=== PATIENT | female | born 1935 | race Caucasian/White ===

== ENCOUNTER 2020-01-09 09:56 | Outpatient (CLI) | payer MEDICARE, OTHER, SELFPAY ==
--- NOTE | 2020-01-09 10:04 | XR_ITS ---
WS: [id number] PROCEDURE: XR chest 2V* [id number] CLINICAL INFORMATION: COUGH COMPARISON: None. FINDINGS: Heart: Cardiomegaly. Lungs: Moderate chronic emphysematous changes. No acute pulmonary infiltrates. Bones: Hypertrophic changes thoracic spine. Cholecystectomy clips. Moderate thoracic kyphosis. XR/XR chest 2V* [id number] IMPRESSION: 1. Moderate chronic emphysematous changes. No acute pulmonary infiltrates. 2. Cardiomegaly.
== END 2020-01-09 09:57 | disposition home or self-care (01) ==
LOC: RADWPI 10:02
PROVIDERS: Family Provider Family Medicine; PCP Family Medicine; Visit Provider Specialist
DX: R05 Cough (principal); I51.7 Cardiomegaly
CPT/HCPCS: 71046

== ENCOUNTER 2020-01-22 10:02 | Outpatient (CLI) | payer MEDICARE, OTHER, SELFPAY ==
--- NOTE | 2020-01-22 10:07 | CT_ITS ---
WS: [id number] CT NECK TECHNIQUE: Contrast-enhanced CT of the neck with coronal and sagittal reformatted images. CLINICAL INFORMATION: R13.19 DYSPHAGIA COMPARISON: CT neck 6 20,017 DLP: 2414.[address] scans at [facility] use at least one of these dose optimization techniques: automat ed exposure control; mA and/or kV adjustment per patient size (includes targeted exams where dose is matched to clinical indication); or iterative reconstruction. FINDINGS: Dental artifact degrades images at the floor of mouth. Parotid glands are normal. Normal zaragoza bmandibular glands. Visualized posterior nasopharynx and tongue base appear normal. Normal parapharyn geal fat. Normal palatine tonsils. Normal submandibular glands. No evidence of supraglottic or glottic mass. Multinodular right thyroid goiter with left thyroid lobe ctomy. This appears unchanged since 2017. Mass effect on the trachea at the thoracic inlet is similar in appearance. No airway narrowing. Partially visualized intracranial contents appear unremarkable. Mastoid air cells and paranasal sinus es are well aerated. No cervical lymphadenopathy. CT/CT neck w con* [id number] IMPRESSION: 1. Multinodular right thyroid goiter appears stable since 2017. Stable mass ef fect on the trachea at the thoracic inlet. No airway narrowing. 2. Prior postoperative changes left thyroid lobectomy 3. No evidence of supraglottic or glottic mass. 4. No cervical lymphadenopathy. 5. No other significant findings.
[2020-01-22 10:56] LABS: Blood Urea Nitrogen 11 mg/dL (8-23)
[2020-01-22] MEDS: iodixanol 320 mg/mL 100mL Btl IV (11:02)
== END 2020-01-22 10:03 | disposition home or self-care (01) ==
LOC: RADWPI 10:07
PROVIDERS: Family Provider Family Medicine; PCP Family Medicine; Visit Provider Specialist
DX: R13.19 Other dysphagia (principal); E04.2 Nontoxic multinodular goiter; E89.0 Postprocedural hypothyroidism
CPT/HCPCS: 70491; 82565; 84520; Q9967

== ENCOUNTER 2020-05-05 16:33 | Outpatient (CLI) | payer MEDICARE, OTHER, SELFPAY ==
--- NOTE | 2020-05-05 17:29 | MR_ITS ---
WS: [id number] MRI LUMBAR SPINE NONCONTRAST TECHNIQUE: Sagittal T1, T2 and STIR imaging. Axial T1 and T2 imaging. CLINICAL INFORMATION: SPINAL STENOSIS COMPARISON: MRI November 20, 2017 FINDINGS: Mild lumbar curve. No acute compression. Slight retrolisthesis L1 on L2 and L2 on L3. Prior postopera tive changes pedicle screw fixation L4 and L5 with laminectomy defects. L1-L2: Mild disc bulging with mild central canal stenosis. Narrowing of the right subarticular recess . Mild right foraminal narrowing. Mild facet arthropathy. Shallow right subarticular protrusion. L2-L3: Mild disc bulge with endplate ridging. Moderate central canal stenosis. Impingement on jim ing L3 nerve roots bilaterally. Moderate facet arthropathy. Mild right and no significant left forami nal narrowing. L3-L4: Mild disc osteophyte complex with endplate ridging. Moderate central canal stenosis and imping ement traversing L4 nerve roots. Moderate facet arthropathy ligament flavum hypertrophy. Moderate diamante ateral foraminal narrowing. L4-L5: Postoperative changes pedicle screw fixation with laminectomy defects. Mild left and no signif icant right foraminal narrowing. Spinal canal is patent. L5-S1: Mild disc bulging with a shallow right pericentral protrusion. Impingement traversing right S1 nerve root. Mild right and no left foraminal narrowing. Mild central canal stenosis. Mild facet arth ropathy. Moderate thoracic kyphosis in the thoracic spine with small disc protrusions. This can be further gabriele luated with thoracic spine MRI if indicated. MR/MR lumbar spine wo con* [id number] IMPRESSION: 1. Mild lumbar curve. No acute compression. 2. Postoperative changes pedicle screw fixation L4-5 laminectomy defects. No r ecurrent stenosis at these levels. 3. Moderate central canal stenosis L2-L3 and L3-L4 with impingement on the tra versing L3 and L4 nerve roots bilaterally. 4. Shallow right subarticular protrusion L1-2 impinges the traversing right L2 nerve root. 5. Shallow right subarticular protrusion L5-S1 impinges the traversing right S 1 nerve root in the subarticular recess. Mild right L5-S1 foraminal narrowing. 6. Otherwise mild to moderate bony foraminal narrowing described above worse a t bilateral L3-4. 7. Overall no significant interval changes since 2018.
== END 2020-05-05 16:34 | disposition home or self-care (01) ==
LOC: RADSHAW 16:39
PROVIDERS: PCP Family Medicine; Visit Provider Family Medicine
DX: M48.061 Spinal stenosis, lumbar region without neurogenic claudication (principal); M51.26 Other intervertebral disc displacement, lumbar region; M51.27 Other intervertebral disc displacement, lumbosacral region
CPT/HCPCS: 72148

== ENCOUNTER → 2020-05-13 11:48 | Outpatient (BNVA) | payer MEDICARE, OTHER, SELFPAY | PROVIDERS: PCP Family Medicine; Visit Provider Nurse Practitioner Family | DX: Z11.59 Encounter for screening for other viral diseases (principal); J06.9 Acute upper respiratory infection, unspecified | CPT/HCPCS: 87635 ==

== ENCOUNTER 2020-09-30 13:53 | Outpatient (CLI) | payer MEDICARE, OTHER, SELFPAY ==
--- NOTE | 2020-09-30 14:01 | US_ITS ---
WS: [id number] THYROID ULTRASOUND REASON FOR EXAM: THYROID NODULE TECHNIQUE: Grayscale and Doppler ultrasound examination of the thyroid gland. FINDINGS: RIGHT: Right thyroid gland measures 6.0 cm x 3.2 cm x 2.9 cm. Right thyroid volume equals 28.4 ccm3. Remaini ng right lobe of the thyroid is very inhomogeneous in echo character. There is a vaguely defined area of hyper echogenicity measures 2.09 x 1.75 cm. In the mid right lobe of the thyroid. The appearance of the right lobe of the thyroid is unchanged compared to the previous study of 11/22/2018. The echogen ic masslike area is unchanged in volume or character. LEFT: Left thyroid gland removed at age 18. Thyroid isthmus: 1.0 mm. US/US thyroid [id number] IMPRESSION: Abnormal right lobe of the thyroid as above unchanged from examination 11/22/[address] scan 03/16/2010 demonstrated a grossly abnormal right lobe of the thyroid wit h areas of hyperenhancement and low-attenuation nodules. The area of hyperenhan cement was shown to be moderately hyperechoic and was biopsied under ultrasound 04/21/2010. The lesion at that time measured 1.2 x 1.3 cm. It is been followed with additional CTs and ultrasounds since that time. It has slowly grown up to this point. The remainder of the gland appears unchanged.
== END 2020-09-30 13:54 | disposition home or self-care (01) ==
LOC: US 13:57
PROVIDERS: PCP Family Medicine; Visit Provider Family Medicine
DX: E04.1 Nontoxic single thyroid nodule (principal)
CPT/HCPCS: 76536

== ENCOUNTER 2020-10-15 07:58 | Outpatient (CLI) | payer MEDICARE, OTHER, SELFPAY ==
--- NOTE | 2020-10-15 08:09 | CT_ITS ---
WS: [id number] CT HEAD TECHNIQUE: Noncontrast and contrast-enhanced CT of the head. CLINICAL INFORMATION: HEADACHE, ATYPICAL COMPARISON: None. DLP: 1851.[address] scans at [facility] use at least one of these dose optimization techniques: automat ed exposure control; mA and/or kV adjustment per patient size (includes targeted exams where dose is matched to clinical indication); or iterative reconstruction. FINDINGS: No evidence of intracranial hemorrhage or mass effect. Ventricular system and basal cisterns are rosario nt. Mild small vessel changes. Moderate parenchymal volume loss worse in the frontal lobes. No abnorm al intracranial enhancement. Normal posterior fossa. No extra-axial fluid collections. No evidence of mass or mass effect. Paranasal sinuses and mastoid air cells are well aerated. CT/CT head wo/w con [id number] IMPRESSION: 1. No evidence of intracranial hemorrhage or mass effect. 2. Mild small vessel changes with moderate parenchymal volume loss worse in th e frontal lobes. 3. No abnormal intracranial enhancement. 4. No other significant findings.
[2020-10-15 08:34] LABS: Blood Urea Nitrogen 14 mg/dL (8-23)
[2020-10-15] MEDS: iohexol 300 mg/mL 100 mL Btl IV (08:47)
== END 2020-10-15 07:59 | disposition home or self-care (01) ==
LOC: RADWPI 08:05
PROVIDERS: PCP Family Medicine; Visit Provider Family Medicine
DX: R51.9 Headache, unspecified (principal)
CPT/HCPCS: 70470; 82565; 84520; Q9967

== ENCOUNTER 2020-12-21 15:16 | Outpatient (CLI) | payer MEDICARE, OTHER, SELFPAY ==
--- NOTE | 2020-12-21 15:32 | XRR_ITS ---
PROCEDURE INFORMATION: Exam: XR Lumbosacral Spine Exam date and time: 12/21/2020 4:13 PM Age: 85 years old Clinical indication: Other: Lt hip pain; Prior surgery; Surgery type: Lumbar; Additional info: Lt. Hip pain TECHNIQUE: Imaging protocol: XR of the lumbosacral spine. Views: 2 or 3 views. COMPARISON: MR lumbar spine wo con* [id number] 05/05/2020 5:43 PM FINDINGS: Bones/joints: L4-L5 posterior fusion with unremarkable alignment. No vertebral subluxation. Severe disc disease at each level. Diffuse facet joint arthropathy. No lytic, aggressive lesion. Soft tissues: Unremarkable. Intraperitoneal space: Right upper quadrant surgical clips. Other findings: No fractures. XR/XR lumbar spine 2-3V* [id number] IMPRESSION: 1. Negative for acute abnormality. 2. Severe diffuse spondyloarthropathy changes.
--- NOTE | 2020-12-21 15:32 | XRR_ITS ---
PROCEDURE INFORMATION: Exam: XR Left Hip Exam date and time: 12/21/2020 4:13 PM Age: 85 years old Clinical indication: Hip pain; Left hip; Additional info: Lt hip pain TECHNIQUE: Imaging protocol: XR Left hip. Views: 2 or 3 views hip with pelvis when performed. COMPARISON: No relevant prior studies available. FINDINGS: Bones/joints: Negative for fracture. Normal joint alignment. Acetabular surface arthritis changes. No significant joint space loss. Negative for osteonecrosis. No lytic, aggressive bone lesion. Soft tissues: Unremarkable. XR/XR hip LT 2-3V wo/w pel* [id number] IMPRESSION: No acute abnormality.
== END 2020-12-21 15:17 | disposition home or self-care (01) ==
PROVIDERS: PCP Family Medicine; Visit Provider Family Medicine
DX: M25.552 Pain in left hip (principal)
CPT/HCPCS: 72100; 73502

== ENCOUNTER → 2022-01-04 11:24 | Outpatient (BNVA) | payer MEDICARE, OTHER, SELFPAY | PROVIDERS: PCP Family Medicine; Visit Provider Family Medicine | DX: F32.A Depression, unspecified (principal); M54.9 Dorsalgia, unspecified; G89.29 Other chronic pain; M19.90 Unspecified osteoarthritis, unspecified site; I10 Essential (primary) hypertension | CPT/HCPCS: 80053; 85025 ==

== ENCOUNTER → 2022-04-05 13:54 | Outpatient (BNVA) | payer MEDICARE, OTHER, SELFPAY | PROVIDERS: PCP Family Medicine; Visit Provider Family Medicine | DX: L98.9 Disorder of the skin and subcutaneous tissue, unspecified (principal) | CPT/HCPCS: 88304 ==

== ENCOUNTER → 2022-05-05 13:45 | Outpatient (BNVA) | payer MEDICARE, OTHER, SELFPAY | PROVIDERS: PCP Family Medicine; Visit Provider Family Medicine | DX: I10 Essential (primary) hypertension (principal); M06.9 Rheumatoid arthritis, unspecified; I50.9 Heart failure, unspecified; R53.83 Other fatigue; Z00.00 Encounter for general adult medical examination without abnormal findings | CPT/HCPCS: 80053; 85025 ==

== ENCOUNTER → 2022-08-09 09:30 | Outpatient (BNVA) | payer MEDICARE, OTHER, SELFPAY | PROVIDERS: PCP Family Medicine; Visit Provider Family Medicine | DX: M19.90 Unspecified osteoarthritis, unspecified site (principal); I10 Essential (primary) hypertension; I50.9 Heart failure, unspecified; L98.9 Disorder of the skin and subcutaneous tissue, unspecified; L57.0 Actinic keratosis; R53.83 Other fatigue; M06.9 Rheumatoid arthritis, unspecified; R41.3 Other amnesia; F32.A Depression, unspecified | CPT/HCPCS: 80053; 80061; 83880; 85025 ==

== ENCOUNTER → 2022-12-07 11:24 | Outpatient (BNVA) | payer MEDICARE, OTHER, SELFPAY | PROVIDERS: PCP Family Medicine; Visit Provider Family Medicine | DX: I10 Essential (primary) hypertension (principal); M19.90 Unspecified osteoarthritis, unspecified site; F32.A Depression, unspecified; I50.9 Heart failure, unspecified | CPT/HCPCS: 80053; 85025 ==

== ENCOUNTER → 2022-12-21 12:06 | Outpatient (BNVA) | payer MEDICARE, OTHER, SELFPAY | PROVIDERS: PCP Family Medicine; Visit Provider Family Medicine | DX: L98.9 Disorder of the skin and subcutaneous tissue, unspecified (principal) | CPT/HCPCS: 88304 ==

== ENCOUNTER 2023-03-18 02:06 | Emergency (ER) | payer MEDICARE, OTHER, SELFPAY ==
[2023-03-18 02:07] VITALS: BP 180/84; PULSE 58; RESP 16; TEMP 36.6; O2SAT 98; BMI 27.4
--- NOTE | 2023-03-18 02:11 | XRR_ITS ---
PROCEDURE INFORMATION: Exam: XR Lumbosacral Spine Exam date and time: 03/18/2023 2:15 AM Age: 87 years old Clinical indication: Injury or trauma; Blunt trauma (contusions or hematomas); Prior surgery; Surgery date: 6+ months; Surgery type: Lumbar fusion; Patient HX: [facility] in [facility]. C/O low back and RT hip pain. TECHNIQUE: Imaging protocol: Radiologic exam of the lumbosacral spine. Views: 2 or 3 views. COMPARISON: CR XR lumbar spine 2-3V* [id number] 12/21/2020 4:16 PM FINDINGS: Bones/joints: The patient is status post posterior fixation at L4-L5. Bilateral transpedicular screws are seen at L4 and L5. There is mild dextroscoliosis. Otherwise gross anatomic alignment is maintained. There is no evidence of acute fracture. There is moderate to advanced multilevel degenerative disc disease. Soft tissues: Unremarkable. XR/XR lumbar spine 2-3V* [id number] IMPRESSION: No evidence of acute fracture.
--- NOTE | 2023-03-18 02:11 | XRR_ITS ---
PROCEDURE INFORMATION: Exam: XR Right Hip Exam date and time: 03/18/2023 2:15 AM Age: 87 years old Clinical indication: Injury or trauma; Blunt trauma (contusions or hematomas); Right; Patient HX: [facility] arrival from [facility] for fall in bathroom. C/O low back and RT hip pain. TECHNIQUE: Imaging protocol: Radiologic exam of the right hip. Views: 1 view hip with pelvis when performed. COMPARISON: CR XR lumbar spine 2-3V* [id number] 12/21/2020 4:16 PM FINDINGS: Bones/joints: There is osteopenia present. No acute fracture. Soft tissues: Unremarkable. XR/XR hip RT 2-3V wo/w pel* [id number] IMPRESSION: No acute findings.
--- NOTE | 2023-03-18 02:13 | W.ED.FALL ---
HPI - Fall General: Chief Complaint: Fall Stated Complaint: FALL Time Seen by Provider: 03/18/23 02:07 Source: patient and EMS Mode of arrival: EMS Limitations: no limitations History of Present Illness: 87-year-old female who is on the bathroom and fell off the toilet tonight. She complains of some low back pain and pain to her right buttocks denies hitting her head no loss conscious rates her pain a 1 out of 10 currently she states its worse with movement. She does have dementia full history is a little difficult Associated symptoms-after fall: Denies abdominal pain, chest pain, headache(s) or neck pain Review of Systems Const: Denies: fever(s) or chills ENMT: Denies: throat pain or dental pain Card: Denies: chest pain Resp: Denies: dyspnea GI: Denies: abdominal pain, nausea, vomiting or diarrhea Musc: Reports: back pain and extremity pain; Denies: neck pain Skin/Breast: Denies: rash Neuro: Denies: headache(s) PFSH ED PFSH: Medical History Congestive heart failure Depression Hypertension Memory loss Osteoarthritis Rheumatoid arthritis Physical Exam Const: COMMON NORMALS: no acute distress and healthy appearing HENMT: COMMON NORMALS: normocephalic and atraumatic HEAD & SCALP: normocephalic and atraumatic Eye: COMMON NORMALS: Equal, round and reactive pupils present and EOMs intact bilaterally PUPIL: Yes Equal, round and reactive pupils present Neck/C-Spine: COMMON NORMALS: full ROM and supple CERVICAL SPINE: No pain with cervical ROM and No Cervical spine tenderness Chest: COMMONS NORMALS: normal inspection of the chest and normal palpation of entire chest wall Resp: COMMON NORMALS: normal respiratory effort, No retractions, No use of accessory muscles and clear to auscultation bilaterally AUSCULTATION: clear to auscultation bilaterally Cardio: COMMON NORMALS: regular rate, regular rhythm and No murmurs present (Cardio) RATE: regular rate RHYTHM: regular rhythm GI: COMMON NORMALS: Normal to inspection, nondistended, normoactive bowel sounds present, Soft to palpation, non-tender and no masses PALPATION: Yes Soft to palpation Back/Pelvis: OTHER: Contusion noted to right lower back some slight pain over that contusion mild midline tenderness no pain with range of motion of her right hip Extremity: COMMON NORMALS: normal to inspection and full ROM Neuro: COMMON NORMALS: moves all extremities and no focal motor deficits Psych: COMMON NORMALS: mental status grossly normal, Normal thought process present and cooperative THOUGHT PROCESS: Normal thought process present Skin: COMMON NORMALS: no rashes or lesions noted and no wounds GENERAL SKIN EXAM: no rashes or lesions noted Course Vital Signs: Vital signs: Vital Signs Temperature 97.8 F 03/18/23 02:07 Pulse Rate 58 L 03/18/23 02:07 Respiratory Rate 16 03/18/23 02:07 Blood Pressure 173/74 03/18/23 03:26 Pulse Oximetry 98 03/18/23 02:07 MDM - Fall Medical Decision Making Patient presents here with a low back contusion after a fall CT of her head and x-rays were all normal she is ambulatory here without difficulty she is stable for discharge back to the assisted. Medical Records I reviewed the patient's medical records. Lab Data I reviewed the patient's lab results. Radiology Impressions Hip/Pelvis X-Ray 03/18/23 02:11 IMPRESSION: No acute findings. Lumbar Spine X-Ray 03/18/23 02:11 IMPRESSION: No evidence of acute fracture. Head CT 03/18/23 02:19 IMPRESSION: Mild small vessel disease. No evidence of acute intracranial process. Discharge Plan Discharge Patient Disposition: Home Clinical Impression: Contusion, Fall Condition: Stable Prescriptions: No Action folic acid 400 mcg tablet 0.8 mg PO BID lidocaine (PF) 10 mg/mL (1 %) solution 10 mg SUBCUT ONCE Qty: 2 0RF aspirin [Adult Low Dose Aspirin] 81 mg tablet,delayed release (DR/EC) 81 mg PO DAILY polyethylene glycol 3350 [Miralax] 17 gram/dose powder 17 g PO DAILY PRN furosemide 20 mg tablet 20 mg PO DAILY Qty: 60 3RF Rx Instructions: take t-2 tabs as needed for edema, take potassium with this carvedilol 12.5 mg tablet See Rx Instructions .ROUTE .COMPLEX Qty: 270 3RF Dose Instruction: TAKE 1 TABLET BY MOUTH IN THE MORNING AND 2 TABLETS IN THE EVENING Rx Instructions: TAKE 1 TABLET BY MOUTH IN THE MORNING AND 2 TABLETS IN THE EVENING methotrexate sodium 2.5 mg tablet See Rx Instructions .ROUTE .COMPLEX Qty: 180 3RF Dose Instruction: TAKE 5 TABLETS BY MOUTH WEEKLY NEEDED Rx Instructions: TAKE 5 TABLETS BY MOUTH WEEKLY NEEDED famotidine 20 mg tablet See Rx Instructions .ROUTE .COMPLEX Qty: 180 3RF Dose Instruction: TAKE 1 TABLET BY MOUTH TWICE DAILY Rx Instructions: TAKE 1 TABLET BY MOUTH TWICE DAILY fluoxetine 40 mg capsule 40 mg PO DAILY Qty: 30 11RF potassium chloride 10 mEq tablet,ER particles/crystals See Rx Instructions .ROUTE .COMPLEX Qty: 90 3RF Dose Instruction: TAKE 1 TABLET BY MOUTH DAILY Rx Instructions: TAKE 1 TABLET BY MOUTH DAILY fentanyl 12 mcg/hr patch 72 hour 1 patch transdermal Q72H 30 Days Qty: 10 0RF hydrocodone-acetaminophen 5-325 mg tablet 1 tab PO QID PRN (Reason: pain) 30 Days Qty: 120 0RF Discharge Orders: Discharge ED (Routine); Ordered 03/18/23 Ordered By: Isabel Lim Referrals: Ezequiel Lynch MD [Primary Care Provider] - 1-3 days Discharge Diet: Advance as tolerated Discharge Activity: Resume usual activity Patient Instructions: Contusion in Adults (ED), Fall Prevention (ED) Coding Level of Care Code ED [employer] for Rob Chowdary
--- NOTE | 2023-03-18 02:19 | CTR_ITS ---
PROCEDURE INFORMATION: Exam: CT Head Without Contrast Exam date and time: 03/18/2023 2:35 AM Age: 87 years old Clinical indication: Injury or trauma; Blunt trauma (contusions or hematomas); Patient HX: [facility] from [facility] for fall in bathroom. History of dementia. TECHNIQUE: Imaging protocol: Computed tomography of the head without contrast. Radiation optimization: All CT scans at this facility use at least one of these dose optimization techniques: automated exposure control; mA and/or kV adjustment per patient size (includes targeted exams where dose is matched to clinical indication); or iterative reconstruction. REPORTING DATA: Count of CT and Cardiac NM exams in prior 12 months: This patient has received 0 known CTs and 0 known cardiac nuclear medicine studies in the 12 months prior to the current study. COMPARISON: CT head wo/w con [id number] 10/15/2020 8:38 AM RADIATION DOSE METRICS: Total DLP (mGy-cm): 1030.88 FINDINGS: Brain: There is mild small vessel disease. There is no evidence of acute parenchymal hemorrhage, extra-axial collection, or acute infarction. There is no mass effect, midline shift, or downward herniation. Cerebral ventricles: No ventriculomegaly. Paranasal sinuses: Visualized sinuses are unremarkable. No fluid levels. Mastoid air cells: Visualized mastoid air cells are well aerated. Bones/joints: Unremarkable. No acute fracture. Soft tissues: Unremarkable. CT/CT head wo con* [id number] IMPRESSION: Mild small vessel disease. No evidence of acute intracranial process.
[2023-03-18 02:49] VITALS: BP 172/68
[2023-03-18 03:26] VITALS: BP 173/74
== END 2023-03-18 03:28 | disposition home or self-care (01) ==
PROVIDERS: Emergency Provider Emergency Medicine; PCP Family Medicine
DX: S30.0XXA Contusion of lower back and pelvis, initial encounter (principal); Z79.82 Long term (current) use of aspirin; I11.0 Hypertensive heart disease with heart failure; I50.9 Heart failure, unspecified; W18.11XA Fall from or off toilet without subsequent striking against object, initial encounter
CPT/HCPCS: 70450; 72100; 73502; 99284

== ENCOUNTER → 2023-03-23 09:19 | Outpatient (BNVA) | payer MEDICARE, OTHER, SELFPAY | PROVIDERS: PCP Family Medicine; Visit Provider Family Medicine | DX: I10 Essential (primary) hypertension (principal); W19.XXXA Unspecified fall, initial encounter; R30.0 Dysuria; R41.0 Disorientation, unspecified | CPT/HCPCS: 80053; 81000; 82306; 82607; 85025; 86140; 87077; 87086; 87184 ==

== ENCOUNTER → 2023-07-18 11:09 | Outpatient (BNVA) | payer MEDICARE, OTHER, SELFPAY | PROVIDERS: PCP Family Medicine; Visit Provider Family Medicine | DX: I11.0 Hypertensive heart disease with heart failure (principal); I50.9 Heart failure, unspecified; M06.9 Rheumatoid arthritis, unspecified; M19.90 Unspecified osteoarthritis, unspecified site | CPT/HCPCS: 80053; 85025 ==

== ENCOUNTER → 2023-07-28 14:32 | Outpatient (BNVA) | payer MEDICARE, OTHER, SELFPAY | PROVIDERS: PCP Family Medicine; Visit Provider Podiatrist Foot & Ankle Surgery | DX: L84 Corns and callosities; M20.41 Other hammer toe(s) (acquired), right foot; M20.42 Other hammer toe(s) (acquired), left foot; M21.612 Bunion of left foot; M21.611 Bunion of right foot | CPT/HCPCS: 99203 ==

== ENCOUNTER → 2023-10-26 10:40 | Outpatient (BNVA) | payer MEDICARE, OTHER, SELFPAY | PROVIDERS: PCP Family Medicine; Visit Provider Podiatrist Foot & Ankle Surgery | DX: L84 Corns and callosities; M20.41 Other hammer toe(s) (acquired), right foot; M20.42 Other hammer toe(s) (acquired), left foot; M21.611 Bunion of right foot; M21.612 Bunion of left foot | CPT/HCPCS: 99213 ==

== ENCOUNTER → 2024-02-13 10:42 | Outpatient (BNVA) | payer MEDICARE, OTHER, SELFPAY | PROVIDERS: PCP Family Medicine; Visit Provider Family Medicine | DX: I11.0 Hypertensive heart disease with heart failure (principal); I50.9 Heart failure, unspecified; M06.9 Rheumatoid arthritis, unspecified | CPT/HCPCS: 80053; 85025 ==

== ENCOUNTER → 2024-02-20 13:00 | Outpatient (BNVA) | payer MEDICARE, OTHER, SELFPAY | PROVIDERS: PCP Family Medicine; Visit Provider Podiatrist Foot & Ankle Surgery | DX: L84 Corns and callosities; M20.41 Other hammer toe(s) (acquired), right foot; M20.42 Other hammer toe(s) (acquired), left foot; M21.611 Bunion of right foot; M21.612 Bunion of left foot; M21.622 Bunionette of left foot; M21.621 Bunionette of right foot | CPT/HCPCS: 99213 ==

== ENCOUNTER 2024-03-28 04:02 | Emergency (ER) | payer MEDICARE, OTHER, SELFPAY ==
[2024-03-28 04:02] VITALS: BP 192/80; PULSE 66; RESP 14; TEMP 36.1; O2SAT 98
--- NOTE | 2024-03-28 04:04 | CTR_ITS ---
PROCEDURE INFORMATION: Exam: CT Head Without Contrast Exam date and time: 03/28/2024 4:11 AM Age: 88 years old Clinical indication: Injury or trauma; Fall; Blunt trauma (contusions or hematomas); Consciousness not specified; Additional info: Fall, head injury TECHNIQUE: Imaging protocol: Computed tomography of the head without contrast. Radiation optimization: All CT scans at this facility use at least one of these dose optimization techniques: automated exposure control; mA and/or kV adjustment per patient size (includes targeted exams where dose is matched to clinical indication); or iterative reconstruction. COMPARISON: CT head wo con* [id number] 03/18/2023 2:35 AM RADIATION DOSE METRICS: Total DLP (mGy-cm): 115.04 FINDINGS: Brain: There is mild small vessel disease. There is no evidence of acute parenchymal hemorrhage, extra-axial collection, or acute infarction. There is no mass effect, midline shift, or downward herniation. Cerebral ventricles: No ventriculomegaly. Paranasal sinuses: Visualized sinuses are unremarkable. No fluid levels. Mastoid air cells: Visualized mastoid air cells are well aerated. Bones: Unremarkable. No acute fracture. Soft tissues: Unremarkable. CT/CT head wo con* [id number] IMPRESSION: Mild small vessel disease. No evidence of acute intracranial process.
--- NOTE | 2024-03-28 04:08 | W.ED.FALL ---
HPI - Fall General: Chief Complaint: Fall Stated Complaint: fall History of Present Illness: 88-year-old female with history of dementia who presents emergency room after having a fall this morning. She lost her balance while she was trying to go to the bathroom. She has a skin tear on her right arm and apparently she hit her head. She is No bruising or bleeding on her head. She is at her baseline mentally. No loss of consciousness. No altered mental status. No focal motor deficits. No chest pain. No shortness of breath. No abdominal pain. No extremity deformities. Related Data Home Medications Medication Instructions Recorded Confirmed aspirin 81 mg tablet,delayed 81 mg PO DAILY 02/01/22 02/20/24 release (Adult Low Dose Aspirin) polyethylene glycol 3350 17 17 g PO DAILY PRN 02/01/22 02/20/24 gram/dose oral powder (Miralax) folic acid 400 mcg tablet 0.8 mg PO BID 02/10/22 02/20/24 Previous Rx's Medication Instructions Recorded mecobalamin (vitamin B12) 1,000 1,000 mcg PO DAILY #30 tabs 03/24/23 mcg chewable tablet (B12 Active) furosemide 20 mg tablet See Rx Instructions .Route 06/06/23 .COMPLEX #90 tabs carvedilol 12.5 mg tablet See Rx Instructions .Route 06/22/23 .COMPLEX #270 tabs famotidine 20 mg tablet See Rx Instructions .Route 09/22/23 .COMPLEX #180 tabs hydroxyzine HCl 10 mg tablet 10 mg PO TID #90 tabs 10/19/23 potassium chloride 10 mEq See Rx Instructions .Route 12/15/23 tablet,extended release(part/cryst) .COMPLEX #90 tabs buspirone 10 mg tablet 10 mg PO BID #60 tabs 02/13/24 fentanyl 12 mcg/hr transdermal 1 patch transdermal Q72H 1 month 02/13/24 patch #10 ea hydrocodone 5 mg-acetaminophen 325 1 tab PO QID PRN pain 1 month #120 02/13/24 mg tablet tabs Allergies Allergy/AdvReac Type Severity Reaction Status Date / Time adhesive tape Allergy Severe unknown Verified 02/20/24 13:35 tape Allergy Mild Unknown Uncoded 02/20/24 13:35 Review of Systems Narrative: Constitutional symptoms: Negative except as documented in HPI. Skin symptoms: Negative except as documented in HPI. Eye symptoms: Negative except as documented in HPI. ENMT symptoms: Negative except as documented in HPI. Respiratory symptoms: Negative except as documented in HPI. Cardiovascular symptoms: Negative except as documented in HPI. Gastrointestinal symptoms: Negative except as documented in HPI. Genitourinary symptoms: Negative except as documented in HPI. Musculoskeletal symptoms: Negative except as documented in HPI. Neurologic symptoms: Negative except as documented in HPI. Psychiatric symptoms: Negative except as documented in HPI. Endocrine symptoms: Negative except as documented in HPI. PFSH ED PFSH: Medical History Osteoarthritis Hypertension Depression Memory loss Rheumatoid arthritis Congestive heart failure Social History Smoking and tobacco/nicotine status: never used tobacco/nicotine Physical Exam Narrative: EXAM NARRATIVE: General: Alert, no acute distress. Skin: Warm, dry. Skin tears on the right forearm Head: Normocephalic, atraumatic. Neck: Supple, trachea midline. Eye: Extraocular movements are intact. Ears, nose, mouth and throat: mucosa moist. Cardiovascular: Regular, Normal peripheral perfusion. Respiratory: Lungs are clear to auscultation, respirations are non-labored, breath sounds are equal, Symmetrical chest wall expansion. Gastrointestinal: Soft, Nontender, Non distended Musculoskeletal: Normal ROM, no deformity. Neurological: Alert, No focal neurological deficit observed. Psychiatric: Cooperative, appropriate mood & affect. Course Vital Signs: Vital signs: Vital Signs Temperature 96.9 F L 03/28/24 04:02 Pulse Rate 60 03/28/24 04:27 Respiratory Rate 16 03/28/24 04:27 Blood Pressure 192/80 03/28/24 04:02 Pulse Oximetry 96 03/28/24 04:27 Oxygen Delivery Me thod Room Air 03/28/24 04:02 MDM - Fall Medical Decision Making Medical decision making: Differential diagnosis including but not limited to and based on the above HPI, review of systems and physical exam: Would have concern for intracranial hemorrhage or skull fractures with fall and head injury in an elderly person. A CT was ordered to evaluate. Orders placed to evaluate differential diagnosis based on the above differential, HPI and physical exam CT head: No acute intracranial process. no intracranial hemorrhage, no evidence of infarct. no evidence of acute fracture.This was reviewed and interpreted by myself the ER physician. Reexamination: Patient remained stable. No increased work of breathing. No altered mental status. No focal motor deficits. Assessment and plan: Fall Head injury Skin tear - Discharged home - Discussed plan with patient. Answered any questions. - Evaluation and treatment of this problem were appropriate in the emergency setting. All radiology interpretation(s) finalized by discharge Discharge Plan Discharge Patient Disposition: Home Clinical Impression: Fall, Head injury, Skin tear Condition: Stable Prescriptions: No Action folic acid 400 mcg tablet 0.8 mg PO BID buspirone 10 mg tablet 10 mg PO BID Qty: 60 11RF fentanyl 12 mcg/hr patch 72 hour 1 patch transdermal Q72H 30 Days Qty: 10 0RF hydrocodone-acetaminophen 5-325 mg tablet 1 tab PO QID PRN (Reason: pain) 30 Days Qty: 120 0RF aspirin [Adult Low Dose Aspirin] 81 mg tablet,delayed release (DR/EC) 81 mg PO DAILY polyethylene glycol 3350 [Miralax] 17 gram/dose powder 17 g PO DAILY PRN hydroxyzine HCl 10 mg tablet 10 mg PO TID Qty: 90 11RF mecobalamin (vitamin B12) [B12 Active] 1,000 mcg tablet,chewable 1,000 mcg PO DAILY Qty: 30 11RF furosemide 20 mg tablet See Rx Instructions .ROUTE .COMPLEX Qty: 90 0RF Dose Instruction: TAKE 1 TABLET BY MOUTH EVERY DAY Rx Instructions: TAKE 1 TABLET BY MOUTH EVERY DAY carvedilol 12.5 mg tablet See Rx Instructions .ROUTE .COMPLEX Qty: 270 3RF Dose Instruction: TAKE 1 TABLET BY MOUTH IN THE MORNING AND 2 TABLETS IN THE EVENING Rx Instructions: TAKE 1 TABLET BY MOUTH IN THE MORNING AND 2 TABLETS IN THE EVENING famotidine 20 mg tablet See Rx Instructions .ROUTE .COMPLEX Qty: 180 3RF Dose Instruction: TAKE 1 TABLET BY MOUTH TWICE DAILY Rx Instructions: TAKE 1 TABLET BY MOUTH TWICE DAILY potassium chloride 10 mEq tablet,ER particles/crystals See Rx Instructions .ROUTE .COMPLEX Qty: 90 3RF Dose Instruction: TAKE 1 TABLET BY MOUTH DAILY Rx Instructions: TAKE 1 TABLET BY MOUTH DAILY Discharge Orders: Discharge ED (Routine); Ordered 03/28/24 Ordered By: Karon Cortez Referrals: Ezequiel Lynch MD [Primary Care Provider] - Discharge Diet: Usual diet Discharge Activity: Increase activity as tolerated Patient Instructions: Fall Prevention for Older Adults (ED), Skin Tear (ED) Activity Restrictions/Additional Instructions: Thank you for choosing [facility] for your healthcare needs today. Please realize this is an emergency room and that we are providing you with a medical screening exam and this may not be complete and all inclusive of all the testing and or work up that you may need to determine your ailment or severity of your illness. You have been screened and evaluated and felt safe for discharge. Health conditions do change or evolve sometimes and as such it is important that you follow up with your Primary Doctor to be re checked, 3-5 days is a general good time frame for follow up. You are always welcome to return to the ED for re assessment if your symptoms are worsening or you have new concerns Coding Level of Care Code ED Merchandise Director for Rob Chowdary
[2024-03-28 04:27] VITALS: PULSE 60; RESP 16; O2SAT 96
[2024-03-28] MEDS: acetaminophen 500 mg Tablet 1000 MG PO (05:17)
[2024-03-28 05:37] VITALS: BP 169/69; PULSE 65; RESP 18; O2SAT 97
[2024-03-28 06:00] VITALS: BP 169/69; PULSE 65; O2SAT 97
== END 2024-03-28 06:01 | disposition home or self-care (01) ==
PROVIDERS: Emergency Provider Emergency Medicine; PCP Family Medicine
DX: S51.811A Laceration without foreign body of right forearm, initial encounter (principal); S09.90XA Unspecified injury of head, initial encounter; F03.90 Unspecified dementia, unspecified severity, without behavioral disturbance, psychotic disturbance, mood disturbance, and anxiety; W01.0XXA Fall on same level from slipping, tripping and stumbling without subsequent striking against object, initial encounter; I11.0 Hypertensive heart disease with heart failure; I50.9 Heart failure, unspecified; Z79.82 Long term (current) use of aspirin
CPT/HCPCS: 70450; 99284

== ENCOUNTER → 2024-05-27 12:58 | Outpatient (BNVA) | payer MEDICARE, OTHER, SELFPAY | PROVIDERS: PCP Family Medicine; Visit Provider Podiatrist Foot & Ankle Surgery | DX: L84 Corns and callosities (principal); M20.41 Other hammer toe(s) (acquired), right foot; M20.42 Other hammer toe(s) (acquired), left foot; M21.611 Bunion of right foot; M21.612 Bunion of left foot | CPT/HCPCS: 99213 ==

== ENCOUNTER 2024-07-01 11:25 | Inpatient (IN) | payer MEDICARE, OTHER, SELFPAY ==
[2024-07-01] VITALS (17 sets, daily range): BP systolic 134–204; BP diastolic 58–90; PULSE 76–95; RESP 16–27; TEMP 36.9–37.9; O2SAT 92–98; BMI 27.3; BMI 29.6
--- NOTE | 2024-07-01 11:29 | XRR_ITS ---
PROCEDURE INFORMATION: Exam: XR Chest Exam date and time: 07/01/2024 12:02 PM Age: 89 years old Clinical indication: Other: AMS TECHNIQUE: Imaging protocol: Radiologic exam of the chest. Views: 1 view. COMPARISON: CR XR chest 2V* [id number] 01/09/2020 10:09 AM FINDINGS: Lungs: No focal consolidation. Mild left basilar atelectasis. Pleural spaces: No pneumothorax. No significant pleural effusion. Heart/Mediastinum: The cardiomediastinal silhouette is stable and likely within normal limits. Vasculature: Calcification of the aortic arch. Tortuosity of the descending thoracic aorta. Bones/joints: Unremarkable. XR/XR chest 1V portable [id number] IMPRESSION: No acute cardiopulmonary disease.
--- NOTE | 2024-07-01 11:58 | ECG_ITS ---
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 Measurements Intervals [place] Rate: 89 P: 59 NH: 204 QRS: -39 QRSD: 86 T: 59 QT: 317 QTc: 387 Interpretive Statements SINUS RHYTHM LEFT AXIS DEVIATION [QRS AXIS < -30] POSSIBLE ANTERIOR MYOCARDIAL INFARCTION , OF INDETERMINATE AGE [30 ms Q WAVE IN V3/V4, OR R < 0.2 mV IN V4] No previous ECG available for comparison Electronically Signed On 07-01-2024 19:24:42 FORGE HELPER by Calixto Jones M.D. [email or web address]
[2024-07-01 13:45] LABS: Basophils # 0.1 10^3/uL (0.0-0.1); Basophils % 0.7 %; Eosinophils % 0.4 %; Hematocrit 40.9 % (36-47); Mean Corpuscular HGB Conc 32.8 g/dL (30-55); Mean Corpuscular Hemoglobin 29.8 pg (27-33); Mean Corpuscular Volume 91.1 fl (85-98); Mean Platelet Volume 8.7 fL (7.4-10.4); Monocytes # 0.5 10^3/uL (0.2-0.9); Neutrophils # 6.81 10^3/uL (1.8-7.7); Neutrophils % 80.5 %; Nucleated Red Blood Cells % 0 %; Platelet Count 214 10^3/cmm (157-399); Red Blood Count 4.49 10^6/uL (3.85-5.65); Red Cell Distribution Width 12.5 % (12.1-15.1); White Blood Count 8.45 10^3/uL (3.29-11.43)
--- NOTE | 2024-07-01 13:55 | CTR_ITS ---
PROCEDURE INFORMATION: Exam: CT Head Without Contrast Exam date and time: 07/01/2024 2:02 PM Age: 89 years old Clinical indication: Altered mental status/memory loss; Patient HX: AMS, new onset. Per pts family she lives in assisted living facility, was ok yesterday and this am was having trouble feeding herself/following basic commands TECHNIQUE: Imaging protocol: Computed tomography of the head without contrast. Radiation optimization: All CT scans at this facility use at least one of these dose optimization techniques: automated exposure control; mA and/or kV adjustment per patient size (includes targeted exams where dose is matched to clinical indication); or iterative reconstruction. COMPARISON: CT head wo con* [id number] 03/28/2024 4:11 AM RADIATION DOSE METRICS: Total DLP (mGy-cm): 1040.18 FINDINGS: Brain: Mild nonspecific white matter low attenuation which may be related to microvascular ischemic changes. No acute confluent lobar ischemic infarct. No acute intracranial hemorrhage. Cerebral ventricles: The ventricles and sulci are prominent in size compatible with moderate atrophy. Paranasal sinuses: No fluid levels. Mastoid air cells: Visualized mastoid air cells are well aerated. Bones: No acute calvarial fracture. Soft tissues: Visualized soft tissues are unremarkable. CT/CT head wo con* [id number] IMPRESSION: No acute intracranial abnormality. If symptoms persist, consider further evaluation with MRI, if there are no contraindications to obtaining a MRI scan.
--- NOTE | 2024-07-01 13:56 | ED_ITS ---
HPI - Altered Mental Status 2 General: Chief Complaint: Altered Mental Status Stated Complaint: unable to feed herself and confusion Time Seen by Provider: 07/01/24 13:48 Source: patient Mode of arrival: ambulatory Limitations: no limitations History of Present Illness: 89-year-old female has a history of brad ntia per daughter patient woke up this morning more confused than normal states she is having a hard time eating due to being so confused state on the way over here confusion had improved but now is worsening patient is able to tell me her name but does not know the the date she is able to follow commands here. Related Data Home Medications Medication Instructions Recorded Confirmed aspirin 81 mg tablet,delayed 81 mg PO DAILY 02/01/22 07/01/24 release (Adult Low Dose Aspirin) polyethylene glycol 3350 17 17 g PO DAILY PRN CONSTIPATION 02/01/22 07/01/24 gram/dose oral powder (Miralax) folic acid 400 mcg tablet 0.8 mg PO BID 02/10/22 07/01/24 Folate 666 Mcg 1 tab PO BID 07/01/24 07/01/24 famotidine 20 mg tablet 20 mg PO BID 07/01/24 07/01/24 furosemide 20 mg tablet 20 mg PO BID PRN FOR EDEMA 07/01/24 07/01/24 potassium chloride 10 mEq 10 meq PO DAILY 07/01/24 07/01/24 tablet,extended release(part/cryst) propylene glycol 0.6 % eye drops 1 drp ophthalmic (eye) BID PRN Dry 07/01/24 07/01/24 (Systane Complete) Eyes vitamins A,C,P-icoa-vmicso 2,148 1 tab PO BID 07/01/24 07/01/24 mcg-113 mg-45 mg-17.4 mg tablet (PreserVision AREDS) Previous Rx's Medication Instructions Recorded mecobalamin (vitamin B12) 1,000 1,000 mcg PO DAILY #30 tabs 03/24/23 mcg chewable tablet (B12 Active) hydroxyzine HCl 10 mg tablet 10 mg PO TID #90 tabs 10/19/23 buspirone 10 mg tablet 10 mg PO BID #60 tabs 02/13/24 hydrocodone 5 mg-acetaminophen 325 1 tab PO QID PRN pain 1 month #120 04/26/24 mg tablet tabs carvedilol 12.5 mg tablet See Rx Instructions .Route 05/13/24 .COMPLEX #270 tabs donepezil 5 mg tablet (Aricept) 5 mg PO DAILY #30 tabs 05/15/24 mupirocin 2 % topical ointment 1 applic topical BID 2 weeks #22 05/27/24 grams fentanyl 12 mcg/hr transdermal 1 patch transdermal Q72H 1 month 06/03/24 patch #10 ea Allergies Allergy/AdvReac Type Severity Reaction Status Date / Time adhesive tape Allergy Severe unknown Verified 05/27/24 13:08 Review of Systems 2 Const: Denies: fever(s), chills, body aches or change in appetite ENMT: Denies: throat pain or dental pain Card: Denies: chest pain Resp: Denies: dyspnea GI: Denies: abdominal pain, nausea, vomiting or diarrhea : Denies: dysuria Musc: Denies: neck pain or back pain Skin/Breast: Denies: rash Neuro: Reports: confusion; Denies: headache(s) PFSH ED 2 PFSH: Medical History Dementia Osteoarthritis Hypertension Depression Memory loss Rheumatoid arthritis Congestive heart failure Social History Smoking and tobacco/nicotine status: never used tobacco/nicotine Physical Exam 2 Const: COMMON NORMALS: alert; negative for patient oriented x3 ORIENTATION/CONSCIOUSNESS: Yes oriented to person; not oriented to place and not oriented to time HENMT: COMMON NORMALS: normocephalic and atraumatic HEAD & SCALP: n ormocephalic and atraumatic Eye: COMMON NORMALS: Equal, round and reactive pupils present and EOMs intact bilaterally PUPIL: Yes Equal, round and reactive pupils present Neck/C-Spine: COMMON NORMALS: full ROM and supple Chest: COMMONS NORMALS: normal inspection of the chest Resp: COMMON NORMALS: normal respiratory effort, No retractions, No use of accessory muscles and clear to auscultation bilaterally AUSCULTATION: clear to auscultation bilaterally Cardio: COMMON NORMALS: regular rate, regular rhythm and No murmurs present (Cardio) RATE: regular rate RHYTHM: regular rhythm GI: COMMON NORMALS: Normal to inspection, nondistended, normoactive bowel sounds present, Soft to palpation, non-tender and no masses PALPATION: Yes Soft to palpation Extremity: COMMON NORMALS: normal to inspection and full ROM Neuro: COMMON NORMALS: moves all extremities and no focal motor deficits; negative for patient oriented x3 SENSORIUM/ORIENTATION: Yes alert, Yes oriented to person, No oriented to place and No oriented to time CRANIAL NERVES: Yes CN normal except as noted Psych: COMMON NORMALS: mental status grossly normal, Normal thought process present and cooperative THOUGHT PROCESS: Normal thought process present Skin: COMMON NORMALS: no rashes or lesions noted and no wounds GENERAL SKIN EXAM: no rashes or lesions noted Course 2 Vital Signs: Vital signs: Vital Signs Temperature 99.5 F 07/01/24 11:45 Pulse Rate 90 07/01/24 14:17 Respiratory Rate 18 07/01/24 11:45 Blood Pressure 201/88 07/01/24 14:17 Pulse Oximetry 97 07/01/24 14:17 Oxygen Delivery Me thod Room Air 07/01/24 14:17 MDM - Altered Mental Status Medical Decision Making Patient presents with altered mental status did have a fever here confusion is likely due to her fever with COVID positive. Possible UTI we will send off blood cultures will start antibiotics here. Medical Records I reviewed the patient's medical records. Lab Data I reviewed the patient's lab results. 07/01/24 13:10 07/01/24 13:10 Radiology Impressions Chest X-Ray 07/01/24 11:29 IMPRESSION: No acute cardiopulmonary disease. Head CT 07/01/24 13:55 IMPRESSION: No acute intracranial abnormality. If symptoms persist, consider further evaluation with MRI, if there are no contraindications to obtaining a MRI scan. Laboratory Results WBC 8.45 10^3/uL (3.29-11.43) 07/01/24 13:10 RBC 4.49 10^6/uL (3.85-5.65) 07/01/24 13:10 Hgb 13.40 g/dL (11.27-16.99) 07/01/24 13:10 Hct 40.9 % (36-47) 07/01/24 13:10 MCV 91.1 fl (85-98) 07/01/24 13:10 MCH 29.8 pg (27-33) 07/01/24 13:10 MCHC 32.8 g/dL (30-55) 07/01/24 13:10 RDW 12.5 % (12.1-15.1) 07/01/24 13:10 Plt Count 214 10^3/cmm (157-399) 07/01/24 13:10 MPV 8.7 fL (7.4-10.4) 07/01/24 13:10 Neut % (Auto) 80.5 % 07/01/24 13:10 Lymph % (Auto) 12.0 % 07/01/24 13:10 Boundary % (Auto) 6.0 % 07/01/24 13:10 Eos % (Auto) 0.4 % 07/01/24 13:10 Baso % (Auto) 0.7 % 07/01/24 13:10 Neut # (Auto) 6.81 10^3/uL (1.8-7.7) 07/01/24 13:10 Lymph # (Auto) 1.0 10^3/uL (0.8-4.8) 07/01/24 13:10 Boundary # (Auto) 0.5 10^3/uL (0.2-0.9) 07/01/24 13:10 Eos # (Auto) 0.0 10^3/uL (0.0-0.8) 07/01/24 13:10 Baso # (Auto) 0.1 10^3/uL (0.0-0.1) 07/01/24 13:10 Nucleated RBC % (auto) 0 % 07/01/24 13:10 Nucleated RBCs # 0.0 /100WBC 07/01/24 13:10 Sodium 132 mmol/L (136-145) L 07/01/24 13:10 Potassium 4.3 mmol/L (3.5-5.1) 07/01/24 13:10 Chloride 97 mmol/L (98-107) L 07/01/24 13:10 Carbon Dioxide 24 mmol/L (22-29) 07/01/24 13:10 Anion Gap 15.3 (5-19) 07/01/24 13:10 BUN 9 mg/dL (8-23) 07/01/24 13:10 Creatinine 0.7 mg/dL (0.5-0.9) 07/01/24 13:10 GFR Calculation Not Reportable 07/01/24 13:10 Glucose 111 mg/dL (65-115) 07/01/24 13:10 Calculated Osmolality 273 mOsm/kg (285-295) L 07/01/24 13:10 Calcium 9.7 mg/dL (8.5-10.5) 07/01/24 13:10 Magnesium 2.1 mg/dL (1.7-2.3) 07/01/24 13:10 Total Bilirubin 0.5 mg/dL (0.15-1.2) 07/01/24 13:10 AST 15 U/L (0-32) 07/01/24 13:10 ALT 10 U/L (0-33) 07/01/24 13:10 Alkaline Phosphatase 115 U/L (35-105) H 07/01/24 13:10 Total Protein 7.0 g/dL (6.6-8.7) 07/01/24 13:10 Albumin 3.9 g/dL (3.5-5.2) 07/01/24 13:10 Globulin 3.1 g/dL (1.3-4.6) 07/01/24 13:10 TSH 1.00 uIU/mL (0.27-4.20) 07/01/24 13:10 Urine Color Yellow (Yellow) 07/01/24 14:37 Urine Appearance Clear (CLEAR) 07/01/24 14:37 Urine pH 8.5 (5-7) A 07/01/24 14:37 Ur Specific [place] 1.017 (1.005-1.030) 07/01/24 14:37 Urine Protein 2+ (Negative) A 07/01/24 14:37 Urine Glucose (UA) Negative (Normal) 07/01/24 14:37 Urine Ketones Trace (Negative) 07/01/24 14:37 Urine Blood Negative (Negative) 07/01/24 14:37 Urine Nitrate Negative (Negative) 07/01/24 14:37 Urine Bilirubin Negative (Negative) 07/01/24 14:37 Urine Urobilinogen 0.2 mg/dL (Negative) 07/01/24 14:37 Ur Leukocyte Esterase 2+ (Negative) A 07/01/24 14:37 Urine RBC 11-20 /hpf (0-2) H 07/01/24 14:37 Urine WBC 51-100 /hpf (0-5) H 07/01/24 14:37 Ur Squamous Epith Cells 0-5 /hpf (0-5) 07/01/24 14:37 Amorphous Sediment Not Reportable 07/01/24 14:37 Urine Bacteria Trace /hpf (NONE) 07/01/24 14:37 Hyaline Casts 0.81 /lpf 07/01/24 14:37 Coronavirus (PCR) Positive (Negative) A 07/01/24 14:29 Influenza A (PCR) Negative (Negative) 07/01/24 14:29 Influenza Type B (PCR) Negative (Negative) 07/01/24 14:29 RSV (PCR) Negative (Negative) 07/01/24 14:29 All radiology interpretation(s) finalized by discharge Discharge Plan Discharge Patient Disposition: Admitted As Inpatient Clinical Impression: Altered mental status, COVID-19 Condition: Stable Prescriptions: No Action folic acid 400 mcg tablet 0.8 mg PO BID buspirone 10 mg tablet 10 mg PO BID Qty: 60 11RF aspirin [Adult Low Dose Aspirin] 81 mg tablet,delayed release (DR/EC) 81 mg PO DAILY polyethylene glycol 3350 [Miralax] 17 gram/dose powder 17 g PO DAILY PRN (Reason: CONSTIPATION ) hydroxyzine HCl 10 mg tablet 10 mg PO TID Qty: 90 11RF donepezil [Aricept] 5 mg tablet 5 mg PO DAILY Qty: 30 11RF Rx Instructions: may increase to 10mg daily after a month. mupirocin 2 % ointment 1 applic topical BID 14 Days Qty: 22 1RF mecobalamin (vitamin B12) [B12 Active] 1,000 mcg tablet,chewable 1,000 mcg PO DAILY Qty: 30 11RF hydrocodone-acetaminophen 5-325 mg tablet 1 tab PO QID PRN (Reason: pain) 30 Days Qty: 120 0RF carvedilol 12.5 mg tablet See Rx Instructions .ROUTE .COMPLEX Qty: 270 3RF Dose Instruction: TAKE 1 TABLET BY MOUTH IN THE MORNING AND 2 TABLETS IN THE EVENING Rx Instructions: TAKE 1 TABLET BY MOUTH IN THE MORNING AND 2 TABLETS IN THE EVENING fentanyl 12 mcg/hr patch 72 hour 1 patch transdermal Q72H 30 Days Qty: 10 0RF PreserVision AREDS 2,148 mcg-113 mg-45 mg-17.4mg Tablet 1 tab PO BID Rx Instructions: administer with AM and PM meals Folate 666 Mcg 1 tab PO BID famotidine 20 mg tablet 20 mg PO BID Rx Instructions: TAKE 1 TABLET BY MOUTH TWICE DAILY furosemide 20 mg tablet 20 mg PO BID PRN (Reason: FOR EDEMA) Rx Instructions: TAKE 1 TABLET BY MOUTH BID PRN TAKE WITH POTASSIUM potassium chloride 10 mEq tablet,ER particles/crystals 10 meq PO DAILY Rx Instructions: TAKE 1 TABLET BY MOUTH DAILY Systane Complete 0.6 % Drops 1 drp OPHTHALMIC (EYE) BID PRN (Reason: Dry Eyes) Referrals: Ezequiel Lynch MD [Primary Care Provider] - Patient Instructions: Altered Mental Status (ED) Coding Level of Care Code ED Etcher En[employer]eling for Rob Hulld NIH stroke score NIHSS Level Of Consciousness - 1a: 0 Level Of Consciousness Questions - 1b: Both Correct Level Of Consciousness Commands - 1c: Both Correct Best Gaze - 2: Normal Visual [place] - 3: No Visual Loss Facial Palsy - 4: Normal Motor Arm Right - 5: No Drift Motor Arm Left - 5: No Drift Motor Leg Right - 6: No Drift Motor Leg Left - 6: No Drift Limb Ataxia - 7: Absent Sensory - 8: Normal Best Language - 9: No Aphasia Dysarthia - 10: Normal Extinction And Inattention - 11: 0 Score Total Score: 0
[2024-07-01] MEDS: hyDRALAzine 20 mg/mL INJ 1 mL 10 MG IVP (14:17)
[2024-07-01 14:20] LABS: Alanine Aminotransferase 10 U/L (0-33); Albumin Level 3.9 g/dL (3.5-5.2); Alkaline Phosphatase 115 U/L (35-105); Anion Gap 15.3 (5-19); Aspartate Amino Transferase 15 U/L (0-32); Blood Urea Nitrogen 9 mg/dL (8-23); Calcium 9.7 mg/dL (8.5-10.5); Carbon Dioxide 24 mmol/L (22-29); Chloride 97 mmol/L (98-107); Creatinine Clr Calc Pharmacy 48.1333; Globulin 3.1 g/dL (1.3-4.6); Glucose 111 mg/dL (65-115); Magnesium 2.1 mg/dL (1.7-2.3); Osmolality Calculated 273 mOsm/kg (285-295); Potassium 4.3 mmol/L (3.5-5.1); Sodium 132 mmol/L (136-145); Total Bilirubin 0.5 mg/dL (0.15-1.2)
[2024-07-01 14:50] LABS: Bilirubin Urine Negative (Negative); Blood Urine Negative (Negative); Glucose Urine UA Negative (Normal); Ketones Urine Trace (Negative); Leukocyte Esterase Urine 2+ (Negative); Nitrate Urine Negative (Negative); Protein Urine 2+ (Negative); Specific Gravity, Urine 1.017 (1.005-1.030); Urine Appearance Clear (CLEAR); Urine Color Yellow (Yellow); Urobilinogen Urine 0.2 mg/dL (Negative); pH Urine 8.5 (5-7)
[2024-07-01 14:52] LABS: Add Urine Microscopic? YES; Bacteria Urine Trace /hpf; Hyaline Casts Urine 0.81 /lpf; Squamous Epithelial Cell Urine 0-5 /hpf (0-5); WBC Urine 51-100 /hpf (0-5)
[2024-07-01 14:56] LABS: Add Urine Culture? Yes
[2024-07-01] MEDS: acetaminophen 325 mg Tablet 650 MG PO (15:08)
[2024-07-01 15:17] LABS: Influenza A NEGATIVE (Negative); Influenza B NEGATIVE (Negative); Respiratory Syncytial Virus Ce NEGATIVE (Negative)
[2024-07-01 15:30] LABS: Covid PCR Positive (Negative)
[2024-07-01] MEDS: cefTRIAXone 1,000 mg SDV 1000 MG IVP (15:49)
--- NOTE | 2024-07-01 17:28 | P.HP_ITS ---
Providers/Chief Complaint 2 Admitting Physician: Elizabeth Walter MD Primary Care Provider: Ezequiel Lynch MD Chief Complaint: unable to feed herself and confusion History of Present Illness Amberly Young is a 89 year old female brought from [facility] due to chief complaints of URI type symptoms for 2 days. Increasing generalized weakness. Today patient became very confused. She could not carry out her usual activities such as self-feeding walking etc. Typically patient is alert awake oriented x 4. She is slightly forgetful but the confusion is new for her. She was noted to have a fever up to 101 Fahrenheit. Family was concerned that she is not getting adequate p.o. intake therefore brought her to the hospital. She is tested positive for COVID-19. History is obtained by talking to patient's son who is currently at bedside Review of Systems 2 General: Reports: ROS unobtainable due to mental status Medications/Allergies Home Medications Medication Instructions Recorded Confirmed Last Taken Type aspirin 81 mg tablet,delayed 81 mg PO DAILY 02/01/22 07/01/24 06/30/24 History release (Adult Low Dose Aspirin) polyethylene glycol 3350 17 17 g PO DAILY PRN CONSTIPATION 02/01/22 07/01/24 Unknown History gram/dose oral powder (Miralax) folic acid 400 mcg tablet 0.8 mg PO BID 02/10/22 07/01/24 06/30/24 History mecobalamin (vitamin B12) 1,000 1,000 mcg PO DAILY #30 tabs 03/24/23 07/01/24 06/30/24 Rx mcg chewable tablet (B12 Active) hydroxyzine HCl 10 mg tablet 10 mg PO TID #90 tabs 10/19/23 07/01/24 06/30/24 Rx buspirone 10 mg tablet 10 mg PO BID #60 tabs 02/13/24 07/01/24 06/30/24 Rx hydrocodone 5 mg-acetaminophen 325 1 tab PO QID PRN pain 1 month #120 04/26/24 07/01/24 06/30/24 Rx mg tablet tabs carvedilol 12.5 mg tablet See Rx Instructions .Route 05/13/24 07/01/24 06/30/24 Rx .COMPLEX #270 tabs donepezil 5 mg tablet (Aricept) 5 mg PO DAILY #30 tabs 05/15/24 07/01/24 06/30/24 Rx mupirocin 2 % topical ointment 1 applic topical BID 2 weeks #22 05/27/24 07/01/24 06/30/24 Rx grams fentanyl 12 mcg/hr transdermal 1 patch transdermal Q72H 1 month 06/03/24 07/01/24 Unknown Rx patch #10 ea Folate 666 Mcg 1 tab PO BID 07/01/24 07/01/24 06/30/24 History famotidine 20 mg tablet 20 mg PO BID 07/01/24 07/01/24 06/30/24 History furosemide 20 mg tablet 20 mg PO BID PRN FOR EDEMA 07/01/24 07/01/24 Unknown History potassium chloride 10 mEq 10 meq PO DAILY 07/01/24 07/01/24 06/30/24 History tablet,extended release(part/cryst) propylene glycol 0.6 % eye drops 1 drp ophthalmic (eye) BID PRN Dry 07/01/24 07/01/24 Unknown History (Systane Complete) Eyes vitamins A,C,J-luhz-xlyclp 2,148 1 tab PO BID 07/01/24 07/01/24 06/30/24 History mcg-113 mg-45 mg-17.4 mg tablet (PreserVision AREDS) cefdinir 300 mg capsule 300 mg PO BID #14 caps 07/02/24 Unknown Rx Allergies Allergy/AdvReac Type Severity Reaction Status Date / Time adhesive tape Allergy Severe unknown Verified 05/27/24 13:08 PFSH Acute 2 PFSH: Medical History Dementia Osteoarthritis Hypertension Depression Memory loss Rheumatoid arthritis Congestive heart failure Social History Smoking and tobacco/nicotine status: never used tobacco/nicotine Vitals/I&O/Wt Last Vital Signs Temp 100.2 F H 07/01/24 15:50 Pulse 88 07/01/24 17:00 Resp 18 07/01/24 11:45 BP 153/70 07/01/24 17:00 Pulse Ox 92 07/01/24 16:30 O2 Del Method Room Air 07/01/24 15:30 Weight last 48 hrs Weight 74.389 kg Physical Exam 2 Narrative: General: No acute distress, AO x1-2 HEENT: PERRLA, pupils bilaterally equal and reactive, pallors not present Chest: Normal vesicular breath sounds, no added sounds, equal good air entry bilaterally CVS: S1-S2 regular, no murmurs, no tachycardia, no gallops, no rubs Abdomen: Soft, nontender, no organomegaly, bowel sounds present Neuro: No focal deficits, no facial deformity, answer simple questions such as answering her name, knows that she is in the ER. But unable to have an extended conversation. She is slow to respond. Data 07/02/24 05:33 07/02/24 05:33 Micro: Microbiology 07/01/24 15:17 Blood Culture - Preliminary Blood SPECIMEN COLLECTED 07/01/24 15:11 Blood Culture - Preliminary Blood SPECIMEN COLLECTED A&P Assessment and plan (1) COVID-19: Admit to [facility] in view of COVID-19, acute encephalopathy triggered by acute viral illness Remdisivir 200mg iv x 1 followed by 100mg iv daily dexamethasone 6mg IVP daily duoneb q6h as needed empiric CTX trend inflammatory markers including CRP, D dimer (2) Altered mental status: Likely metabolic encephalopathy from acute viral illness. Possibly may be contributed by UTI. Patient's UA is showing 51-100 WBC. 2+ leukocyte esterase. (3) Confusion: (4) UTI (urinary tract infection): Urinary tract infection as evidenced by positive UA as above. Pending urine culture Empiric ceftriaxone 1 g IV every 24 hours until culture results are available. Plan DVT prophylaxis: Lovenox 40 Attestations 2 Medical Necessity Statement*: Greater than 2 midnight stay is anticipated Coding Level of Care Code Acute Code for Chg Fwd Moderate MDM includes number and complexity of problems actively addressed during encounter, amount and/or complexity of data reviewed/ordered and described risk of complication, morbidity or mortality of management as documented Diagnoses COVID-19 U07.1 Altered mental status R41.82 Confusion R41.0 UTI (urinary tract infection) N39.0
[2024-07-01] MEDS: ipratropium-albuterol 3 mL Neb INHALATION ×2 (17:57→19:52)
[2024-07-01 17:59] LABS: C Reactive Protein 39.1 mg/L (0.0-4.9)
[2024-07-01] MEDS: enoxaparin 40 mg/0.4 mL Syringe SUBCUT (18:08)
[2024-07-01] MEDS: remdesivir 200 MG in sodium chloride 0.9% (100 ml) 100 ML 100 MG IV (18:09)
[2024-07-01] MEDS: dexamethasone 4 mg/mL INJ 6 MG IVP (18:09)
--- NOTE | 2024-07-01 18:26 | PC.NURSE ---
ATTEMPTED TO CALL REPORT TO [facility]. THIS NURSE NOTIFIED BY UC AND NURSE THAT THEY HAD A LAST MINUTE CALL IN SO THEY COULD NOT TAKE PATIENT AT THIS TIME. CHARGE NURSE NOTIFIED.
[2024-07-02] VITALS (11 sets, daily range): BP systolic 124–146; BP diastolic 54–92; PULSE 59–75; RESP 14–18; TEMP 36.7–38.1; O2SAT 92–96
[2024-07-02] MEDS: ipratropium-albuterol 3 mL Neb INHALATION ×2 (02:59→07:51)
[2024-07-02 05:59] LABS: Basophils % 0.3 %; Hematocrit 36.7 % (36-47); Lymphocytes # 0.6 10^3/uL (0.8-4.8); Lymphocytes % 8.6 %; Mean Corpuscular Hemoglobin 29.5 pg (27-33); Mean Corpuscular Volume 89.5 fl (85-98); Mean Platelet Volume 8.5 fL (7.4-10.4); Monocytes # 0.2 10^3/uL (0.2-0.9); Monocytes % 2.3 %; Neutrophils # 5.73 10^3/uL (1.8-7.7); Neutrophils % 88.3 %; Nucleated Red Blood Cells % 0 %; Platelet Count 195 10^3/cmm (157-399); Red Cell Distribution Width 12.2 % (12.1-15.1); White Blood Count 6.49 10^3/uL (3.29-11.43)
[2024-07-02 06:15] LABS: D Dimer 0.82 ug/mLFEU (0-0.59)
[2024-07-02 06:24] LABS: Alanine Aminotransferase 8 U/L (0-33); Albumin Level 3.3 g/dL (3.5-5.2); Alkaline Phosphatase 90 U/L (35-105); Anion Gap 14.9 (5-19); Aspartate Amino Transferase 14 U/L (0-32); Blood Urea Nitrogen 11 mg/dL (8-23); Calcium 9.1 mg/dL (8.5-10.5); Carbon Dioxide 21 mmol/L (22-29); Chloride 99 mmol/L (98-107); Creatinine Clr Calc Pharmacy 46.4932; Globulin 2.5 g/dL (1.3-4.6); Glucose 138 mg/dL (65-115); Osmolality Calculated 274 mOsm/kg (285-295); Potassium 3.9 mmol/L (3.5-5.1); Sodium 131 mmol/L (136-145); Total Bilirubin 0.3 mg/dL (0.15-1.2); Total Protein 5.8 g/dL (6.6-8.7)
[2024-07-02] MEDS: pantoprazole DR 40 mg Tablet PO (09:37)
--- NOTE | 2024-07-02 10:18 | PC.CHAP ---
Pastoral Care Encounter/Spiritual Assessment Type of Contact [] Declined containers sales representative visit [] Patient/Family/Request visit [] Outpatient visit [] Follow-up visit [] Physician referral [] Code/Alert [] Routine visit [] Staff referral [] Actively dying [] Patient sleeping [] Family support [] [] Out of room [] Palliative care [] [] Receiving care in room [] Pre-surgical visit [] Trauma [] Long length of stay [] ICU visit [x] Other:Contact precautions. No visit. Relational/Emotional Strength [] Patient feels connected with others/family/visitors/staff [] Distress [] Loneliness/isolation [] Abandonment Spirituality of Patient [] Person of Laisha [] Attends Anabaptism of their Laisha [] Believes in Prayer [] Reads Bible or Jew materials [] There are Spiritual issues to be addressed Junior Underwriter Interventions [] Prayer [] Active listening [] Non-anxious presence [] Spiritual/emotional support [] Crisis/trauma care [] Spiritual counseling [] Bereavement support [] Provided bereavement packet [] Provided Bible/devotional materials [] Provided toy/stuffed animal, coloring book to patient or family member [] Provided Communion [] Anointing/[place] [] Salvation [] Completed spiritual assessment [] Other: Impact on Illness or Injury [] Angry [] Fearful [] Anxious [] Often cries [] Exhaustion [] Unable to work [] Unable to attend anglican [] Unable to walk/stand [] Unable to read [] Unable to drive [] Unable to eat/drink [] Unable to sleep [] Unable to be with family [] Patient intubated [] Other: Summary Time spent with patient
--- NOTE | 2024-07-02 12:47 | PM.DCS ---
Discharge Providers Date of Admission: 07/01/24 16:13 Date of Discharge: July 02, 2024 Attending Provider at Admission: Elizabeth Walter MD Attending Provider at Discharge: Paula Boo MD Primary Care Provider: Ezequiel Lynch MD Reason for Visit Reason for Visit: unable to feed herself and confusion Hospital Course Hospital Course Patient presented to the hospital from custodial due to upper respiratory symptoms for 2 days and increased generalized weakness. She was also febrile on admission. Patient diagnosed with UTI and was placed on ceftriaxone. She was also found to be COVID-positive. She was given dexamethasone. She was also given remdesivir. Patient improved and was on room air and sent back to custodial the next day. Stable at discharge. Sent with cefdinir for UTI. Physical Exam Narrative: General: No acute distress, AO x2 HEENT: PERRLA, pupils bilaterally equal and reactive, pallors not present Chest: Normal vesicular breath sounds, no added sounds, equal good air entry bilaterally CVS: S1-S2 regular, no murmurs, no tachycardia, no gallops, no rubs Abdomen: Soft, nontender, no organomegaly, bowel sounds present Neuro: non focal Discharge Data Studies Completed and Pending Completed Studies During Hospitalization Category Date Time Status CT head wo con* [id number] Stat Cat Scan 07/01/24 13:55 Completed XR chest 1V portable [id number] Stat Exams 07/01/24 11:29 Completed Pending at discharge Category Date Time Status Blood Culture Stat Lab 07/01/24 15:17 Results Urine Culture Stat Lab 07/01/24 14:37 Received Radiology Impressions Chest X-Ray 07/01/24 11:29 IMPRESSION: No acute cardiopulmonary disease. Head CT 07/01/24 13:55 IMPRESSION: No acute intracranial abnormality. If symptoms persist, consider further evaluation with MRI, if there are no contraindications to obtaining a MRI scan. Laboratory Results WBC 6.49 10^3/uL (3.29-11.43) 07/02/24 05:33 RBC 4.10 10^6/uL (3.85-5.65) 07/02/24 05:33 Hgb 12.10 g/dL (11.27-16.99) 07/02/24 05:33 Hct 36.7 % (36-47) 07/02/24 05:33 MCV 89.5 fl (85-98) 07/02/24 05:33 MCH 29.5 pg (27-33) 07/02/24 05:33 MCHC 33.0 g/dL (30-55) 07/02/24 05:33 RDW 12.2 % (12.1-15.1) 07/02/24 05:33 Plt Count 195 10^3/cmm (157-399) 07/02/24 05:33 MPV 8.5 fL (7.4-10.4) 07/02/24 05:33 Neut % (Auto) 88.3 % 07/02/24 05:33 Lymph % (Auto) 8.6 % 07/02/24 05:33 Brantley % (Auto) 2.3 % 07/02/24 05:33 Eos % (Auto) 0.0 % 07/02/24 05:33 Baso % (Auto) 0.3 % 07/02/24 05:33 Neut # (Auto) 5.73 10^3/uL (1.8-7.7) 07/02/24 05:33 Lymph # (Auto) 0.6 10^3/uL (0.8-4.8) L 07/02/24 05:33 Brantley # (Auto) 0.2 10^3/uL (0.2-0.9) 07/02/24 05:33 Eos # (Auto) 0.0 10^3/uL (0.0-0.8) 07/02/24 05:33 Baso # (Auto) 0.0 10^3/uL (0.0-0.1) 07/02/24 05:33 Nucleated RBC % (auto) 0 % 07/02/24 05:33 Nucleated RBCs # 0.0 /100WBC 07/02/24 05:33 D-Dimer 0.82 ug/mLFEU (0-0.59) H 07/02/24 05:33 Sodium 131 mmol/L (136-145) L 07/02/24 05:33 Potassium 3.9 mmol/L (3.5-5.1) 07/02/24 05:33 Chloride 99 mmol/L (98-107) 07/02/24 05:33 Carbon Dioxide 21 mmol/L (22-29) L 07/02/24 05:33 Anion Gap 14.9 (5-19) 07/02/24 05:33 BUN 11 mg/dL (8-23) 07/02/24 05:33 Creatinine 0.6 mg/dL (0.5-0.9) 07/02/24 05:33 GFR Calculation Not Reportable 07/02/24 05:33 Glucose 138 mg/dL (65-115) H 07/02/24 05:33 Calculated Osmolality 274 mOsm/kg (285-295) L 07/02/24 05:33 Calcium 9.1 mg/dL (8.5-10.5) 07/02/24 05:33 Magnesium 2.1 mg/dL (1.7-2.3) 07/01/24 13:10 Total Bilirubin 0.3 mg/dL (0.15-1.2) 07/02/24 05:33 AST 14 U/L (0-32) 07/02/24 05:33 ALT 8 U/L (0-33) 07/02/24 05:33 Alkaline Phosphatase 90 U/L (35-105) 07/02/24 05:33 C-Reactive Protein 39.1 mg/L (0.0-4.9) H 07/01/24 15:18 Total Protein 5.8 g/dL (6.6-8.7) L 07/02/24 05:33 Albumin 3.3 g/dL (3.5-5.2) L 07/02/24 05:33 Globulin 2.5 g/dL (1.3-4.6) 07/02/24 05:33 TSH 1.00 uIU/mL (0.27-4.20) 07/01/24 13:10 Urine Color Yellow (Yellow) 07/01/24 14:37 Urine Appearance Clear (CLEAR) 07/01/24 14:37 Urine pH 8.5 (5-7) A 07/01/24 14:37 Ur Specific [facility] 1.017 (1.005-1.030) 07/01/24 14:37 Urine Protein 2+ (Negative) A 07/01/24 14:37 Urine Glucose (UA) Negative (Normal) 07/01/24 14:37 Urine Ketones Trace (Negative) 07/01/24 14:37 Urine Blood Negative (Negative) 07/01/24 14:37 Urine Nitrate Negative (Negative) 07/01/24 14:37 Urine Bilirubin Negative (Negative) 07/01/24 14:37 Urine Urobilinogen 0.2 mg/dL (Negative) 07/01/24 14:37 Ur Leukocyte Esterase 2+ (Negative) A 07/01/24 14:37 Urine RBC 11-20 /hpf (0-2) H 07/01/24 14:37 Urine WBC 51-100 /hpf (0-5) H 07/01/24 14:37 Ur Squamous Epith Cells 0-5 /hpf (0-5) 07/01/24 14:37 Amorphous Sediment Not Reportable 07/01/24 14:37 Urine Bacteria Trace /hpf (NONE) 07/01/24 14:37 Hyaline Casts 0.81 /lpf 07/01/24 14:37 Coronavirus (PCR) Positive (Negative) A 07/01/24 14:29 Influenza A (PCR) Negative (Negative) 07/01/24 14:29 Influenza Type B (PCR) Negative (Negative) 07/01/24 14:29 RSV (PCR) Negative (Negative) 07/01/24 14:29 Vitals Last Vital Signs Temp 98.5 F 07/02/24 11:42 Pulse 59 L 07/02/24 11:42 Resp 17 07/02/24 11:42 BP 124/54 07/02/24 11:42 Pulse Ox 95 07/02/24 11:42 O2 Del Method Room Air 07/02/24 11:42 Discharge Plan Discharge Patient Disposition: Xfer Cust/Supp Care Facility Condition: Stable Prescriptions: New cefdinir 300 mg capsule 300 mg PO BID Qty: 14 0RF Continued folic acid 400 mcg tablet 0.8 mg PO BID buspirone 10 mg tablet 10 mg PO BID Qty: 60 11RF aspirin [Adult Low Dose Aspirin] 81 mg tablet,delayed release (DR/EC) 81 mg PO DAILY polyethylene glycol 3350 [Miralax] 17 gram/dose powder 17 g PO DAILY PRN (Reason: CONSTIPATION ) hydroxyzine HCl 10 mg tablet 10 mg PO TID Qty: 90 11RF donepezil [Aricept] 5 mg tablet 5 mg PO DAILY Qty: 30 11RF Rx Instructions: may increase to 10mg daily after a month. mupirocin 2 % ointment 1 applic topical BID 14 Days Qty: 22 1RF mecobalamin (vitamin B12) [B12 Active] 1,000 mcg tablet,chewable 1,000 mcg PO DAILY Qty: 30 11RF carvedilol 12.5 mg tablet See Rx Instructions .ROUTE .COMPLEX Qty: 270 3RF Dose Instruction: TAKE 1 TABLET BY MOUTH IN THE MORNING AND 2 TABLETS IN THE EVENING Rx Instructions: TAKE 1 TABLET BY MOUTH IN THE MORNING AND 2 TABLETS IN THE EVENING PreserVision AREDS 2,148 mcg-113 mg-45 mg-17.4mg Tablet 1 tab PO BID Rx Instructions: administer with AM and PM meals Folate 666 Mcg 1 tab PO BID famotidine 20 mg tablet 20 mg PO BID Rx Instructions: TAKE 1 TABLET BY MOUTH TWICE DAILY furosemide 20 mg tablet 20 mg PO BID PRN (Reason: FOR EDEMA) Rx Instructions: TAKE 1 TABLET BY MOUTH BID PRN TAKE WITH POTASSIUM potassium chloride 10 mEq tablet,ER particles/crystals 10 meq PO DAILY Rx Instructions: TAKE 1 TABLET BY MOUTH DAILY Systane Complete 0.6 % Drops 1 drp OPHTHALMIC (EYE) BID PRN (Reason: Dry Eyes) No Action hydrocodone-acetaminophen 5-325 mg tablet 1 tab PO QID PRN (Reason: pain) 30 Days Qty: 120 0RF fentanyl 12 mcg/hr patch 72 hour 1 patch transdermal Q72H 30 Days Qty: 10 0RF Discharge Orders: Discharge Order (Routine); Ordered 07/02/24 Ordered By: Paula Boo Referrals: [facility] [Outside] Ezequiel Lynch MD [Primary Care Provider] - 4-7 days (We have notified your physician's clinic of the need for a follow-up appointment to be scheduled. If you have not heard from them within the next 2 business days, please call them directly. ) Discharge Diet: Cardiac Discharge Activity: Resume usual activity Patient Instructions: Cefdinir (By mouth), Altered Mental Status (ED), Opioid Safety Discharge Attestations Time Spent in Discharge Care*: greater than 30 min Quality Metrics Clinical Quality Measures [ No reported AMI, CVA or VTE this stay] Coding Level of Care Code Acute Code for Evelyng Ricarda
== END 2024-07-02 13:53 | disposition intermediate care facility (04) | DRG 177 ==
LOC: ER 15:38 → ER IP 16:13 → MEDSURG 17:54
PROVIDERS: Admitting Provider Student in an Organized Health Care Education/Training Program; Emergency Provider Emergency Medicine; PCP Family Medicine; Visit Provider Internal Medicine
DX: U07.1 COVID-19 (principal); G93.41 Metabolic encephalopathy; F03.93 Unspecified dementia, unspecified severity, with mood disturbance; N39.0 Urinary tract infection, site not specified; M06.9 Rheumatoid arthritis, unspecified; I11.0 Hypertensive heart disease with heart failure; I50.9 Heart failure, unspecified; Z79.82 Long term (current) use of aspirin; Z79.891 Long term (current) use of opiate analgesic
CPT/HCPCS: 36415; 70450; 71045; 80053; 81001; 83735; 84443; 85025; 85378; 86140; 87040; 87077; 87086; 87186; 87637; 93005; 94640; 96365; 96366; 96372; 96375; 99285; J0248; J0360; J0696; J1100; J1650

== ENCOUNTER 2024-07-02 14:18 | Emergency (ER) | payer MEDICARE, OTHER, SELFPAY ==
[2024-07-02 14:24] VITALS: BP 137/73; PULSE 66; RESP 16; TEMP 36.7; O2SAT 96; BMI 26.8
--- NOTE | 2024-07-02 14:36 | ED_ITS ---
HPI - Wound/Laceration 2 General: Chief Complaint: Wound/Laceration Stated Complaint: lt leg lac (covid+) Time Seen by Provider: 07/02/24 14:31 Source: patient Mode of arrival: wheelchair Limitations: no limitations History of Present Illness: Patient is an 89-year-old female here for complaints of a laceration/a large skin tear to her left lower extremity that she sustained just prior to arriving to the emergency department. Patient was just discharged from the hospital earlier today. She was reportedly trying to leave and get into her car when she struck the leg on a portion of the wheelchair. Tetanus is up-to-date. Onset (ago): minute(s) Extremity Location: Left: lower leg Place: other (hospital) Patient tetanus UTD: Yes Context: accidental Associated symptoms: Reports no associated symptoms Treatments prior to arrival: bandage Related Data Home Medications Medication Instructions Recorded Confirmed aspirin 81 mg tablet,delayed 81 mg PO DAILY 02/01/22 07/01/24 release (Adult Low Dose Aspirin) polyethylene glycol 3350 17 17 g PO DAILY PRN CONSTIPATION 02/01/22 07/01/24 gram/dose oral powder (Miralax) folic acid 400 mcg tablet 0.8 mg PO BID 02/10/22 07/01/24 Folate 666 Mcg 1 tab PO BID 07/01/24 07/01/24 famotidine 20 mg tablet 20 mg PO BID 07/01/24 07/01/24 furosemide 20 mg tablet 20 mg PO BID PRN FOR EDEMA 07/01/24 07/01/24 potassium chloride 10 mEq 10 meq PO DAILY 07/01/24 07/01/24 tablet,extended release(part/cryst) propylene glycol 0.6 % eye drops 1 drp ophthalmic (eye) BID PRN Dry 07/01/24 07/01/24 (Systane Complete) Eyes vitamins A,C,L-ieuo-jeprgp 2,148 1 tab PO BID 07/01/24 07/01/24 mcg-113 mg-45 mg-17.4 mg tablet (PreserVision AREDS) Previous Rx's Medication Instructions Recorded mecobalamin (vitamin B12) 1,000 1,000 mcg PO DAILY #30 tabs 03/24/23 mcg chewable tablet (B12 Active) hydroxyzine HCl 10 mg tablet 10 mg PO TID #90 tabs 10/19/23 buspirone 10 mg tablet 10 mg PO BID #60 tabs 02/13/24 hydrocodone 5 mg-acetaminophen 325 1 tab PO QID PRN pain 1 month #120 04/26/24 mg tablet tabs carvedilol 12.5 mg tablet See Rx Instructions .Route 05/13/24 .COMPLEX #270 tabs donepezil 5 mg tablet (Aricept) 5 mg PO DAILY #30 tabs 05/15/24 mupirocin 2 % topical ointment 1 applic topical BID 2 weeks #22 05/27/24 grams fentanyl 12 mcg/hr transdermal 1 patch transdermal Q72H 1 month 06/03/24 patch #10 ea cefdinir 300 mg capsule 300 mg PO BID #14 caps 07/02/24 Allergies Allergy/AdvReac Type Severity Reaction Status Date / Time adhesive tape Allergy Severe unknown Verified 07/02/24 14:22 Review of Systems 2 Musc: Reports: extremity pain Skin/Breast: Reports: other (laceration/skin tear L LE) PFSH ED 2 PFSH: Medical History Dementia Osteoarthritis Hypertension Depression Memory loss Rheumatoid arthritis Congestive heart failure Social History Smoking and tobacco/nicotine status: never used tobacco/nicotine Physical Exam 2 Const: COMMON NORMALS: no acute distress, average body habitus, no limitations, alert and well nourished Extremity: COMMON NORMALS: capillary refill normal GENERAL: Yes normal exam except as noted LEFT LOWER EXTREMITY: Yes lower leg EXTREMITY IMAGE (FRONT): 1. 2. large V shaped flap laceration/skin t ear L LE; deeper in middle portion; edges are extremely thin with tension and probably not amendable for stitches Neuro: COMMON NORMALS: moves all extremities, no focal motor deficits and no sensory deficits noted SENSORIUM/ORIENTATION: Yes alert Skin: NARRATIVE SKIN EXAM: see above TRAUMA: laceration Procedures Laceration Laceration 1: Site: lower extremity Side (If applicable): left Size (cm): 14 Description: flap and irregular Depth: simple, single layer Local Anesthetic: lidocaine 1% and with epi Amount of anesthesia used (mL): 5.0 Pre-repair: wound explored and irrigated extensively Skin layer closed with: other (steri strips) Subcutaneous layer closed with: vicryl Size: 4-0 Number of sutures: 4 Technique: simple, interrupted Course 2 Vital Signs: Vital signs: Vital Signs Temperature 98.1 F 07/02/24 14:24 Pulse Rate 66 07/02/24 14:24 Respiratory Rate 16 07/02/24 14:47 Blood Pressure 137/73 07/02/24 14:24 Pulse Oximetry 96 07/02/24 14:24 MDM - Wound/Laceration Medical Decision Making Deeper middle portion of wound I approximated and anchored with vicryl sutures. The edges consisted of very thin skin that probably would not hold stitches. Wound edges were closely approximated and Steri-Stripped. Wound care/infection precautions discussed. Differential Diagnosis Likely laceration, abrasion and avulsion of skin Medical Records I reviewed the patient's medical records. No radiology studies performed this visit Discharge Plan Discharge Patient Disposition: Home Clinical Impression: ISTAP type 2 skin tear of left lower leg Condition: Stable Prescriptions: No Action folic acid 400 mcg tablet 0.8 mg PO BID buspirone 10 mg tablet 10 mg PO BID Qty: 60 11RF aspirin [Adult Low Dose Aspirin] 81 mg tablet,delayed release (DR/EC) 81 mg PO DAILY polyethylene glycol 3350 [Miralax] 17 gram/dose powder 17 g PO DAILY PRN (Reason: CONSTIPATION ) hydroxyzine HCl 10 mg tablet 10 mg PO TID Qty: 90 11RF donepezil [Aricept] 5 mg tablet 5 mg PO DAILY Qty: 30 11RF Rx Instructions: may increase to 10mg daily after a month. mupirocin 2 % ointment 1 applic topical BID 14 Days Qty: 22 1RF mecobalamin (vitamin B12) [B12 Active] 1,000 mcg tablet,chewable 1,000 mcg PO DAILY Qty: 30 11RF hydrocodone-acetaminophen 5-325 mg tablet 1 tab PO QID PRN (Reason: pain) 30 Days Qty: 120 0RF carvedilol 12.5 mg tablet See Rx Instructions .ROUTE .COMPLEX Qty: 270 3RF Dose Instruction: TAKE 1 TABLET BY MOUTH IN THE MORNING AND 2 TABLETS IN THE EVENING Rx Instructions: TAKE 1 TABLET BY MOUTH IN THE MORNING AND 2 TABLETS IN THE EVENING fentanyl 12 mcg/hr patch 72 hour 1 patch transdermal Q72H 30 Days Qty: 10 0RF PreserVision AREDS 2,148 mcg-113 mg-45 mg-17.4mg Tablet 1 tab PO BID Rx Instructions: administer with AM and PM meals Folate 666 Mcg 1 tab PO BID famotidine 20 mg tablet 20 mg PO BID Rx Instructions: TAKE 1 TABLET BY MOUTH TWICE DAILY furosemide 20 mg tablet 20 mg PO BID PRN (Reason: FOR EDEMA) Rx Instructions: TAKE 1 TABLET BY MOUTH BID PRN TAKE WITH POTASSIUM potassium chloride 10 mEq tablet,ER particles/crystals 10 meq PO DAILY Rx Instructions: TAKE 1 TABLET BY MOUTH DAILY Systane Complete 0.6 % Drops 1 drp OPHTHALMIC (EYE) BID PRN (Reason: Dry Eyes) cefdinir 300 mg capsule 300 mg PO BID Qty: 14 0RF Discharge Orders: Discharge ED (Routine); Ordered 07/02/24 Ordered By: Nancy Rivas Referrals: Ezequiel Lynch MD [Primary Care Provider] - Patient Instructions: Skin Tear (ED) Activity Restrictions/Additional Instructions: As we discussed, keep wound clean and monitor for signs of infection such as redness, swelling, drainage. Coding Level of Care Code ED Hospital Admissions Clerk for Rob Chowdary
[2024-07-02 14:47] VITALS: RESP 16
[2024-07-02] MEDS: morphine 4 mg/mL SDV 1 mL IM (14:47)
[2024-07-02 15:20] VITALS: BP 162/74; PULSE 62; O2SAT 96
== END 2024-07-02 15:22 | disposition home or self-care (01) ==
PROVIDERS: Emergency Provider Physician Assistant; PCP Family Medicine
DX: S81.812A Laceration without foreign body, left lower leg, initial encounter (principal); Z79.82 Long term (current) use of aspirin; I11.0 Hypertensive heart disease with heart failure; I50.9 Heart failure, unspecified; X58.XXXA Exposure to other specified factors, initial encounter
CPT/HCPCS: 12005; 96372; 99284; J2270

== ENCOUNTER → 2024-08-14 08:30 | Outpatient (BNVA) | payer MEDICARE, OTHER, SELFPAY | PROVIDERS: PCP Family Medicine; Visit Provider Podiatrist Foot & Ankle Surgery | DX: L84 Corns and callosities (principal); M21.611 Bunion of right foot; M21.612 Bunion of left foot; M20.41 Other hammer toe(s) (acquired), right foot; M20.42 Other hammer toe(s) (acquired), left foot | CPT/HCPCS: 99213 ==

== ENCOUNTER → 2024-08-20 10:02 | Outpatient (BNVA) | payer MEDICARE, OTHER, SELFPAY | PROVIDERS: PCP Family Medicine; Visit Provider Family Medicine | DX: I10 Essential (primary) hypertension (principal); I50.9 Heart failure, unspecified; L98.9 Disorder of the skin and subcutaneous tissue, unspecified | CPT/HCPCS: 80053; 85025 ==

== ENCOUNTER → 2024-10-01 10:36 | Outpatient (BNVA) | payer MEDICARE, OTHER, SELFPAY | PROVIDERS: PCP Family Medicine; Visit Provider Podiatrist Foot & Ankle Surgery | DX: L84 Corns and callosities (principal); M20.41 Other hammer toe(s) (acquired), right foot; M20.42 Other hammer toe(s) (acquired), left foot; M21.611 Bunion of right foot; M21.612 Bunion of left foot | CPT/HCPCS: 99213 ==

== ENCOUNTER → 2024-10-16 13:32 | Outpatient (BNVA) | payer MEDICARE, OTHER, SELFPAY | PROVIDERS: PCP Family Medicine; Visit Provider Family Medicine | DX: R41.0 Disorientation, unspecified (principal) | CPT/HCPCS: 81003; 87086 ==

== ENCOUNTER 2025-01-28 19:45 | Inpatient (IN) | payer MEDICARE, OTHER, SELFPAY ==
[2025-01-28] VITALS (39 sets, daily range): BP systolic 88–178; BP diastolic 59–120; PULSE 101–143; RESP 17–42; TEMP 39.6; O2SAT 85–98; BMI 25.4
--- OUTSIDE RECORDS SUMMARY | 2025-01-28 19:54 | XMS_ITS | Data Portability ---
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 Plan of Treatment Reminders Order Date Submit Date Provider Last Modified By Organization Details Last Modified Time Details Appointments None recorded. Lab None recorded. Referral None recorded. Procedures None recorded. Surgeries None recorded. Imaging US, lower extremity, nonvascular 2016 017 [email or web address] Not available 7 14:34:31 Medication Orders hydrocodone 5 mg-acetamin ophen 325 mg tablet 2016 017 [email or web address] [id number], [address], [place], [place], [id number], 7 03:46:11 Patient TargetsNo targets recorded. Patient Instructions Encounter Date Encounter Id Patient Instructions Last Modified By Organization Details Last Modified Time 08/10/2016 [id number] knee arthritis: care instructions FLORINA Not available 09/11/2016 05:01:59 08/10/2016 [id number] knee arthritis: care instructions FLORINA Not available 09/11/2016 05:01:59 11/10/2016 [id number] knee arthritis: care instructions FLORINA Not available 12/11/2016 05:01:15 Reason for Referral None Reported. Results Created Date Observation Date Name Description Value Unit Range Abnormal Flag Note LastModifiedBy Organization Detail LastModifiedTime Result Notes None recorded. 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 Procedures Surgical History Date Name Laterality Status Provider Name and Address Organization Details Recorded Time 7 Generic Procedure completed Aisha Chin [facility] 08/10/2016 16:40:37 Imaging Results None recorded. Procedure Notes None recorded. Medical Equipment None Reported. Allergies Allergen ID Allergen Name Allergen Category Reaction Reaction Severity Criticality Documentation Date Start Date Code Code System Note Provider Name and Address Organization Details Recorded Time 73710 adhesive tape environme nt,medica tion Not available Not available Not available 06/14/2016 [id number] UNK Omnia Anthony [facility] 6 13:27:12 Medications Name Sig Start Date Stop Date Status Note LastModified by Organization Details LastModified Time fluconazole 100 mg tablet active Not Available Not Available No t Available carvedilol 6.25 mg tablet active Not Available Not Available No t Available hydrocodone 5 mg-acetaminophe n 325 mg tablet Take 1 or 2 tabs PO Q 4-6 PRN Pain active Not Available Not Available No t Available tramadol 50 mg tablet active Not Available Not Available Not Available triamcinolone acetonide 0.1 % topical cream active Not Available Not Availabl e Not Available methotrexate sodium 2.5 mg tablet active Not Available Not Available Not Available temazepam 30 mg capsule active Not Available Not Available Not Available nystatin 100,000 unit/gram topical cream active Not Available Not Availabl e Not Available ranitidine 150 mg tablet active Not Available Not Available No t Available fluorometholone 0.1 % eye drops,suspensio n active Not Available Not Available Not Available hydrochlorothia zide 25 mg tablet active Not Available Not Available Not Available polyethylene glycol 3350 17 gram/dose oral powder active Not Available Not Available Not Available amoxicillin 875 mg-potassium clavulanate 125 mg tablet active Not Available Not Available No t Available neomycin 3.5 mg/g-polymyxin B 10,000 unit/g-dexameth 0.1 % eye oint active Not Available Not Availab le Not Available Xarelto 10 mg tablet Take 1 tablet every day by oral route in the morning for 10 days. 2015 active Not Available Not Available Not Avai lable Eliquis 2.5 mg tablet Take 1 tablet twice a day by oral route with meals for 10 days. active Not Available Not Available No t Available Vitals Date Recorded Body height Body weight Body mass index (BMI) Heart rate Body height Body weight Body mass index (BMI) Heart rate Systolic And Diastolic Systolic And Diastolic Provider Name and Address Organization Details Last Updated DateTime 162.56 cm 13571.5 g 11.2 kg/m2 64 /min 162.56 cm 83150.0 7 g 29.9 kg/m2 64 /min 110/70 mm[Hg] 110/70 mm[Hg] Jaswant Valentin [facility] 7 14:33:54 Date Recorded Body height Body weight Body mass index (BMI) Heart rate Systolic And Diastolic Provider Name and Address Organization Details Last Updated DateTime 11/10/2016 162.56 cm 52495.74 g 28.3 kg/m2 74 /min 128/83 mm[Hg] Jessica Garcia [employer] 11/10/2016 14:47:39 Social History Question Answer Notes LastModified by Organizat ion Details LastModified Time Tobacco Smoking Status Never Smoker Jaswant Valentin [facility] [employer] 08/10/2016 14:28:57 General Stress Level Low [email or web address] Information not available 08/10/2016 Sex: Unknown Functional Status Question Answer Note LastModified by Organization D etails LastModified Time What is your occupation? retired [email or web address] Information not available 08/10/2016 Mental Status None recorded. Family History Relationship Description Onset Age of this Age Resolved Age Notes LastModified by Organization Details LastModified Time Father No current problems or disability [email or web address] Not available 08/10 14:28:49 Mother No current problems or disability [email or web address] Not available 08/10 14:28:49 Medical History Condition Response HIV or AIDS N Coronary Artery Disease N Gout N Kidney Stones N Hyperthyroidism N Hernia N Head Trauma/Injury N Hypothyroidism N Lung Disease N Blood Clots N COPD N Depression N Pacemaker N Anxiety Disorder N Arthritis Y Cancer N Stroke N Leg or Foot Ulcers N Neck Injury N High Cholesterol N Liver Disease N Rheumatoid Arthritis N Fibromyalgia N Headaches N Kidney Disease N Heart Problems N Migraines N Thyroid Problems N Anemia N Multiple Sclerosis N Ulcers N Heart Attack ([place]) N Diabetes N Bleeding Disorder N Seizures/Epilepsy N Tuberculosis N Urinary Tract Infection N Back Problems N Diverticulitis N Asthma N Lupus N Peripheral Vascular Disease N Sleep Disorder N GERD/Reflux N Hepatitis N Aneurysm N Heart Disease N Pulmonary Embolism N Hypertension N Osteoporosis N Gynecological HistoryNo gynecological history recorded. Obstetrics History GPAL:G 0 P 0 0 0 0 Past Encounters Encounter ID Performer Location Encounter Start Date Encounter Closed Date Diagnosis/Indication Diagnosis SNOMED-CT Code Diagnosis ICD10 Code Diagnosis Note [id number] Aisha Chin MD [facility] [address] [place] [address] 08/10/2016 13:04:48 08/11/2016 09:21:04 Osteoarthritis of knee 928110318 M17.0 [id number] Aisha Chin MD [facility] [address] [place] [address] 08/10/2016 13:56:26 08/11/2016 09:20:32 Osteoarthritis of knee 000890793 M17.0 [id number] Aisha Chin MD [facility] [address] [facility] [address] [facility] [place] [address] 11/10/2016 13:34:37 11/10/2016 17:31:47 Osteoarthritis of knee 625708563 M17.0 Health Concerns Section Related Observation LastModified by Organization Detai ls LastModified Time None Recorded Concern Status LastModified by Organization Details LastModified Time None Recorded Advance Directives Directive None Recorded Payers Insurance Date Sequence Insurance Name Policy Number Policy Sun Covered Member ID Sun Member ID Guarantor Name 01/15/2017 1 [place] Amberly Melgar Young [id number] Amberly Lopez Young 01/16/2017 2 [employer] [place] [employer] [place] (MEDICARE SUPPLEMENT) Amberly Melgar Young [id number] Amberly Lopez Young Notes Date Note Type Note Provider Name and Address Organization Details Recorded Time 08/10/2016 text/html See Dictated NoteReported bypatient.Notes:SE E DICTATED NOTES NAOMIE Lott [facility], [facility] 08/10/2016 16:40:49 08/10/2016 text/html See Dictated NoteReported bypatient.Notes:SE E DICTATED NOTES Not Available [employer] 08/15/2016 08:31:33 11/10/2016 text/html no sig change since pretx levels NAOMIE Lott [facility], [facility] 11/10/2016 15:35:57 OBGyn Episode No OBEpisode recorded.
--- OUTSIDE RECORDS SUMMARY | 2025-01-28 19:54 | XMS_ITS | Patient Health Record ---
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 Name Role Phone Ezequiel Lynch MD Primary Care Provider Unavail able Corey PELLETIER, Angelito Unavailable [phone] Clive Melissa DO Unavailable Unavailable Allergies Allergen (clinical drug ingredient) Drug/Non Drug Allergy documented on EMR Reaction Allergy Type Onset Date Status tape (uncoded) Unknown Allergy Activ e Reason For Referral No Information Medications Medication SIG (Take, Route, Frequency, Duration) Notes Start Date End Date Status MiraLax (obsolete) A ctive Rittman 325 mg-5 mg 1 tab orally every 1 2 hours, as needed for pain Active methotrexate 2.5 mg 4 tabs orally once a week Active meloxicam 15 mg 1 tab orally once a day Active raNITIdine 150 mg 1 tab orally 2 times a day Active temazepam 30 mg 1 cap orally 3 times a day, as needed (at bedtime) Active fluorometholone ophthalmic 0.1% 1 gtt in each affected eye as directed Active triamcinolone topical 0.1% 1 serenity applied topically 3 times a day Active Cameron Low Dose 81 mg 1 tab orally once a day Active Systane Ultra preserved 1 gtt in each ey e 2 times a day Active carvedilol 6.25 mg 1 tab orally 2 times a day Active folic acid 1 mg 2 tabs orally once a day Active Social History Tobacco Use: Social History Observation Description Date Details (start date - stop date) Never Smoker NA - NA alcohol Question Answer Notes Did you have a drink containing alcohol in the p ast year? No Points 0 Interpretation Negative Tobacco use: Question Answer Notes : nonsmoker Problems Problem Type SNOMED Code ICD Code Onset Dates Problem Status W/U Status Risk Notes Problem Solitary sacroiliitis (047367190) Sacroiliitis, not elsewhere classified (M46.1) Active confirmed Problem Low back pain (491894519) Low back pain (M54.5) Active confirmed Problem Lumbosacral spondylosis without myelopathy (10727172) Spondylosis without myelopathy or radiculopathy, lumbar region (M47.816) Active confirmed Problem Anxiety disorder (640530394) Other specified anxiety disorders (F41.8) Active confirmed Problem Sleep disorder (13391180) Other sleep disorders (G47.8) Active confirmed Problem Spinal stenosis of lumbar region (58858264) Spinal stenosis, lumbar region (M48.06) Active confirmed Problem Radiculopathy due to lumbar intervertebral disc disorder (372486431640624) Intervertebral disc disorders with radiculopathy, lumbar region (M51.16) Active confirmed Problem Disorder of lumbar disc (699588519) Other intervertebral disc disorders, lumbar region (M51.86) Active confirmed Problem Post-laminectomy syndrome (17818997) Postlaminectomy syndrome, not elsewhere classified (M96.1) Active confirmed Problem Long-term current use of drug therapy (063377484) Other assisted (current) drug therapy (Z79.899) Active confirmed Plan Of Treatment No Information Insurance Providers Payer Name Payer Address Payer Phone Subscriber Number Group Number Insured Name Patient Relationship to Insured Coverage Start Date Coverage End Date [employer] Part B Claims Department [address] [address] [place] [address] [id number] Hector Amberly Self - patient is the insured [facility] Attn Claims Dept [address] [place] [id number] Young Amberly Self - patient is the insured Medical (General) History Medical History History ICD Code Low back pain Lumbar disc herniation Hypertension Rheumatoid arthritis Leaking of mitral valve Left SI joint pain Surgical History Surgery Date(Month/Year) ELIJAH Hemithyroidectomy, 1953 Appendectomy, 1974 Laparocopic cholecystectomy, 1998 Cataract surgeries, 2004 Posterior lumbar interbody f usion / lumbar laminectomy with fusion, performed by Dr. Izquierdo, 06/25/13 Hospitalization History Reason Date(Month/Year) Blood clot in leg after 06/16 surgery, patient was hospitalized for 4 days, 07/04/13
--- OUTSIDE RECORDS SUMMARY | 2025-01-28 19:54 | XMS_ITS | Data Portability ---
Author Organization NAOMIE Ernst [facility], .[facility], [facility] Address [address] [place] [address] Assessment Encounter Date Assessment Date Assessment LastModified by Organization Details LastModified Time 12/21/2023 12/21/2023 After detailed discussion on diagnosis and treatment options, pt expressed verbal desire to proceed today with procedure and expressed verbal understanding of options, risks, procedure, and expectations. Son and DIL present today and agree with b/l knee injections today and right SI joint injection today here in the office. performed as above. Pt tolerated the procedure well. Aftercare instructions with expectations and precautions were discussed. pt can return in 3-4 mts for re-eval and consideration of repeat injections. Not available 12/21/2023 18:52:19 03/26/2024 03/26/2024 Document scribed by Mildred Thackeribe. I was present during interview and exam. I have reviewed and agree with above documentation. Dr. Osorio Melissa. [email or web address] Not available 03/26/2024 13:00:50 07/24/2024 07/24/2024 Document scribed by Flako Dangelo Personal Financial Advisor. I was present during interview and exam. I have reviewed and agree with above documentation. Dr. Osorio Melissa. A Care Coordination Assessment form was filled out as part of this patient's office visit today. [email or web address] Not available 07/24/2024 13:00:07 10/23/2024 10/23/2024 Document scribed by Mildred Thacker Scribe. I was present during interview and exam. I have reviewed and agree with above documentation. Dr. Osorio Melissa. [email or web address] Not available 10/23/2024 12:20:11 Plan of Treatment Reminders Order Date Submit Date Provider Last Modified By Organization Details Last Modified Time Details Appointments RECHECK 10 2024 02:00P M Osorio Melissa, DO Not available Not available Not available Lab None recorded. Referral None recorded. Procedures arthrocen tesis, aspiratio n and/or injection , major joint or bursa (PROC) [address] [place] [address], [address], [address], [place], [address], 10/24/2024 12:59:09 arthrocen tesis, aspiratio n and/or injection , major joint or bursa (PROC) [address] [place] [address], [address], [address], [place], [address], 10/24/2024 12:59:27 injection /aspirati on joint/bur sa (PROC) [address] [place] [address], [address], [address], [place], [address], 10/24/2024 12:59:47 arthrocen tesis, aspiratio n and/or injection , major joint or bursa (PROC) [address] [place] [address], [address], [address], [place], [address], 07/29/2024 10:09:56 arthrocen tesis, aspiratio n and/or injection , major joint or bursa (PROC) [address] [place] [address], [address], [address], [place], [address], 07/29/2024 10:10:20 injection /aspirati on joint/bur sa (PROC) 2024 025 [email or web address] [facility], [address] [facility] [address], [place], [address], 07/29/2024 10:10:41 Surgeries None recorded. Imaging None recorded. Medication Orders Kenalog 40 mg/mL suspensio n for injection 2024 025 Not available 01/22/2025 12:06:03 Kenalog 40 mg/mL suspensio n for injection 2024 025 [email or web address] Not available 01/22/2025 12:06:03 Kenalog 40 mg/mL suspensio n for injection 2024 025 [email or web address] Not available 01/22/2025 12:06:03 Kenalog 40 mg/mL suspensio n for injection 2024 025 Not available 01/22/2025 12:06:03 Kenalog 40 mg/mL suspensio n for injection 2024 025 Not available 01/22/2025 12:06:03 Kenalog 40 mg/mL suspensio n for injection 2024 025 [email or web address] Not available 01/22/2025 12:06:03 Patient TargetsNo targets recorded. Patient InstructionsNo instructions recorded. Reason for Referral None Reported. Problems Name Problem SNOMED Code Status Onset Date Resolution Date Notes Provider Name and Address Organization Details Recorded Time Gastroesoph ageal reflux disease without esophagitis 504795041 Active [address] [facility], LCorrieLAnne-Marie 5 12:12:06 Essential hypertensio n 21367591 Active [address] [facility], LCorrieLAnne-Marie 5 12:12:06 Bilateral lower leg edema 177051574 Active [address] [facility] 12:12:06 Osteoarthri tis 949263221 Active 2023 Lindakenton Wang [facility], L.L.CCorrie 5 12:12:06 Bilateral osteoarthri tis of knees 9785258081235 07 Active 2023 Lindamarcelino [address] [facility], LCorrieLAnne-Marie 5 12:12:06 Pain in right sacroiliac joint 8789893966719 9107 Active 2023 Linda Wang [facility], L.L.CCorrie 5 12:12:06 Dementia 85421894 Active 2024 Flako Baptistematt [facility], LCorrieL.CCorrie 5 12:35:07 Problem Notes None recorded. Procedures Surgical History Date Name Laterality Status Provider Name and Address Organization Details Recorded Time 01/22/2025 Joint Inj Kenalog- Shoulder, Hip, Knee active Flako [facility] 01/22/2025 12:22:45 10/23/2024 Joint Inj Kenalog- Shoulder, Hip, Knee completed [facility] 10/23/2024 12:17:10 07/24/2024 Joint Inj Kenalog- Shoulder, Hip, Knee completed Flako [facility] 07/24/2024 13:01:43 03/26/2024 Joint Inj Kenalog- Shoulder, Hip, Knee completed Flako [facility] 03/26/2024 13:02:51 12/21/2023 Joint Inj Kenalog- Shoulder, Hip, Knee completed Osorio Melissa DO [address] [place] [address], [phone], [facility], L.L.CCorrie 12/21/2023 18:50:05 Imaging Results None recorded. Procedure Notes None recorded. Medical Equipment None Reported. Allergies Allergen ID Allergen Name Allergen Category Reaction Reaction Severity Criticality Documentation Date Start Date Code Code System Note Provider Name and Address Organization Details Recorded Time 76277 Product containin g penicilli n (product) medicatio n Not available Not available Not available 12/21/2023 05482 8001 SNOMED child duran react ion unkno wn [facility] 4 12:53:56 Medications Name Sig Start Date Stop Date Status Note LastModified by Organization Details LastModified Time quetiapin e 25 mg tablet Take 1 tablet twice a day by oral route. active Not Available Not Available No t Available fluoxetin e 40 mg capsule 12/20 completed Not Available Not Available Not Available Miralax 17 gram/dose oral powder Take 17 g every day by oral route. active Not Available Not Available No t Available fentanyl 50 mcg/hr transderm al patch Apply 1 patch every 72 hours by transder mal route. active Not Available Not Available No t Available carvedilo l 12.5 mg tablet Take 1 tablet twice a day by oral route for 90 days. active Not Available Not Available No t Available donepezil 5 mg tablet 10/23 completed Not Available Not Available Not Available hydrocodo ne 5 mg-acetam inophen 325 mg tablet 2024 active bid Not Available Not Available Not Avai lable donepezil 10 mg tablet 10/23 completed Not Available Not Available Not Available Medrol (David) 4 mg tablets in a dose pack 12/20 completed Take as directed on package; Recorded 01/07/20 12 1:46PM by Jerome Morgan PA-C, Office Visit; Refill Quantity : 0; Tab; Not Available Not Available Not Available olanzapin e 5 mg tablet Take 1 tablet twice a day by oral route. active Not Available Not Available No t Available clindamyc in HCl 150 mg capsule Take 1 capsule 3 times a day by oral route for 7 days. 03/26 completed Not Available Not Available Not Available ciproflox acin 250 mg tablet 12/20 completed Not Available Not Available Not Available aspirin 81 mg tablet,de layed release Take 1 tablet every day by oral route. active Not Available Not Available No t Available Kenalog 40 mg/mL suspensio n for injection Take 20 mg by injectio n route. 2024 active Not Available Not Available Not Avai lable famotidin e 20 mg tablet Take 1 tablet every day by oral route for 90 days. active Not Available Not Available No t Available methotrex ate sodium 2.5 mg tablet 12/20 completed Not Available Not Available Not Available buspirone 10 mg tablet Take 1 tablet twice a day by oral route for 28 days. active Not Available Not Available No t Available metoprolo l tartrate 50 mg tablet two times daily 12/20 completed 1 in a.m., 2 in p.m.; 0; Recorded 01/07/20 12 1:28PM by Traci Velazco LPN, Office Visit; Not Available Not Available Not Available mupirocin 2 % topical ointment 10/23 completed Not Available Not Available Not Available furosemid e 20 mg tablet TAKE 1 TABLET BY MOUTH EVERY DAY active Not Available Not Available No t Available hydroxyzi ne HCl 10 mg tablet Take 1 tablet 3 times a day by oral route for 28 days. active Not Available Not Available No t Available fluoxetin e 20 mg capsule Take 1 capsule every day by oral route for 30 days. 12/20 completed Not Available Not Available Not Available amoxicill in 500 mg-potass ium clavulana te 125 mg tablet 12/20 completed Not Available Not Available Not Available Systane (propylen e glycol) 0.4 %-0.3 % eye drops active Not Available Not Available Not Available potassium chloride ER 10 mEq tablet,ex tended release(p art/cryst ) Take 1 tablet every day by oral route for 90 days. active Not Available Not Available No t Available fentanyl 12 mcg/hr transderm al patch Apply 1 patch every 72 hours by transder m. route for 15 days. 10/23 completed Not Available Not Available Not Available meloxicam daily 12/20 completed 0; Recorded 01/07/20 12 1:26PM by Traci Velazco LPN, Office Visit; Not Available Not Available Not Available furosemid e daily 12/20 completed 0; Recorded 01/07/20 12 1:27PM by Traci Velazco LPN, Office Visit; Not Available Not Available Not Available lisinopri l two times daily 12/20 completed 0; Recorded 01/07/20 12 1:28PM by Traci Velazco LPN, Office Visit; Not Available Not Available Not Available Klor-Con daily 12/20 completed 0; Recorded 01/07/20 12 1:27PM by Traci Velazco LPN, Office Visit; Not Available Not Available Not Available cyanocoba ruthie (B12)-cob amamide 5,000 mcg-100 mcg sublingua l tablet Place 1 tablet every day by sublingu al route. active Not Available Not Available No t Available ICaps AREDS one daily active Not Available Not Available No t Available Vitals Date Recorded Body height Body mass index (BMI) Body weight Oxygen saturation Oxygen saturation in Arterial blood by Pulse oximetry Heart rate Respiratory rate Systolic And Diastolic Provider Name and Address Organization Details Last Updated DateTime 5 157.48 cm 29.1 kg/m2 68249.2 9 g 97 % 97 % 58 /min 18 /min 116/70 mm[Hg] [facility] 5 12:40:28 Date Recorded Body height Body mass index (BMI) Body weight Oxygen saturation Oxygen saturation in Arterial blood by Pulse oximetry Heart rate Respiratory rate Systolic And Diastolic Provider Name and Address Organization Details Last Updated DateTime 5 157.48 cm 27.1 kg/m2 21586.3 7 g 99 % 99 % 64 /min 18 /min 120/80 mm[Hg] [facility] 5 12:00:58 Date Recorded Body weight Body mass index (BMI) Body height Heart rate Respiratory rate Oxygen saturation Oxygen saturation in Arterial blood by Pulse oximetry Systolic And Diastolic Provider Name and Address Organization Details Last Updated DateTime 4 15331.6 6 g 29.9 kg/m2 157.48 cm 54 /min 18 /min 97 % 97 % 134/90 mm[Hg] [facility] 4 12:47:35 Date Recorded Body height Body mass index (BMI) Body weight Oxygen saturation Oxygen saturation in Arterial blood by Pulse oximetry Heart rate Respiratory rate Systolic And Diastolic Provider Name and Address Organization Details Last Updated DateTime 5 157.48 cm 27.8 kg/m2 12457.4 4 g 99 % 99 % 66 /min 18 /min 120/80 mm[Hg] Linda Wang [facility] 5 12:13:15 Date Recorded Body height Body mass index (BMI) Body weight Oxygen saturation Oxygen saturation in Arterial blood by Pulse oximetry Heart rate Respiratory rate Systolic And Diastolic Provider Name and Address Organization Details Last Updated DateTime 4 157.48 cm 30.7 kg/m2 27415.5 2 g 98 % 98 % 62 /min 18 /min 142/94 mm[Hg] JANA SHAW [facility] 4 12:36:11 Social History None recorded. Functional Status None recorded. Mental Status None recorded. Family History Relationship Description Onset Age of this Age Resolved Age Notes LastModified by Organization Details LastModified Time Father No current problems or disability Not available 10/23 11:58:05 Mother No current problems or disability [email or web address] Not available 10/23 11:58:05 Medical History Condition Response Coronary Artery Disease N Other N Gout N Kidney Stones N Blood Diseases N Hyperthyroidism N Breast Cancer N Blood Transfusion N Depression Y Hypothyroidism N Lung Disease N COPD N Developmental or Behavioral Disorders N Defects or Inherited Disease N Breast Problem N Difficulty Swallowing N Anesthesia Complications N Anxiety Disorder Y Meniere's disease N Muscle, Joint, or Bone Problems N Vision or Eye Problems N Arthritis Y Infertility N Polyps N Cancer N Stroke N Varicosities N Endometriosis N Bladder or Kidney Problems N High Cholesterol N Liver Disease N Fibromyalgia N Headaches Y Kidney Disease N Allergies/Hayfever N Heart Problems Y Ear or Hearing Problems Y Hospitalizations N Thyroid Problems Y GI Problems N ADD/ADHD N Skin Problems Y Eating Disorder N Anemia N Constipation Y Mental Illness N Ovarian Cancer N Diabetes N Bedwetting N Seizures/Epilepsy N Tuberculosis N Eczema N Diverticulitis N Abuse/Domestic Violence N Asthma N Reflux/GERD N Hepatitis N Heart Disease N Pulmonary Embolism N Pre-Eclampsia N Hypertension N Chronic Ear Infections N Osteoporosis N Chicken Pox Y Autism Spectrum Disorder (ASD) N Thrombophilias N Gynecological HistoryNo gynecological history recorded. Obstetrics History GPAL:G 0 P 0 0 0 0 Immunizations Vaccine Type Date Status Note Provider Nam e and Address Organization Details Recorded Time zoster recombinant [address] [facility] 12/21/2023 12:45:39 zoster recombinant [address] [facility] 12/21/2023 12:45:39 Influenza, high-dose, quadrivalent, PF [address] [facility] 12/21/2023 12:45:39 COVID-19, mRNA, LNP-S, PF, 30 mcg/0.3 mL dose [address] [facility] 12/21/2023 12:45:39 COVID-19, mRNA, LNP-S, PF, 30 mcg/0.3 mL dose 1 completed Linda Wang olga lidia [facility] 12/21/2023 12:45:39 COVID-19, mRNA, LNP-S, PF, 30 mcg/0.3 mL dose [address] [facility] 12/21/2023 12:45:39 Influenza, split virus, quadrivalent, PF 2 completed [facility] 12/21/2023 12:45:39 Influenza, adjuvanted, trivalent, PF 4 completed Not Available [facility] 01/22/2025 11:59:21 Past Encounters Encounter ID Performer Location Encounter Start Date Encounter Closed Date Diagnosis/Indication Diagnosis SNOMED-CT Code Diagnosis ICD10 Code Diagnosis Note [id number] Osorio Melissa DO [facility] ([facility]) [address] [place] [address] 12/21/2023 11:59:15 12/21/2023 13:37:02 Gastroesophageal reflux disease without esophagitis 735616781 K21.9 Essential hypertension 69766313 I10 Bilateral lower leg edema 137791005 R60.0 Osteoarthritis 045475607 M19.90 Bilateral osteoarthritis of knees 0589642815 92013 M17.0 Pain in ri ght sacroiliac joint 1930630711 3021279 M53.3 [id number] Osorio Melissa DO [facility] ([facility]) [address] [place] [address] 03/26/2024 11:58:41 03/26/2024 13:08:29 Bilateral osteoarthritis of knees 7259604385 95603 M17.0 03/26/24- Pt tolerated b/l knee injections . Pain in ri ght sacroiliac joint 1652851600 9704610 M53.3 03/26/24- R SI injected, pt tolerated well. Counseled continue Hydrocodon e, PCP may consider increasing Fentanyl patch if pain worsening. [id number] Osorio Melissa DO [facility] ([facility]) [address] [place] [phone] 07/24/2024 12:19:57 07/25/2024 09:43:28 Bilateral osteoarthritis of knees 9438553250 87796 M17.0 03/26/24- Pt tolerated b/l knee injections . Essential hypertension 90673080 I10 stable on current meds. Wound of skin 847416078 T14.8XXA BLE, seeing Dr. Lynch for these. Pain in ri ght sacroiliac joint 2697595009 6997480 M53.3 03/26/24- R SI injected, pt tolerated well. Counseled continue Hydrocodon e, PCP may consider increasing Fentanyl patch if pain worsening. [id number] Osorio Melissa DO [facility] ([facility]) [address] [place] [phone] 10/23/2024 11:48:03 11/21/2024 07:39:05 Bilateral osteoarthritis of knees 3628839576 60786 M17.0 10/23/24: Patient tolerated injection, 40mg Kenalog with Lidocaine to each knee. Patient will monitor site for signs of infection and report any adverse side effects.05/09- Pt tolerated b/l knee injections . Pain in ri ght sacroiliac joint 3479196198 4744448 M53.3 10/23/24 Patient tolerated injection, 20mg Kenalog with Lidocaine. Patient will monitor site for signs of infection and report any adverse side effects.05/09- R SI injected, pt tolerated well. Counseled continue Hydrocodon e, PCP may consider increasing Fentanyl patch if pain worsening. [id number] Osorio Melissa DO [facility] ([facility]) [address] [place] [address] 01/22/2025 11:58:43 01/22/2025 12:35:34 Bilateral osteoarthritis of knees 1889361172 01134 M17.0 01/22/25: Patient tolerated injection. Patient will monitor site for signs of infection and report any adverse side effects.10/23/24: Patient tolerated injection, 40mg Kenalog with Lidocaine to each knee. Patient will monitor site for signs of infection and report any adverse side effects.05/09- Pt tolerated b/l knee injections . Pain in ri ght sacroiliac joint 2410704372 6646740 M53.3 01/22/25: Patient tolerated injection. Patient will monitor site for signs of infection and report any adverse side effects.10/23/24 Patient tolerated injection, 20mg Kenalog with Lidocaine. Patient will monitor site for signs of infection and report any adverse side effects.05/09- R SI injected, pt tolerated well. Counseled continue Hydrocodon e, PCP may consider increasing Fentanyl patch if pain worsening. Dementia 30274314 F03.90 01/22/25: Worsening, continues care with Dr. Lynch. Will continue to evaluate continued need for injections based on her symptoms, we may decrease frequency of her injections . Health Concerns Section Related Observation LastModified by Organization Detai ls LastModified Time None Recorded Concern Status LastModified by Organization Details LastModified Time None Recorded Advance Directives Directive None Recorded Payers Insurance Date Sequence Insurance Name Policy Number Policy Sun Covered Member ID Sun Member ID Guarantor Name 01/22/2025 1 [place] Amberly G Young [id number] Amberly Melgar Young 01/22/2025 [place] - [place] A - [facility]MEDICARE) Amberly Melgar Young [id number] Amberly eMlgar Young 01/22/2025 2 [employer] (MEDICARE SUPPLEMENT) Amberly Melgar Young [id number] Amberly Melgar Young Notes Date Note Type Note Provider Name and Address Organization Details Recorded Time 12/21/2023 text/html pt presents for diamante knee injections and back pain rates pain at 8 on scale reports DUMONT's 1-2 a week, tylenol helps. pt is resident of [facility] in [place] her PCP is Dr. Lynch. She has a PMH of HTN, Chronic BLE edema, Gerd, and chronic pain from severe OA. She also has what appears to be moderate to severe dementia. Pt and family report they can not get joint injections from PCP or elsewhere locally and are asking if I can do this for them. Dr. Clive Melissa, Ortho in [place], called and is requesting we get pt in for q 3 mt appts for b/l Knee and right SI joint injections. Pt has dementia and is accompanied by either Son or DIL. Amberly has been a pt of [facility] for a few years. Dr. Tirso Melissa reports DIL called our office this week to schedule appt at Dr. Ariana Melissa's request, but front end developer designer would not talk to DIL, and only offered ELECTROSTATIC PAINTER appt 4 mts from now. Pt was seen by Dr. Clive Melissa 09/19/23 and received Synvisc injections in B/L knees and right SI joint injection. Osorio Melissa, DO [address] [place] [address], [phone], [facility] 12/21/2023 18:52:47 03/26/2024 text/html Joint PainReport ed bypatient.Location :bilateral knee Quality:sharp Severity:improving (with injection) Duration:present for >12 months Timing:intermitten t Pt presents for 4 month recheck, b/l knee pain, R SI pain. She c/o pain to both knees, L>R, feels her prior injection didn't last as long this time, last injection in December 2023. Also with R SI pain again, also last injection December 2023.She recently started to fall, caught herself on her walker, resulting in leg lac, now healed and she has started wearing her compression stocking again. Taking Hydrocodone twice daily, increased to taking a 3rd dose in the middle of the day on occasion.Continues Fentanyl patch at 12mcg. Family recalls seeing Dr. Clive Melissa at the 3 month sandra between joint injections and she received a Rooster Comb injection, which helped significantly. Osorio Melissa, [address] [place] [address], [phone], [facility], LCorrieLCorrieC. 03/29/2024 16:13:17 07/24/2024 text/html Pt presents for bilateral knee pain. Requesting injections in both knees and her R SI. We last injected these 12/21/23.She rates her pain at 8/10, worse with movement. Taking Hydrocodone and Tylenol through the day for pain. Also using Fentanyl patch. Recently hospitalized with Covtoma in Jun 2024, now improved. She has sores on BLE, one leg she hit on w/c on day of hospital d/c, repaired with sutures. Skin tear to other extremity that is having trouble healing, repaired with steri strips.Seeing Dr. Lynch for these wounds. Osorio Melissa, [address] [place] [address], [phone], [facility], L.LCorrieC. 07/25/2024 16:20:55 10/23/2024 text/html Pt presents for recheck 3 months, knee and back pain. We last injected both knees and the right SI with Kenalog on 07/24/24. Pt is having some increased confusion today. She saw Dr. Lynch this am, Donepezil changed to Zyprexa. no new c/o Osorio Melissa, [address] [place] [address], [phone], [facility], L.LCorrieC. 11/19/2024 23:43:45 OBGyn Episode No OBEpisode recorded.
--- NOTE | 2025-01-28 20:15 | ECG_ITS ---
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 Measurements Intervals [place] Rate: 115 P: 58 [place]: 173 QRS: -27 QRSD: 89 T: 96 QT: 286 QTc: 396 Interpretive Statements SINUS TACHYCARDIA LEFT ATRIAL ENLARGEMENT [-0.15mV P-WAVE IN V1/V2] BORDERLINE LEFT AXIS DEVIATION [QRS AXIS < -20] NONSPECIFIC ST & T-WAVE ABNORMALITY Compared to ECG 07/01/2024 11:58:35 Atrial abnormality now present T-wave abnormality now present Sinus rhythm no longer present Baseline artifacts, need to repeat Myocardial infarct finding no longer present Electronically Signed On 01-29-2025 16:51:32 CDT by Calixto Jones M.D. [email or web address]
--- NOTE | 2025-01-28 20:15 | CTR_ITS ---
PROCEDURE INFORMATION: Exam: CT Head Without Contrast Exam date and time: 01/28/2025 8:38 PM Age: 89 years old Clinical indication: Altered mental status/memory loss; Confusion or disorientation; Additional info: AMS TECHNIQUE: Imaging protocol: Computed tomography of the head without contrast. Radiation optimization: All CT scans at this facility use at least one of these dose optimization techniques: automated exposure control; mA and/or kV adjustment per patient size (includes targeted exams where dose is matched to clinical indication); or iterative reconstruction. COMPARISON: CT head wo con* [id number] 07/01/2024 2:02 PM RADIATION DOSE METRICS: Total DLP (mGy-cm): 1156.1 FINDINGS: Brain: Moderate diffuse white matter disease likely reflecting chronic microvascular ischemic changes. Bilateral punctate benign basal ganglia calcifications. Cerebral ventricles: No ventriculomegaly. Paranasal sinuses: Visualized sinuses are unremarkable. No fluid levels. Mastoid air cells: Visualized mastoid air cells are well aerated. Bones: Unremarkable. No acute fracture. Soft tissues: Unremarkable. CT/CT head wo con* [id number] IMPRESSION: 1. Negative for intracranial hemorrhage or mass effect. 2. Moderate diffuse white matter disease likely reflecting chronic microvascular ischemic changes. 3. Bilateral punctate benign basal ganglia calcifications.
--- NOTE | 2025-01-28 20:15 | XRR_ITS ---
PROCEDURE INFORMATION: Exam: XR Chest Exam date and time: 01/28/2025 8:17 PM Age: 89 years old Clinical indication: Other: AMS; Additional info: Possible sepsis TECHNIQUE: Imaging protocol: Radiologic exam of the chest. Views: 1 view. COMPARISON: CR XR chest 1V portable [id number] 07/01/2024 12:02 PM FINDINGS: Lungs: Mild emphysematous changes. Pleural spaces: Unremarkable. No pleural effusion. No pneumothorax. Heart/Mediastinum: Cardiomegaly. Bones/joints: Unremarkable. XR/XR chest 1V portable [id number] IMPRESSION: 1. Negative for infiltrate. 2. Cardiomegaly. 3. Mild emphysematous changes.
[2025-01-28 20:44] LABS: Hematocrit 41.7 % (36-47); Hemoglobin 14.00 g/dL (11.27-16.99); Mean Corpuscular HGB Conc 33.6 g/dL (30-55); Mean Corpuscular Hemoglobin 29.5 pg (27-33); Mean Corpuscular Volume 88.0 fl (85-98); Platelet Count 132 10^3/cmm (157-399); Red Blood Count 4.74 10^6/uL (3.85-5.65); White Blood Count 7.99 10^3/uL (3.29-11.43)
[2025-01-28] MEDS: acetaminophen 1,000 MG/100 ML PIGGYBACK 400 MG IV (20:49)
[2025-01-28 21:01] LABS: Alanine Aminotransferase 9 U/L (0-33); Albumin Level 4.1 g/dL (3.5-5.2); Alkaline Phosphatase 138 U/L (35-105); Aspartate Amino Transferase 13 U/L (0-32); Blood Urea Nitrogen 13 mg/dL (8-23); Calcium 9.3 mg/dL (8.5-10.5); Carbon Dioxide 23 mmol/L (22-29); Chloride 96 mmol/L (98-107); Creatinine Clr Calc Pharmacy 46.6314; Globulin 2.8 g/dL (1.3-4.6); Glucose 116 mg/dL (65-115); Osmolality Calculated 281 mOsm/kg (285-295); Sodium 135 mmol/L (136-145); Total Protein 6.9 g/dL (6.6-8.7)
[2025-01-28 21:02] LABS: Lactic Sepsis W/Reflex 3.8 mmol/L (0.5-2.2)
[2025-01-28 21:05] LABS: Anion Gap 19.9 (5-19); Potassium 3.9 mmol/L (3.5-5.1)
[2025-01-28 21:08] LABS: Procalcitonin 4.88 ng/mL (0-0.5)
[2025-01-28 21:20] LABS: Slide Review Slide Review Perform
[2025-01-28 21:21] LABS: Absolute Segmented Neutrophil 7.1 10/cmm (1.6-7.1); Total Cells Counted 100 (0-100)
[2025-01-28 21:23] LABS: Glucose Urine UA Negative (Normal); Nitrate Urine Positive (Negative); Specific Gravity, Urine 1.010 (1.005-1.030)
[2025-01-28 21:28] LABS: Add Urine Microscopic? YES
[2025-01-28] MEDS: cefTRIAXone 1,000 mg SDV 1000 MG IVP (22:15)
[2025-01-28 22:17] LABS: ABG PCO2 30.2 mmHg (35-45); ABG PH Result 7.42 (7.35-7.45); Alveolar-Arterial Oxygen Gradi 14.9 mmHg (5-10); Arterial Blood Gas Hematocrit 38.7 % (37-47); Blood Gas Allen Test Pos; Blood Gas LPM 3.0 %; Blood Gas Operator Identificat gerca; Blood Gas Sample Site Radial, left; Blood Gas Sample Type Arterial; Carboxyhemoglobin 1.1 %THgb (0.4-20.1); Glucose Level-ABG 124.0 mg/dL (70-115); HCO3 ABG 19.8 mmol/L (22-26); Ionized Calcium Level - ABG 1.1 mmol/L (1.1-1.4); Methemoglobin 0.8 % (0.4-1.5); Oxygen Saturation ABG 96.3; PO2 ABG 73.8 mmHg (80.0-100.0); PO2 FiO2 Ratio Arterial Blood 230; Potassium Level - ABG 3.1 mmol/L (3.5-5.0); Sodium Level - ABG 136.0 mmol/L (131-143)
[2025-01-28 22:27] LABS: Reflex Lactate Order REFLEX LACTIC ORDERD
--- NOTE | 2025-01-28 22:33 | W.ED.AMS ---
HPI - Altered Mental Status General: Chief Complaint: Altered Mental Status Stated Complaint: AMS Time Seen by Provider: 01/28/25 19:58 History of Present Illness: Patient with baseline dementia was reportedly well at 14:00 but became acutely febrile (103.2 ?F orally, earlier 104.5 ?F), tachycardic, hypertensive, and more confused than usual. Caregivers note new ?gurgly? breath sounds, occasional retching, no documented cough, and chronic lower-extremity edema with a heel sore currently wrapped. She is normally on room air but now requires supplementalO2 to to remain 93% saturated. No recent falls or head trauma reported; no history of anticoagulation. [id number] who owns the assisted care living center where she lives states that she has not had a cough or vomit or diarrhea. There is no history of fall or striking head. Home meds include furosemide 20 mg BID, hydrocodone 5 mg (typically morning and night), hydroxyzine, buspirone, carvedilol, and quetiapine. Congestive heart failure history noted, managed mainly for leg edema; sleeps flat with one pillow. No prior episodes of similar mental status change. Related Data Home Medications ?Medication ?Instructions ?Recorded ?Confirmed aspirin 81 mg tablet,delayed 81 mg PO DAILY 02/01/22 01/23/25 release (Adult Low Dose Aspirin) polyethylene glycol 3350 17 17 g PO DAILY PRN CONSTIPATION 02/01/22 01/23/25 gram/dose oral powder (Miralax) folic acid 400 mcg tablet 0.8 mg PO BID 02/10/22 01/23/25 Folate 666 Mcg 1 tab PO BID 07/01/24 01/23/25 famotidine 20 mg tablet 20 mg PO BID 07/01/24 01/23/25 furosemide 20 mg tablet 20 mg PO BID PRN FOR EDEMA 07/01/24 01/23/25 propylene glycol 0.6 % eye drops 1 drp ophthalmic (eye) BID PRN Dry 07/01/24 01/23/25 (Systane Complete) Eyes vitamins A,C,V-wmet-czssdm 2,148 1 tab PO BID 07/01/24 01/23/25 mcg-113 mg-45 mg-17.4 mg tablet (PreserVision AREDS) Previous Rx's ?Medication ?Instructions ?Recorded mecobalamin (vitamin B12) 1,000 1,000 mcg PO DAILY #30 tabs 03/24/23 mcg chewable tablet (B12 Active) hydroxyzine HCl 10 mg tablet 10 mg PO TID #90 tabs 10/19/23 buspirone 10 mg tablet 10 mg PO BID #60 tabs 02/13/24 carvedilol 12.5 mg tablet See Rx Instructions .Route 05/13/24 .COMPLEX #270 tabs mupirocin 2 % topical ointment 1 applic topical BID 2 weeks #22 05/27/24 grams cefdinir 300 mg capsule 300 mg PO BID #14 caps 07/02/24 olanzapine 5 mg tablet (Zyprexa) 5 mg PO BID #60 tabs 10/23/24 potassium chloride 10 mEq See Rx Instructions .Route 10/28/24 tablet,extended release(part/cryst) .COMPLEX #90 tabs quetiapine 25 mg tablet (Seroquel) 25 mg PO BID #60 tabs 12/16/24 hydrocodone 5 mg-acetaminophen 325 1 tab PO QID PRN pain 1 month #120 12/19/24 mg tablet tabs fentanyl 50 mcg/hr transdermal 1 patch transdermal Q72H 1 month 01/20/25 patch #5 ea Allergies Allergy/AdvReac Type Severity Reaction Status Date / Time adhesive tape Allergy Severe unknown Verified 01/28/25 20:11 [facility] PFSH: Medical History (Updated 01/28/25 @ 22:23 by Adriel Pozo MD) Dementia Osteoarthritis Hypertension Depression Memory loss Rheumatoid arthritis Congestive heart failure Social History Smoking and tobacco/nicotine status: never used tobacco/nicotine Physical Exam Const: COMMON NORMALS: no acute distress and alert HENMT: COMMON NORMALS: normocephalic and atraumatic HEAD & SCALP: normocephalic and atraumatic Eye: COMMON NORMALS: Equal, round and reactive pupils present, EOMs intact bilaterally and no scleral icterus PUPIL: Yes Equal, round and reactive pupils present Resp: COMMON NORMALS: normal respiratory effort and No retractions OTHER: Tachypneic, no obvious respiratory distress. Cardio: COMMON NORMALS: regular rhythm and No murmurs present (Cardio) RHYTHM: regular rhythm OTHER: Tachycardic GI: COMMON NORMALS: Normal to inspection, nondistended, normoactive bowel sounds present, Soft to palpation and non-tender PALPATION: Yes Soft to palpation Extremity: OTHER: 1+ pitting edema of the bilateral legs to the knees. Of pressure ulcer in the region of the right heel has a dressing overlying it which was not removed. Neuro: SENSORIUM/ORIENTATION: Yes alert Skin: COMMON NORMALS: no rashes or lesions noted GENERAL SKIN EXAM: no rashes or lesions noted Course Vital Signs: Vital signs: Vital Signs Temperature 103.2 F H 01/28/25 19:46 Pulse Rate 111 H 01/28/25 22:25 Respiratory Rate 20 H 01/28/25 22:25 Blood Pressure 121/59 01/28/25 22:25 Pulse Oximetry 93 01/28/25 22:25 Oxygen Delivery Me thod Nasal Cannula 01/28/25 19:46 MDM - Altered Mental Status Medical Decision Making In summary, patient is a 89-year-old female from assisted living seen for fever and altered mental status. CT brain shows nonacute. Chest x-ray to my eye does not show obvious pneumonia. White blood cell count is not elevated, however she is tachycardic and febrile and has urinalysis consistent with UTI for which she was given ceftriaxone. I believe this to be the cause of her altered mental status and fever. She was also given sepsis bolus of IV normal saline. She will be admitted to the hospitalist service for further observation and care and treatment. Family at this time has not made any arrangements should there be a moment when this can be discussed and finalized as to her CODE STATUS but are leaning towards DNR Lab Data 01/28/25 20:34 01/28/25 20:34 Radiology Impressions Chest X-Ray 01/28/25 20:15 IMPRESSION: 1. Negative for infiltrate. 2. Cardiomegaly. 3. Mild emphysematous changes. Head CT 01/28/25 20:15 IMPRESSION: 1. Negative for intracranial hemorrhage or mass effect. 2. Moderate diffuse white matter disease likely reflecting chronic microvascular ischemic changes. 3. Bilateral punctate benign basal ganglia calcifications. Laboratory Results WBC 7.99 10^3/uL (3.29-11.43) 01/28/25 20:34 RBC 4.74 10^6/uL (3.85-5.65) 01/28/25 20:34 Hgb 14.00 g/dL (11.27-16.99) 01/28/25 20:34 Hct 41.7 % (36-47) 01/28/25 20:34 MCV 88.0 fl (85-98) 01/28/25 20:34 MCH 29.5 pg (27-33) 01/28/25 20:34 MCHC 33.6 g/dL (30-55) 01/28/25 20:34 RDW 12.5 % (12.1-15.1) 01/28/25 20:34 Plt Count 132 10^3/cmm (157-399) L 01/28/25 20:34 MPV 8.3 fL (7.4-10.4) 01/28/25 20:34 Lymph % (Auto) Not Reportable 01/28/25 20:34 Dickenson % (Auto) Not Reportable 01/28/25 20:34 Lymph # (Auto) Not Reportable 01/28/25 20:34 Dickenson # (Auto) Not Reportable 01/28/25 20:34 Total Counted 100 (0-100) 01/28/25 20: Atypical Lymphs % Not Reportable 01/28/25 20:34 Segmented Neutrophils 89 % 01/28/25 20: Band Neutrophils Not Reportable 01/28/25 20:34 Lymphocytes (Manual) 5 % 01/28/25 20:34 Monocytes (Manual) 0.0 % 01/28/25 20:34 Absolute Monocytes 0.0 10^3/cmm (0.1-0.6) L 01/28/25 20:34 Eosinophils (Manual) 1 % 01/28/25: Absolute Eosinophils 0.1 10^3/cmm (0.0-0.7) 01/28/25 20:34 Basophils (Manual) 0.0 % 01/28/25 20:34 Absolute Basophils 0.0 10^3/cmm (0.0-0.2) 01/28/25 20:34 Metamyelocytes 3.0 % 01/28/25 20:34 Myelocytes 2.0 % 01/28/25 20:34 Platelet Estimate Decreased (Normal) L 01/28/25 20:34 Specimen Type Arterial 01/28/25 22:06 Sample Site Radial, left 01/28/25 22:06 ABG pH 7.42 (7.35-7.45) 01/28/25 22:06 ABG pCO2 30.2 mmHg (35-45) L 01/28/25 22:06 ABG pO2 73.8 mmHg (80.0-100.0) L 01/28/25 22:06 ABG PO2/FiO2 Ratio 230 01/28/25 22:06 ABG HCO3 19.8 mmol/L (22-26) L 01/28/25 22:06 ABG O2 Saturation 96.3 01/28/25 22:06 ABG Base Excess -3.6 mmol/L (-2.0-2.0) L 01/28/25 22:06 Delvis Test Pos 01/28/25 22:06 A-a O2 Gradient 14.9 mmHg (5-10) H 01/28/25 22:06 Hematocrit 38.7 % (37-47) 01/28/25 22:06 Hgb O2 Saturation 94.4 % (95-100) L 01/28/25 22:06 Carboxyhemoglobin 1.1 %THgb (0.4-20.1) 01/28/25 22:06 Methemoglobin 0.8 % (0.4-1.5) 01/28/25 22:06 Total Hemoglobin 12.6 g/dL (12-16) 01/28/25 22:06 Sodium 136.0 mmol/L (131-143) 01/28/25 22:06 Potassium 3.1 mmol/L (3.5-5.0) L 01/28/25 22:06 Glucose 124.0 mg/dL (70-115) H 01/28/25 22:06 Ionized Calcium 1.1 mmol/L (1.1-1.4) 01/28/25 22:06 O2 Delivery Device Nc 01/28/25 22:06 O2 Liters/Min 3.0 % 01/28/25 22:06 FiO2 32.0 % 01/28/25 22:06 [employer] [email or web address] 01/28/25 22:06 Sodium 135 mmol/L (136-145) L 01/28/25 20:34 Potassium 3.9 mmol/L (3.5-5.1) 01/28/25 20:34 Chloride 96 mmol/L (98-107) L 01/28/25 20:34 Carbon Dioxide 23 mmol/L (22-29) 01/28/25 20:34 Anion Gap 19.9 (5-19) H 01/28/25 20:34 BUN 13 mg/dL (8-23) 01/28/25 20:34 Creatinine 0.8 mg/dL (0.5-0.9) 01/28/25 20:34 GFR Calculation Not Reportable 01/28/25 20:34 Glucose 116 mg/dL (65-115) H 01/28/25 20:34 Calculated Osmolality 281 mOsm/kg (285-295) L 01/28/25 20:34 Lactic Acid 3.8 mmol/L (0.5-2.2) H 01/28/25 20:34 Calcium 9.3 mg/dL (8.5-10.5) 01/28/25 20: Total Bilirubin 0.9 mg/dL (0.15-1.2) 01/28/25 20: AST 13 U/L (0-32) 01/28/25 20: ALT 9 U/L (0-33) 01/28/25 20:34 Alkaline Phosphatase 138 U/L (35-105) H 01/28/25 20:34 Total Protein 6.9 g/dL (6.6-8.7) 01/28/25 20: Albumin 4.1 g/dL (3.5-5.2) 01/28/25 20: Globulin 2.8 g/dL (1.3-4.6) 01/28/25 20:34 Procalcitonin 4.88 ng/mL (0-0.5) H 01/28/25 20:34 Urine Color Yellow (Yellow) 01/28/25 21:13 Urine Appearance Cloudy (CLEAR) A 01/28/25 21:13 Urine pH 6.0 (5-7) 01/28/25 21:13 Ur Specific [place] 1.010 (1.005-1.030) 01/28/25 21:13 Urine Protein 3+ (Negative) A 01/28/25 21:13 Urine Glucose (UA) Negative (Normal) 01/28/25 21:13 Urine Ketones Negative (Negative) 01/28/25 21: Urine Blood 2+ (Negative) A 01/28/25 21: Urine Nitrate Positive (Negative) A 07/15/25 21:13 Urine Bilirubin Negative (Negative) 01/28/25 21:13 Urine Urobilinogen 1.0 mg/dL (Negative) 01/28/25 21:13 Ur Leukocyte Esterase 2+ (Negative) A 01/28/25 21:13 Urine RBC 51-100 /hpf (0-2) H 01/28/25 21:13 Urine WBC >100 /hpf (0-5) H 01/28/25 21:13 Ur Squamous Epith Cells 0-5 /hpf (0-5) 01/28/25 21:13 Amorphous Sediment Not Reportable 01/28/25 21:13 Urine Bacteria 4+ /hpf (NONE) H 01/28/25 21:13 Hyaline Casts 1.21 /lpf 01/28/25 21:13 All radiology interpretation(s) finalized by discharge Discharge Plan Discharge Patient Disposition: Admitted As Inpatient Clinical Impression: Sepsis secondary to UTI Condition: Stable Coding Level of Care Code ED Financial Representative for Rob Chowdary
[2025-01-29] VITALS (9 sets, daily range): BP systolic 94–1689; BP diastolic 60–90; PULSE 79–126; RESP 15–52; TEMP 36.4–39.5; O2SAT 91–100; BMI 21.2
[2025-01-29 01:25] LABS: Coronavirus 229E,HKU1,NL63,OC4 Not Detected (NOT DETECT); Parainfluenza Virus Type 1 Not Detected (NOT DETECT); Parainfluenza Virus Type 2 Not Detected (NOT DETECT); Parainfluenza Virus Type 3 Not Detected (NOT DETECT); Parainfluenza Virus Type 4 Not Detected (NOT DETECT); SARS-COV-2 Not Detected (NOT DETECT)
[2025-01-29 01:44] LABS: Lactic Acid level (Lactate) 3.2 mmol/L (0.5-2.2)
--- NOTE | 2025-01-29 02:11 | PM.HP ---
Providers/Chief Complaint Admitting Physician: Liz Romo Primary Care Provider: Ezequiel Lynch MD Chief Complaint: AMS History of Present Illness 89-year-old female with a history of dementia, congestive heart failure, hypertension, and chronic pain managed with a fentanyl patch, who was brought in by her son for acute change in mental status. Per family, the patient had been doing relatively well as recently as the afternoon prior to admission. She had been seen by her primary care physician, Dr. Lynch, on January 21 for routine dementia follow-up, and her condition was described as stable at that time. On the evening of presentation, however, her son who also helps manage the assisted living facility where she resides noted sudden onset of confusion, inability to communicate coherently, and diaphoresis around 5:30 PM. He reports that earlier that same day she had been interactive and oriented to her usual baseline. At the time of symptom onset, her verbal output was described as nonsensical, and she was unable to follow commands or speak intelligibly. The family was concerned for a possible stroke and brought her to the emergency department. On arrival to the ED, she was febrile to 103.2?F, tachycardic with a pulse of 126 bpm, and tachypneic with a respiratory rate of 25. Initial blood pressure was 178/97 but later trended down to a low of 88/71, with current vitals showing borderline hypotension at 102/62. Notably, she does not typically require supplemental oxygen and has no known history of chronic pulmonary disease, but appeared clinically congested on exam with bilateral lower extremity edema. Auscultation revealed a systolic murmur, likely representing underlying valvular disease such as aortic stenosis, though no prior echocardiogram was available for review. She was found to have a 50 mcg/hr fentanyl patch in place, which was removed given her borderline blood pressures. Laboratory studies were notable for a lactic acid of 3.8 initially, with minimal downtrend to 3.2 after 2L of IV fluids. Procalcitonin was elevated at 4.88, suggesting a bacterial source. CBC showed a WBC of 7.9, Hgb 14, Hct 41.7, and platelets 132, representing a significant drop from her baseline of 226 earlier this year. BMP was within normal limits with a creatinine of 0.8 and BUN of 13. Anion gap was elevated at 19.9. ABG revealed mild respiratory alkalosis with metabolic compensation (pH 7.42, pCO2 30.2, HCO3 19.8). UA was strongly suggestive of infection, with 4+ bacteria, over 100 WBCs, positive leukocyte esterase and nitrites, and 3+ protein. Chest X-ray showed no acute infiltrates, only mild emphysematous changes and cardiomegaly. CT head showed no evidence of acute intracranial pathology. A respiratory viral panel was negative. In the ED, she received 1g IV Rocephin, 1g IV Tylenol, and approximately 2 liters of normal saline. Despite this, her blood pressure remained soft, and her mental status had not significantly improved at the time of admission. Family has elected DNR status but would like full medical care including ICU-level support if needed. Review of Systems Narrative: Unable to obtain Medications/Allergies Home Medications ?Medication ?Instructions ?Recorded ?Confirmed ?Last Taken ?Type aspirin 81 mg tablet,delayed 81 mg PO DAILY 02/01/22 01/23/25 06/30/24 History release (Adult Low Dose Aspirin) polyethylene glycol 3350 17 17 g PO DAILY PRN CONSTIPATION 02/01/22 01/23/25 Unknown History gram/dose oral powder (Miralax) folic acid 400 mcg tablet 0.8 mg PO BID 02/10/22 01/23/25 06/30/24 History mecobalamin (vitamin B12) 1,000 1,000 mcg PO DAILY #30 tabs 03/24/23 01/23/25 06/30/24 Rx mcg chewable tablet (B12 Active) hydroxyzine HCl 10 mg tablet 10 mg PO TID #90 tabs 10/19/23 01/23/25 06/30/24 Rx buspirone 10 mg tablet 10 mg PO BID #60 tabs 02/13/24 01/23/25 06/30/24 Rx carvedilol 12.5 mg tablet See Rx Instructions .Route 05/13/24 01/23/25 06/30/24 Rx .COMPLEX #270 tabs mupirocin 2 % topical ointment 1 applic topical BID 2 weeks #22 05/27/24 01/23/25 06/30/24 Rx grams Folate 666 Mcg 1 tab PO BID 07/01/24 01/23/25 06/30/24 History famotidine 20 mg tablet 20 mg PO BID 07/01/24 01/23/25 06/30/24 History furosemide 20 mg tablet 20 mg PO BID PRN FOR EDEMA 07/01/24 01/23/25 Unknown History propylene glycol 0.6 % eye drops 1 drp ophthalmic (eye) BID PRN Dry 07/01/24 01/23/25 Unknown History (Systane Complete) Eyes vitamins A,C,P-wbjy-klltlp 2,148 1 tab PO BID 07/01/24 01/23/25 06/30/24 History mcg-113 mg-45 mg-17.4 mg tablet (PreserVision AREDS) cefdinir 300 mg capsule 300 mg PO BID #14 caps 07/02/24 01/23/25 Unknown Rx olanzapine 5 mg tablet (Zyprexa) 5 mg PO BID #60 tabs 10/23/24 01/23/25 Unknown Rx potassium chloride 10 mEq See Rx Instructions .Route 10/28/24 01/23/25 Unknown Rx tablet,extended release(part/cryst) .COMPLEX #90 tabs quetiapine 25 mg tablet (Seroquel) 25 mg PO BID #60 tabs 12/16/24 01/23/25 Unknown Rx hydrocodone 5 mg-acetaminophen 325 1 tab PO QID PRN pain 1 month #120 12/19/24 01/23/25 Unknown Rx mg tablet tabs fentanyl 50 mcg/hr transdermal 1 patch transdermal Q72H 1 month 01/20/25 01/23/25 Unknown Rx patch #5 ea Allergies Allergy/AdvReac Type Severity Reaction Status Date / Time adhesive tape Allergy Severe unknown Verified 01/28/25 20:11 PFSH Acute PFSH: Medical History (Updated 01/28/25 @ 22:23 by Adriel Pozo MD) Dementia Osteoarthritis Hypertension Depression Memory loss Rheumatoid arthritis Congestive heart failure Social History Smoking and tobacco/nicotine status: never used tobacco/nicotine Vitals/I&O/Wt Last Vital Signs Temp 103.2 F H 01/28/25 19:46 Pulse 126 H 01/28/25 23:30 Resp 25 H 01/28/25 23:30 BP 102/62 01/28/25 23:45 Pulse Ox 97 01/28/25 23:30 O2 Del Method Nasal Cannula 01/29/25 01:10 01/28/25 01/28/25 01/29/25 14:59 22:59 06:59 Intake Total 2182 / 2182 Balance 2182 / 2182 Weight last 48 hrs Weight 58.06 kg Weight 69.4 kg Physical Exam Narrative: General: Acutely confused, diaphoretic HEENT: Grossly unremarkable CV: Tachycardic, systolic murmur noted. Respiratory: Tachypneic, sounds congested on auscultation. Abdomen: Soft, non-tender, non-distended. Neuro: not able to follow commands Extremities: Bilateral lower extremity edema. Data 01/28/25 20:34 01/28/25 20:34 Micro: Microbiology 01/28/25 21:47 Blood Culture - Preliminary Blood SPECIMEN COLLECTED 01/28/25 20:34 Blood Culture - Preliminary Blood SPECIMEN COLLECTED A&P Assessment and plan 1. Sepsis secondary to UTI: 2. UTI (urinary tract infection): 3. Dementia: Plan: #1 Sepsis secondary to suspected urinary tract infection Clinical picture consistent with sepsis: febrile to 103.2?F, tachycardic, hypotensive, and altered, with elevated lactate and procalcitonin. UA strongly positive. Blood and urine cultures have been obtained. Received 1g IV Rocephin in the ED ? continuing empiric IV ceftriaxone pending culture. Continue fluid resuscitation at 125 mL/hr with close hemodynamic monitoring. Will repeat lactic acid in am. Monitor for clinical signs of source control failure or need for broader coverage. #2 Acute encephalopathy No focal deficits or imaging findings concerning for acute stroke; CT head negative. ABG does not suggest CO2 retention or significant metabolic derangement. Will hold opioids at this time; fentanyl patch has been removed. Monitor neurologic status closely. If no improvement, will reassess need for further imaging or EEG. #3 Hypotension and fluid status in setting of CHF Blood pressure has been soft but responsive to fluids. No signs of agustina pulmonary edema but clinically appears volume-expanded (lower extremity edema, subtle JVD, systolic murmur). Chest X-ray without infiltrate or overt congestion. Plan is to cautiously continue fluids for now (125 mL/hr), reassess volume status q4h, and consider Lasix PRN if signs of overload. Monitor daily weights, I/Os, and BNP trend if needed. #4 Opioid management On chronic 50 mcg/hr fentanyl patch, likely contributing to AMS and hypotension. Patch has been removed. Will hold further opioids for now. Re-evaluate pain control needs as mental status improves. #5 Thrombocytopenia Platelet count decreased from prior 226 to 132 on admission. Likely reactive in setting of infection, but will trend CBC. No evidence of bleeding or petechiae. Not on anticoagulation. Monitor for DIC if clinical status worsens. #6 Code status / goals of care Family elected DNR status but desires full medical treatment otherwise. No formal advance directive or POA on file; son and his are primary decision-makers. ICU-level care acceptable, but CPR not desired. Documented in EMR and communicated to nursing. PDMP PDMP Reviewed: Not Reviewed Attestations Medical Necessity Statement*: Anticipate over 2 midnight stay in hospital for eval and treatment of sepsis. Time Spent in Patient Care: Greater than 35 minutes Coding Level of Care Code Acute Code for Chg Fwd Diagnoses Sepsis secondary to UTI A41.9; N39.0 UTI (urinary tract infection) N39.0 Dementia F03.90
[2025-01-29] MEDS: ondansetron 2 mg/ML SDV 2 mL 4 MG IVP (03:29)
[2025-01-29] MEDS: heparin 5,000 unit/mL INJ 1 mL 5000 UNIT SUBCUT ×2 (03:29→15:21)
--- NOTE | 2025-01-29 03:55 | ECG_ITS ---
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 Measurements Intervals [place] Rate: 121 P: 65 IA: 186 QRS: -21 QRSD: 86 T: 67 QT: 274 QTc: 389 Interpretive Statements SINUS TACHYCARDIA WITH OCCASIONAL SUPRAVENTRICULAR PREMATURE COMPLEXES BORDERLINE LEFT AXIS DEVIATION [QRS AXIS < -20] LOW QRS VOLTAGE IN PRECORDIAL LEADS [QRS DEFLECTION < 1.0 mV IN CHEST LEADS] PATTERN CONSISTENT WITH PULMONARY DISEASE MODERATE ST DEPRESSION [0.05+ mV ST DEPRESSION] Compared to ECG 07/01/2024 11:58:35 Low QRS voltage now present ST (T wave) deviation now present Sinus rhythm no longer present Myocardial infarct finding no longer present Electronically Signed On 01-29-2025 16:44:54 CDT by Calixto Jones M.D. [email or web address]
[2025-01-29] MEDS: acetaminophen 1,000 MG/100 ML PIGGYBACK 400 MG IV (04:19)
[2025-01-29 04:31] LABS: Lactic Sepsis W/Reflex 3.3 mmol/L (0.5-2.2)
[2025-01-29 04:38] LABS: Troponin(5th) Baseline 201 ng/L (0-10)
[2025-01-29 05:54] LABS: Reflex Lactate Order REFLEX LACTIC ORDERD
[2025-01-29 06:37] LABS: Lactic Acid level (Lactate) 3.2 mmol/L (0.5-2.2)
[2025-01-29 06:44] LABS: Troponin 5 2HR 233.3 ng/L (0-10); Troponin 5 2HR Delta 32.3 ABS# (0-10)
--- NOTE | 2025-01-29 08:39 | PC.PHAR ---
Pt is from [facility]
--- NOTE | 2025-01-29 09:48 | USCV_ITS ---
Amberly Young Age: 89 Gender: F : 1935 Exam Date: 01/29/2025 10:26 Ordering Phys: Cecy Davila Technologist: PITER Exam Location: [facility] [place] Indication: Elevated Trop BP: / HR: 90 Rhythm: Sinus Technical Quality: Adequate MEASUREMENTS (Male / Female) Normal Values 2D ECHO LV Diastolic Diameter PLAX 4.1 cm 4.2 - 5.9 / 3.9 - 5.3 cm IVS Diastolic Thickness 1.2 cm 0.6 - 1.0 / 0.6 - 0.9 cm IVS Systolic Thickness 2.0 cm LVPW Diastolic Thickness 1.3 cm 0.6 - 1.0 / 0.6 - 0.9 cm LVPW Systolic Thickness 1.6 cm LVOT Diameter 2.0 cm LV Ejection Fraction 2D Teich 51.9 % LV Ejection Fraction MOD 4C 52.7 % LV Ejection Fraction MOD 2C 58.1 % LV Ejection Fraction 2C AL 59.6 % LA Diameter 2.8 cm RA Systolic Volume 4C AL 41.9 ml RA Systolic Volume 4C MOD 41.0 ml LA Sys Volume AL 61.5 cm cubed LA Sys Volume Index AL 38.0 cm cubed/m squared Aorta at Sinotubular Diameter 2.5 cm IVC Diameter 1.7 cm M-MODE LA Ao Ratio MM 1.2 AV Cusp Separation MM 1.3 cm DOPPLER AV Peak Velocity 138.0 cm/s LVOT Peak Velocity 97.0 cm/s AV Area Cont Eq vti 2.3 cm squared AV Area Cont Eq pk 2.3 cm squared MV Peak Velocity 117.0 cm/s MV Area PHT 3.9 cm squared Mitral E to A Ratio 0.8 TR Peak Velocity 91.0 cm/s TR Peak Gradient 3.3 mmHg TV Peak E Velocity 69.0 cm/s PV Peak Velocity 98.0 cm/s FINDINGS Left Ventricle Normal left ventricular size, systolic function and wall thickness, with no regional wall motion abnormalities. Left ventricular ejection fraction is estimated at 60 %. Grade I/IV diastolic dysfunction (abnormal relaxation filling pattern), normal to mildly elevated filling pressures. Right Ventricle The right ventricle is normal in size and function. Right Atrium The right atrium is normal in size. Left Atrium Moderately increased left atrial size. Mitral Valve Moderately thickened mitral valve. No mitral valve stenosis. Moderate mitral valve regurgitation. Aortic Valve Mild aortic valve calcification. No aortic valve stenosis. Tricuspid Valve Structurally normal tricuspid valve without significant stenosis or regurgitation. Pulmonary artery systolic pressure is normal. Pulmonic Valve Structurally normal pulmonic valve without significant stenosis. There is no pulmonic regurgitation. Pericardium Normal pericardium without effusion. Aorta Normal ascending aorta dimension. IVC The inferior vena cava appears normal. CONCLUSIONS Normal left ventricular size, systolic function and wall thickness, with no regional wall motion abnormalities. Left ventricular ejection fraction is estimated at 60 %. Grade I/IV diastolic dysfunction (abnormal relaxation filling pattern), normal to mildly elevated filling pressures. Moderately increased left atrial size. Moderately thickened mitral valve. No mitral valve stenosis. Moderate mitral valve regurgitation. There is no pericardial effusion. Right atrial pressure is around 5 mm of mercury. Elliot Reilly MD (Electronically Signed) Final Date: 29 January 2025 19:21 S
--- NOTE | 2025-01-29 09:48 | PC.CHAP ---
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 [] Patient/Family/Request visit [] Outpatient visit [] Follow-up visit [] Physician referral [] Code/Alert [x] Routine visit [] Staff referral [] Actively dying [] Patient sleeping [x] Family support [] [] Out of room [] Palliative care [] [] Receiving care in room [] Pre-surgical visit [] Trauma [] Long length of stay [] ICU visit [] Other: Relational/Emotional Strength [x] Patient feels connected with others/family/visitors/staff [] Distress [] Loneliness/isolation [] Abandonment Spirituality of Patient [x] Person of Laisha [] Attends Pentecostalism of their Laisha [x] Believes in Prayer [] Reads Bible or Taoism materials [] There are Spiritual issues to be addressed Shoe Ironer Interventions [x] Prayer [x] Active listening [x] Non-anxious presence [x] Spiritual/emotional support [] Crisis/trauma care [] Spiritual counseling [] Bereavement support [] Provided bereavement packet [] Provided Bible/devotional materials [] Provided toy/stuffed animal, coloring book to patient or family member [] Provided Communion [] Anointing/[place]et [] Salvation [x] Completed spiritual assessment [] Other: Impact on Illness or Injury [] Angry [] Fearful [] Anxious [] Often cries [] Exhaustion [] Unable to work [] Unable to attend uatsdin [] Unable to walk/stand [] Unable to read [] Unable to drive [] Unable to eat/drink [] Unable to sleep [] Unable to be with family [] Patient intubated [] Other: Summary Time spent with patient 5 min
--- NOTE | 2025-01-29 09:49 | P.CONIM_ITS ---
<Statement entered by Elliot Reilly MD - 01/30/25 20:28> Patient was evaluated and cared for in conjunction with an advanced practice practitioner. I personally examined the patient and reviewed the chart and all pertinent data including imaging, telemetry, and laboratory results. I discussed the patient in detail with the advanced practice practitioner. Please see their note for complete H&P testing result and agreed upon plan of care for the patient. Providers/Reason For Consult 2 Consulting Physician/Specialty*: Dr Ketty Reilly, cardiology Reason for Consult*: Troponin elevation Requesting Physician: Paula Boo MD Attending Physician: Paula Boo MD Primary Care Provider: Ezequiel Lynch MD History of Present Illness History of Present Illness Amberly Young is a 89 year old female with past medical history of dementia, hypertension, congestive heart failure, rheumatoid arthritis who presented to the emergency room 01/28/2025 from assisted living due to abrupt change in mental status. She was found to be febrile sepsis screen was positive, found to have UTI as the probable source. Troponin series: 201-> 233-> 268. She has not had any verbalized complaint of chest pain. Her son was at the bedside for exam, patient was unable to answer questions. Most recent echocardiogram in 2019 showed normal LVEF, mild mitral regurgitation. EKG yesterday shows significant artifact, however appears to be regular rhythm and tachycardic. EKG obtained earlier this morning also similar in artifact, appears to be regular rhythm and tachycardic. No STEMI. Review of Systems 2 Const: Denies: fever(s), chills, change in weight, fatigue or diaphoresis Eyes: Denies: change in vision ENMT: Denies: epistaxis Card: Denies: chest pain, palpitations, irregular heart rhythm, edema, syncope, pre-syncope, dyspnea on exertion, orthopnea or leg pain with exertion Resp: Denies: dyspnea, productive cough or wheezing GI: Denies: nausea, vomiting, hematemesis, hematochezia or melena : Denies: hematuria Musc: Denies: extremity swelling Juan Manuel/Lymph: Denies: easy bruising or easy bleeding Medications/Allergies Home Medications ?Medication ?Instructions ?Recorded ?Confirmed ?Last Taken ?Type aspirin 81 mg tablet,delayed 81 mg PO DAILY 02/01/22 0 01/29/25 01/28/25 History release (Adult Low Dose Aspirin) polyethylene glycol 3350 17 17 g PO DAILY CONSTIPATION 02/01/22 01/29/25 01/28/25 History gram/dose oral powder (Miralax) hydroxyzine HCl 10 mg tablet 10 mg PO TID #90 tabs 11/0701/29/25 01/28/25 Rx buspirone 10 mg tablet 10 mg PO BID #60 tabs 01/29/25 01/28/25 Rx carvedilol 12.5 mg tablet See Rx Instructions .Route 1 01/29/25 01/28/25 Rx .COMPLEX #270 tabs Folate 666 Mcg 2 tab PO BID 07/01/2401/28/25 History famotidine 20 mg tablet 20 mg PO BID 07/01/2401/28/25 History furosemide 20 mg tablet 20 mg PO BID FOR EDEMA 07/0101/29/25 01/28/25 History propylene glycol 0.6 % eye drops 1 drp ophthalmic (eye ) BID Dry Eyes 07/01/24 01/29/25 01/28/25 History (Systane Complete) vitamins A,C,K-swvr-auegos 2,148 1 tab PO BID 07/01/24 01/29/25 01/28/25 History mcg-113 mg-45 mg-17.4 mg tablet (PreserVision AREDS) olanzapine 5 mg tablet (Zyprexa) 5 mg PO BID #60 tabs 10/23/24 01/29/25 01/28/25 Rx quetiapine 25 mg tablet (Seroquel) 25 mg PO BID #60 ta bs 12/16/24 01/29/25 01/28/25 Rx hydrocodone 5 mg-acetaminophen 325 1 tab PO QID PRN pa in 1 month #120 12/19/24 01/29/25 Unknown Rx mg tablet tabs fentanyl 50 mcg/hr transdermal 1 patch transdermal Q72 H 1 month 01/20/25 01/29/25 01/28/25 Rx patch #5 ea cyanocobalamin (vitamin B-12) 1,000 mcg sublingual MARGARETH LY 01/29/25 01/29/25 01/28/25 History 1,000 mcg sublingual tablet furosemide 20 mg tablet 20 - 40 mg PO DAILY PRN Michael a 01/29/25 01/29/25 Unknown History hydrocortisone 1 % topical cream See Rx Instructions . Route 01/29/25 01/29/25 01/28/25 History .COMPLEX PRN Skin Irritation potassium chloride 10 mEq 10 meq PO DAILY 01/29/2501/28/25 History tablet,extended release(part/cryst) Allergies Allergy/AdvReac Type Severity Reaction Status Date / Time adhesive tape Allergy Severe unknown Verified 01/28/25 20:11 Current Medications Generic Name Dose Route Start Last Admin Trade Name Janet PRN Reason Stop Dose Admin Fentanyl 1 patch 01/29/25 07:30 01/29/25 08:13 Fentanyl 50 Mcg Patch TRANSDERMA 1 patch Q72H LUIS ACRLOS Administration Heparin Sodium (Porcine) 5,000 unit 01/29/25 02:15 01/29/25 03:29 Heparin 5,000 Unit/Ml Inj 1 Ml SUBCUT 5,000 unit Q12H LUIS CARLOS Administration Lactated Ringer's 1,000 mls @ 125 mls/hr 01/29/25 02:15 01/29/25 03:29 Lactated Ringers IV 125 mls/hr .Q8H LUIS CARLOS Administration Ondansetron HCl 4 mg 01/29/25 02:07 01/29/25 03:29 Ondansetron 2 Mg/Ml Sdv 2 Ml IVP 4 mg Q8H PRN Administration vomiting, or N/V if npo PFSH Acute 2 PFSH: Medical History Dementia Osteoarthritis Hypertension Depression Memory loss Rheumatoid arthritis Congestive heart failure Social History Smoking and tobacco/nicotine status: never used tobacco/nicotine Vitals/I&O/Wt Last Vital Signs Temp 100.4 F H 01/29/25 07:32 Pulse 97 01/29/25 07:32 Resp 17 01/29/25 07:32 BP 95/60 01/29/25 07:32 Pulse Ox 95 01/29/25 07:32 O2 Del Method Nasal Cannula 01/29/25 07:32 O2 Flow Rate 3 01/29/25 08:00 01/28/25 01/29/25 01/29/25 22:59 06:59 14:59 Intake Total 218 / 2282 100 / 2282 Balance 2181 100 / 2282 Weight last 48 hrs Weight 126 lb Weight 128 lb Weight 153 lb Physical Exam 2 Const: COMMON NORMALS: no acute distress EXAM LIMITATIONS: altered mental status (pt nonverbal) GENERAL APPEARANCE: cooperative and comfortable O RIENTATION/CONSCIOUSNESS: Yes Other orientation findings (sleepy, opened eyes to voice but could not answer questions) Chest: COMMONS NORMALS: normal inspection of the chest and normal palpation of entire chest wall CHEST: Yes Symmetrical chest wall rise Resp: COMMON NORMALS: normal respiratory effort, No retractions, No use of accessory muscles and clear to auscultation bilaterally EFFORT & INSPECTION: Yes symmetric chest movement AUSCULTATION: clear to auscultation bilaterally Cardio: COMMON NORMALS: regular rate, regular rhythm, S1 normal heart sound present, S2 normal heart sound present, No gallops present (Cardio), No clicks present (Cardio), No murmurs present (Cardio) and No rub (Cardio) RATE: r egular rate RHYTHM: regular rhythm HEART SOUNDS: S1 normal heart sound present and S2 normal heart sound present PERIPHERAL PULSES: radial pulses present Extremity: COMMON NORMALS: no pedal edema Neuro: COMMON NORMALS: moves all extremities Data 01/28/25 20:34 01/28/25 20:34 Micro: Microbiology 01/28/25 21:47 Blood Culture - Preliminary Blood SPECIMEN COLLECTED 01/28/25 20:34 Blood Culture - Preliminary Blood SPECIMEN COLLECTED A&P Assessment and plan 1. Sepsis secondary to UTI: 2. Memory loss: 3. Dementia: 4. Hypertension: 5. Congestive heart failure: 6. Elevated troponin: Plan: Discussed with the patient's son regarding patient's wishes on resuscitation given her DNR status and aggressive versus conservative medical management. The options for evaluation were discussed in detail including echocardiogram, stress test, coronary angiogram. The patient's son felt that the patient would not want more invasive testing or intervention. Given that preference we decided to evaluate further with echocardiogram and create a further plan from there. For now the troponin elevation seems to be demand ischemia from the urosepsis. PDMP PDMP Reviewed: Not Reviewed Coding Level of Care Code Acute Code for [facility] Fwd Diagnoses Sepsis secondary to UTI A41.9; N39.0 Memory loss R41.3 Dementia F03.90 Hypertension I10 Congestive heart failure I50.9 Elevated troponin R79.89
[2025-01-29 10:44] LABS: Troponin 5 6HR 268.7 ng/L (0-10); Troponin 5 6HR Delta 67.7 ng/L (0-12)
--- NOTE | 2025-01-29 16:35 | PM.MISC ---
Miscellaneous Note Note: Patient seen this morning. She is very sleepy. Discussed with patient's son that we will be discontinuing the fentanyl patch and using a reduced dose of 12.5. He is okay with that. He states that she is to be DNR/DNI. Blood cultures 4 out of 4 positive for gram-negative rods. I will escalate from ceftriaxone to IV Zosyn at this time. Delta troponin elevated however most likely secondary demand ischemia. Cardiology was consulted and evaluate the patient. Hold off on heparin drip due to risk of bleeding at this time. I do not believe her troponin is elevated due to underlying cardiac event. EKG does not show acute ischemic changes. Procalcitonin elevated at 4.88. Will continue to treat for sepsis secondary to UTI. Agree with admitting physicians assessment and plan. Speech therapy evaluation once patient awake.
[2025-01-29] MEDS: piperacillin-tazobactam 3.375 GM in sodium chloride 0.9% (plus) 50 ML IV (17:12)
[2025-01-30] VITALS (7 sets, daily range): BP systolic 135–175; BP diastolic 51–83; PULSE 78–93; RESP 15–20; TEMP 36.4–37.1; O2SAT 93–96
[2025-01-30] MEDS: piperacillin-tazobactam 3.375 GM in sodium chloride 0.9% (plus) 50 ML IV ×3 (00:52→17:39)
[2025-01-30] MEDS: heparin 5,000 unit/mL INJ 1 mL 5000 UNIT SUBCUT ×2 (01:48→17:39)
[2025-01-30 06:20] LABS: Hematocrit 32.9 % (36-47); Hemoglobin 10.80 g/dL (11.27-16.99); Mean Corpuscular HGB Conc 32.8 g/dL (30-55); Mean Corpuscular Hemoglobin 29.6 pg (27-33); Mean Corpuscular Volume 90.1 fl (85-98); Nucleated Red Blood Cells % 0 %; Platelet Count 89 10^3/cmm (157-399); Red Blood Count 3.65 10^6/uL (3.85-5.65)
[2025-01-30 06:50] LABS: Anion Gap 13.3 (5-19); Blood Urea Nitrogen 21 mg/dL (8-23); Calcium 8.5 mg/dL (8.5-10.5); Carbon Dioxide 23 mmol/L (22-29); Chloride 106 mmol/L (98-107); Creatinine Clr Calc Pharmacy 42.1782; Glucose 84 mg/dL (65-115); Osmolality Calculated 288 mOsm/kg (285-295); Potassium 4.3 mmol/L (3.5-5.1); Sodium 138 mmol/L (136-145)
[2025-01-30 06:58] LABS: Slide Review Slide Review Perform; White Blood Count 31.36 10^3/uL (3.29-11.43)
--- NOTE | 2025-01-30 08:00 | CTR_ITS ---
PROCEDURE INFORMATION: Exam: CT Abdomen And Pelvis Without Contrast Exam date and time: 01/30/2025 2:01 AM Age: 89 years old Clinical indication: Other: Urosepsis; Prior surgery; Surgery date: 6+ months; Surgery type: Spinal fusion TECHNIQUE: Imaging protocol: Computed tomography of the abdomen and pelvis without contrast. Radiation optimization: All CT scans at this facility use at least one of these dose optimization techniques: automated exposure control; mA and/or kV adjustment per patient size (includes targeted exams where dose is matched to clinical indication); or iterative reconstruction. COMPARISON: No relevant prior studies available. RADIATION DOSE METRICS: Total DLP (mGy-cm): 813.5 FINDINGS: Lungs: Mild probable atelectasis in the posterior lower lungs, pneumonitis not excluded. Small bilateral pleural effusions. Heart: Suspect mild to moderate cardiomegaly. Liver: Unremarkable. Gallbladder and biliary ducts: Prior cholecystectomy, no significant biliary tree dilation. Pancreas: Unremarkable. Spleen: Unremarkable. Adrenal glands: Unremarkable. Kidneys and ureters: Borderline/mild hydronephrosis and hydroureter bilaterally. I suspect this appearance is likely secondary to the distended urinary bladder. No visible renal or ureteral calculus. Mild perinephric stranding and fluid bilaterally, greater on the right. This is a nonspecific appearance and could be chronic. However possibility of pyelonephritis should also be considered, please correlate clinically. Stomach and bowel: Large amount of stool in the rectum and distal sigmoid colon. The rectum is also significantly distended, transverse diameter up to 9.5 cm. The appearance raises strong suspicion for fecal impaction. No obvious evidence for stercoral colitis at this time, please correlate clinically. No other significant bowel distention. There are no CT findings to suggest diverticulitis. Appendix: The appendix is not identified with certainty, however no definite pericecal inflammatory changes are seen. Intraperitoneal space: No free intraperitoneal air. Very small amount of peritoneal fluid in the lower right paracolic gutter. No generalized ascites. Vasculature: Moderate aortic and other vascular calcifications. No evidence for abdominal aortic aneurysm. Lymph nodes: No retroperitoneal adenopathy. Urinary bladder: The urinary bladder appears somewhat distended at the time of scanning. The urinary bladder measures 13 x 8.5 x 10.5 cm, estimated volume approximately 605 cc. Please correlate clinically. No visible calculus in the bladder. No definite abnormal bladder wall thickening. Reproductive: Apparent prior hysterectomy. No definite ovarian/adnexal cyst or mass by CT. Bones/joints: Prior lumbar spine fusion surgery at L4-L5. Prominent degenerative/arthritic changes throughout the lumbar spine. Soft tissues: There is asymmetric atrophy of the left iliopsoas muscle. CT/CT abdomen pelvis wo con [id number] IMPRESSION: 1. Large amount of stool in the rectum and distal sigmoid colon, with prominent rectal distension. The appearance raises strong suspicion for fecal impaction. See above. 2. No free air or other significant bowel distention. 3. Mild perinephric stranding and fluid bilaterally, see above discussion. 4. Somewhat distended urinary bladder, details above. 5. Bilateral borderline/mild hydronephrosis and hydroureter, likely secondary to the urinary bladder distension. No visible ureteral calculus. 6. No evidence to suggest appendicitis or diverticulitis. A normal appendix is not definitely visible. 7. Mild lower lung opacities and small pleural effusions, see above. 8. Other details/findings discussed above.
--- NOTE | 2025-01-30 13:32 | P.PN_ITS ---
<Statement entered by Elliot Reilly MD - 01/30/25 20:01> Patient was evaluated and cared for in conjunction with an advanced practice practitioner. I personally examined the patient and reviewed the chart and all pertinent data including imaging, telemetry, and laboratory results. I discussed the patient in detail with the advanced practice practitioner. Please see their note for complete H&P testing result and agreed upon plan of care for the patient. Subjective 2 Subjective: Echocardiogram performed yesterday shows normal LV function, 60%. No regional wall motion abnormality. Moderate mitral regurgitation. She is sitting up in bed conversing with her family, appears much more alert than yesterday. No chest pain or shortness of breath. Vitals/I&O/Wt Last Vital Signs Temp 98.6 F 01/30/25 11:43 Pulse 78 01/30/25 11:43 Resp 16 01/30/25 11:43 BP 175/51 01/30/25 11:43 Pulse Ox 96 01/30/25 11:43 O2 Del Method Nasal Cannula 01/30/25 11:43 O2 Flow Rate 3 01/30/25 04:00 01/29/25 01/30/25 01/30/25 22:59 06:59 14:59 Intake Total 960.417 / 2891.667 993.75 / 2891.667 1050 / 1050 Output Total 800 / 800 Balance 960.417 / 2091.667 193.75 / 2091.667 1050 / 1050 Weight last 48 hrs Weight 159 lb Weight 126 lb Weight 128 lb Weight 153 lb Physical Exam 2 Const: COMMON NORMALS: no acute distress GENERAL APPEARANCE: cooperative and comfortable ORIENTATION/CONSCIOUSNESS: Yes awake and Yes oriented to person Chest: COMMONS NORMALS: normal inspection of the chest and normal palpation of entire chest wall CHEST: Yes Symmetrical chest wall rise Resp: COMMON NORMALS: normal respiratory effort, No retractions, No use of accessory muscles and clear to auscultation bilaterally EFFORT & INSPECTION: Yes symmetric chest movement AUSCULTATION: clear to auscultation bilaterally Cardio: COMMON NORMALS: regular rate, regular rhythm, S1 normal heart sound present, S2 normal heart sound present, No gallops present (Cardio), No clicks present (Cardio), No murmurs present (Cardio) and No rub (Cardio) RATE: r egular rate RHYTHM: regular rhythm HEART SOUNDS: S1 normal heart sound present and S2 normal heart sound present PERIPHERAL PULSES: radial pulses present Extremity: COMMON NORMALS: no pedal edema Neuro: COMMON NORMALS: moves all extremities SENSORIUM/ORIENTATION: Yes oriented to person Urinary Catheter Management: Yi: Cath Placed During This Visit: yes Reason for Continuing Indwelling Catheter: Other Urinary Catheter Date of Insertion: 01/30/25 Urinary Catheter Time of Insertion: 04:05 Data 01/30/25 06:04 01/30/25 06:04 Micro: Microbiology 01/28/25 20:34 Blood Culture - Preliminary Blood Gram Negative Rods 01/28/25 21:13 Urine Culture - Preliminary Urine,Clean Catch Gram Negative Rods 01/28/25 21:47 Blood Culture - Preliminary Blood Gram Negative Rods A&P Assessment and plan 1. Elevated troponin: 2. Congestive heart failure: 3. Hypertension: Plan: LV function remains the same with no regional wall motion abnormalities, no need for further investigation or intervention from cardiovascular perspective. We will sign off. Please call with questions. PDMP PDMP Reviewed: Not Reviewed Attestations 2 Medical Necessity Statement*: Per hospitalist Coding Level of Care Code Acute Code for [facility] Fwd Diagnoses Elevated troponin R79.89 Congestive heart failure I50.9 Hypertension I10
--- NOTE | 2025-01-30 13:55 | P.PN_ITS ---
Subjective 2 Subjective: seen this am patient able to wake up answer some questions on fentanyl patch 12.5 prather placed overnight urine with lot of sediment, 600 CC evacuated immediately Vitals/I&O/Wt Last Vital Signs Temp 98.6 F 01/30/25 11:43 Pulse 78 01/30/25 11:43 Resp 16 01/30/25 11:43 BP 175/51 01/30/25 11:43 Pulse Ox 96 01/30/25 11:43 O2 Del Method Nasal Cannula 01/30/25 11:43 O2 Flow Rate 3 01/30/25 04:00 01/29/25 01/30/25 01/30/25 22:59 06:59 14:59 Intake Total 960.417 / 1897.917 993.75 / 2891.667 1050 / 1050 Output Total 800 / 800 Balance 960.417 / 1897.917 193.75 / 2091.667 1050 / 1050 Weight last 48 hrs Weight 72.121 kg Weight 57.153 kg Weight 58.06 kg Weight 69.4 kg Physical Exam 2 Narrative: General: No acute distress, AO x,1, sleepy HEENT: PERRLA, pupils bilaterally equal and reactive, pallors not present Chest: Normal vesicular breath sounds, no added sounds, equal good air entry bilaterally CVS: S1-S2 regular, Abdomen: Soft, nontender, bowel sounds present Neuro: pt sleepy, able to move her extermities, unable to do a full exam, Urinary Catheter Management: Prather: Cath Placed During This Visit: yes Reason for Continuing Indwelling Catheter: Other Urinary Catheter Date of Insertion: 01/30/25 Urinary Catheter Time of Insertion: 04:05 Data 01/30/25 06:04 01/30/25 06:04 Micro: Microbiology 01/28/25 20:34 Blood Culture - Preliminary Blood Gram Negative Rods 01/28/25 21:13 Urine Culture - Preliminary Urine,Clean Catch Gram Negative Rods 01/28/25 21:47 Blood Culture - Preliminary Blood Gram Negative Rods A&P Assessment and plan 1. Sepsis secondary to UTI: 2. UTI (urinary tract infection): 3. Dementia: Plan: #1 Sepsis secondary to suspected urinary tract infection Clinical picture consistent with sepsis: febrile to 103.2?F, tachycardic, hypotensive, and altered, with elevated lactate and procalcitonin. UA strongly positive. Blood and urine cultures have been obtained. Received 1g IV Rocephin in the ED ? continuing empiric IV ceftriaxone pending culture. Continue fluid resuscitation at 125 mL/hr with close hemodynamic monitoring. Will repeat lactic acid in am. Monitor for clinical signs of source control failure or need for broader coverage. #2 Acute encephalopathy No focal deficits or imaging findings concerning for acute stroke; CT head negative. ABG does not suggest CO2 retention or significant metabolic derangement. Will hold opioids at this time; fentanyl patch has been removed. Monitor neurologic status closely. If no improvement, will reassess need for further imaging or EEG. #3 Hypotension and fluid status in setting of CHF Blood pressure has been soft but responsive to fluids. No signs of agustina pulmonary edema but clinically appears volume-expanded (lower extremity edema, subtle JVD, systolic murmur). Chest X-ray without infiltrate or overt congestion. Plan is to cautiously continue fluids for now (125 mL/hr), reassess volume status q4h, and consider Lasix PRN if signs of overload. Monitor daily weights, I/Os, and BNP trend if needed. #4 Opioid management On chronic 50 mcg/hr fentanyl patch, likely contributing to AMS and hypotension. Patch has been removed. Will hold further opioids for now. Re-evaluate pain control needs as mental status improves. #5 Thrombocytopenia Platelet count decreased from prior 226 to 132 on admission. Likely reactive in setting of infection, but will trend CBC. No evidence of bleeding or petechiae. Not on anticoagulation. Monitor for DIC if clinical status worsens. #6 Code status / goals of care Family elected DNR status but desires full medical treatment otherwise. No formal advance directive or POA on file; son and his are primary decision-makers. ICU-level care acceptable, but CPR not desired. Documented in EMR and communicated to nursing. 01/30/2025 #Gram neg bacteremia #Thrombocytopenia #Sepsis present on admission #Leukocytosis #Pyelonephritis #B/L hydronephrosis due to bladder outlet obstruction #Urinary retention #Pain management -Continue aspirin buspirone, olanzapine but at reduced dose of 2.5 twice daily ? Hold quetiapine at this time ? Continue IV Zosyn ? Patient does have evidence of pyelonephritis. ? Has urinary retention. 600 urine output after Prather placement. ? Continue fentanyl patch 12 mcg - Placed on stool softener MiraLAX 17 daily, docusate senna daily ? Repeat blood cultures today and every 48 hours. - Continue heparin SQ twice daily for DVT prophylaxis ? I will add vancomycin for broad-spectrum empiric coverage. - Check MRSA nares - Updated family at bedside DNR / DNI PDMP PDMP Reviewed: Last Reviewed 01/29/25 16:36 by Paula Boo MD Attestations 2 Medical Necessity Statement*: gram neg bacteremia 2/2 to UTI pyelonephritis urinary retention Diagnoses Sepsis secondary to UTI A41.9; N39.0 UTI (urinary tract infection) N39.0 Dementia F03.90
--- NOTE | 2025-01-30 14:22 | PHA.VACGOAL ---
Vancomycin Goal - Goal Vancomycin Goal:: 10-15 mg/L Vancomycin Indication:: Other - Therapy Current therapy:: Pip/Tazo Day of therpy:: Day []of [] . Actual body weight (kg): 159 lb - Data Labs: WBC 31.36 10^3/uL (3.29-11.43) H* 01/30/25 06:04 RBC 3.65 10^6/uL (3.85-5.65) L 01/30/25 06:04 Hgb 10.80 g/dL (11.27-16.99) L 01/30/25 06:04 Hct 32.9 % (36-47) L 01/30/25 06:04 MCV 90.1 fl (85-98) 01/30/25 06:04 MCH 29.6 pg (27-33) 01/30/25 06:04 MCHC 32.8 g/dL (30-55) 01/30/25 06:04 RDW 13.2 % (12.1-15.1) 01/30/25 06:04 Sodium 138 mmol/L (136-145) 01/30/25 06:04 Potassium 4.3 mmol/L (3.5-5.1) 01/30/25 06:04 Chloride 106 mmol/L (98-107) 01/30/25 06:04 Carbon Dioxide 23 mmol/L (22-29) 01/30/25 06:04 Anion Gap 13.3 (5-19) 01/30/25 06:04 BUN 21 mg/dL (8-23) 01/30/25 06:04 Creatinine 0.9 mg/dL (0.5-0.9) 01/30/25 06:04 GFR Calculation Not Reportable 01/30/25 06:04 Last dialysis session:: N/A Treatment plan:: new consult Regimen:: LOADING DOSE OF 1000 MG X 1 MAINTENANCE DOSE OF 500 MG Q12H PER DOSING PROTOCOL Follow up:: WILL CONTINUE TO MONITOR AND FOLLOW UP DAILY
[2025-01-30 14:52] LABS: Procalcitonin 30.02 ng/mL (0-0.5)
[2025-01-30 20:19] LABS: MRSA PCR OZH (swab) NOT DETECTED (Not Detecte)
[2025-01-31] VITALS: BP 146/72; PULSE 79; RESP 16; TEMP 37.1; O2SAT 95
[2025-01-31] MEDS: heparin 5,000 unit/mL INJ 1 mL 5000 UNIT SUBCUT ×2 (01:10→14:59)
[2025-01-31] MEDS: piperacillin-tazobactam 3.375 GM in sodium chloride 0.9% (plus) 50 ML IV ×3 (01:10→17:03)
[2025-01-31] MEDS: water for injection-sterile 10 ML 2.5 ML (02:32)
[2025-01-31] MEDS: vancomycin 500 MG in sodium chloride 0.9% (plus) 100 ML 200 MG IV ×2 (03:17→14:59)
[2025-01-31 04:00] VITALS: BP 189/91; PULSE 90; RESP 18; TEMP 36.9; O2SAT 92
[2025-01-31 05:17] LABS: Hematocrit 33.6 % (36-47); Hemoglobin 11.30 g/dL (11.27-16.99); Mean Corpuscular HGB Conc 33.6 g/dL (30-55); Mean Corpuscular Hemoglobin 29.2 pg (27-33); Mean Corpuscular Volume 86.8 fl (85-98); Nucleated Red Blood Cells % 0 %; Platelet Count 90 10^3/cmm (157-399); Red Blood Count 3.87 10^6/uL (3.85-5.65); White Blood Count 29.31 10^3/uL (3.29-11.43)
[2025-01-31 05:44] LABS: Alanine Aminotransferase 9 U/L (0-33); Albumin Level 3.0 g/dL (3.5-5.2); Alkaline Phosphatase 122 U/L (35-105); Anion Gap 16.6 (5-19); Aspartate Amino Transferase 17 U/L (0-32); Blood Urea Nitrogen 11 mg/dL (8-23); Calcium 8.7 mg/dL (8.5-10.5); Carbon Dioxide 20 mmol/L (22-29); Chloride 102 mmol/L (98-107); Creatinine Clr Calc Pharmacy 47.4505; Globulin 2.7 g/dL (1.3-4.6); Glucose 115 mg/dL (65-115); Magnesium 2.0 mg/dL (1.7-2.3); Osmolality Calculated 280 mOsm/kg (285-295); Potassium 3.6 mmol/L (3.5-5.1); Sodium 135 mmol/L (136-145); Total Protein 5.7 g/dL (6.6-8.7)
[2025-01-31 08:00] VITALS: BP 179/97; PULSE 79; RESP 16; TEMP 36.4; O2SAT 92
[2025-01-31] MEDS: polyethylene glycol 3350 Pkt 17 gm PO (09:19)
[2025-01-31] MEDS: sennosides-docusate Tablet 1 TAB PO ×2 (09:19→17:03)
--- NOTE | 2025-01-31 10:48 | PC.SOCIAL ---
IMM Updated Updated pt's family on IMM. No questions voiced. Provided pt a copy. Initialed, dated, & timed a copy & placed in chart.
[2025-01-31 12:00] VITALS: BP 161/78; PULSE 118; RESP 16; TEMP 36.7; O2SAT 91
--- NOTE | 2025-01-31 14:42 | P.PN_ITS ---
Subjective 2 Subjective: Seen this morning. Patient awake alert laying in bed. Able to tell me she is not in pain at this time. Son at bedside. Repeat blood cultures negative to date WBC count 29,000 this morning. She had a bowel movement overnight. Vitals/I&O/Wt Last Vital Signs Temp 98.0 F 01/31/25 12:00 Pulse 118 H 01/31/25 12:00 Resp 16 01/31/25 12:00 BP 161/78 01/31/25 12:00 Pulse Ox 91 01/31/25 12:00 O2 Del Method Room Air 01/31/25 12:00 O2 Flow Rate 3 01/31/25 08:00 01/30/25 01/31/25 01/31/25 22:59 06:59 14:59 Intake Total 1100 / 2150 1160 / 3310 760.0 / 760.0 Output Total 700 / 700 1450 / 2150 Balance 400 / 1450 -290 / 1160 760.0 / 760.0 Weight last 48 hrs Weight 72.575 kg Weight 72.121 kg Physical Exam 2 Narrative: General: No acute distress, AO to self. Appears comfortable at this time. HEENT: PERRLA, pupils bilaterally equal and reactive, pallors not present Chest: Normal vesicular breath sounds, no added sounds, equal good air entry bilaterally CVS: S1-S2 regular, Abdomen: Soft, nontender, bowel sounds present Extremities: No edema bilateral lower extremities Urinary Catheter Management: Yi: Cath Placed During This Visit: yes Reason for Continuing Indwelling Catheter: Required Immobilization for Trauma or Surgery or Anesthesia Urinary Catheter Date of Insertion: 01/30/25 Urinary Catheter Time of Insertion: 04:05 Data 01/31/25 04:51 01/31/25 04:51 Micro: Microbiology 01/28/25 21:13 Urine Culture - Final Urine,Clean Catch Escherichia coli 01/28/25 21:47 Blood Culture - Final Blood Escherichia coli 01/28/25 20:34 Blood Culture - Final Blood Escherichia coli 01/30/25 15:17 Blood Culture - Preliminary Blood SPECIMEN COLLECTED 01/30/25 15:17 Blood Culture - Preliminary Blood SPECIMEN COLLECTED A&P Assessment and plan 1. Sepsis secondary to UTI: 2. UTI (urinary tract infection): 3. Dementia: Plan: #1 Sepsis secondary to suspected urinary tract infection Clinical picture consistent with sepsis: febrile to 103.2?F, tachycardic, hypotensive, and altered, with elevated lactate and procalcitonin. UA strongly positive. Blood and urine cultures have been obtained. Received 1g IV Rocephin in the ED ? continuing empiric IV ceftriaxone pending culture. Continue fluid resuscitation at 125 mL/hr with close hemodynamic monitoring. Will repeat lactic acid in am. Monitor for clinical signs of source control failure or need for broader coverage. #2 Acute encephalopathy No focal deficits or imaging findings concerning for acute stroke; CT head negative. ABG does not suggest CO2 retention or significant metabolic derangement. Will hold opioids at this time; fentanyl patch has been removed. Monitor neurologic status closely. If no improvement, will reassess need for further imaging or EEG. #3 Hypotension and fluid status in setting of CHF Blood pressure has been soft but responsive to fluids. No signs of agustina pulmonary edema but clinically appears volume-expanded (lower extremity edema, subtle JVD, systolic murmur). Chest X-ray without infiltrate or overt congestion. Plan is to cautiously continue fluids for now (125 mL/hr), reassess volume status q4h, and consider Lasix PRN if signs of overload. Monitor daily weights, I/Os, and BNP trend if needed. #4 Opioid management On chronic 50 mcg/hr fentanyl patch, likely contributing to AMS and hypotension. Patch has been removed. Will hold further opioids for now. Re-evaluate pain control needs as mental status improves. #5 Thrombocytopenia Platelet count decreased from prior 226 to 132 on admission. Likely reactive in setting of infection, but will trend CBC. No evidence of bleeding or petechiae. Not on anticoagulation. Monitor for DIC if clinical status worsens. #6 Code status / goals of care Family elected DNR status but desires full medical treatment otherwise. No formal advance directive or POA on file; son and his are primary decision-makers. ICU-level care acceptable, but CPR not desired. Documented in EMR and communicated to nursing. 01/30/2025 #Gram neg bacteremia #Thrombocytopenia #Sepsis present on admission #Leukocytosis #Pyelonephritis #B/L hydronephrosis due to bladder outlet obstruction #Urinary retention #Pain management -Continue aspirin buspirone, olanzapine but at reduced dose of 2.5 twice daily ? Hold quetiapine at this time ? Continue IV Zosyn ? Patient does have evidence of pyelonephritis. ? Has urinary retention. 600 urine output after Yi placement. ? Continue fentanyl patch 12 mcg - Placed on stool softener MiraLAX 17 daily, docusate senna daily ? Repeat blood cultures today and every 48 hours. - Continue heparin SQ twice daily for DVT prophylaxis ? I will add vancomycin for broad-spectrum empiric coverage. - Check MRSA nares - Updated family at bedside 01/31/2025 ?Second set blood culture negative to date ? Blood cultures from admission sensitivity is pending at this time ? MRSA nares negative. Will discontinue vancomycin ? Continue on Zosyn at this time. ? Continue on stool softener ? Patient seems to be comfortable with fentanyl 12.5 patch daily. Will continue the same at this time. Son at bedside endorses that she appears better today. ? Continue olanzapine 5 twice daily ? Continue current management. ?I will stop IV fluids today as patient has awake alert. She does take Lasix at home. -Secondary to urinary tension it is likely that patient will be discharging with a Yi catheter. However we will attempt a voiding trial prior to discharge. ? She will need to follow-up with urology as an outpatient after discharge. ?Will restart Coreg at reduced dose of 6.25 twice daily ? Stop IV fluids ? Restart home olanzapine, buspirone, aspirin, famotidine. DNR / DNI PDMP PDMP Reviewed: Last Reviewed 01/29/25 16:36 by Paula Boo MD Attestations 2 Medical Necessity Statement*: gm neg bacteremia Diagnoses Sepsis secondary to UTI A41.9; N39.0 UTI (urinary tract infection) N39.0 Dementia F03.90
[2025-01-31 16:00] VITALS: BP 154/91; PULSE 109; RESP 15; TEMP 36.7; O2SAT 90
[2025-01-31] MEDS: ondansetron 2 mg/ML SDV 2 mL 4 MG IVP (17:07)
[2025-01-31 21:19] VITALS: BP 132/98; PULSE 102; RESP 16; TEMP 36.6; O2SAT 94
[2025-02-01 00:26] VITALS: BP 134/86; PULSE 90; RESP 17; TEMP 36.4; O2SAT 94
[2025-02-01] MEDS: vancomycin 500 MG in sodium chloride 0.9% (plus) 100 ML 200 MG IV ×2 (01:18→12:32)
[2025-02-01] MEDS: heparin 5,000 unit/mL INJ 1 mL 5000 UNIT SUBCUT ×2 (01:19→12:33)
[2025-02-01] MEDS: piperacillin-tazobactam 3.375 GM in sodium chloride 0.9% (plus) 50 ML IV ×3 (01:19→17:27)
[2025-02-01 05:09] VITALS: BP 132/82; PULSE 88; RESP 17; TEMP 36.5; O2SAT 95
--- NOTE | 2025-02-01 06:36 | P.PN_ITS ---
Subjective 2 Subjective: Seen this morning. White count improved to 20,000 Son at bedside Patient slightly better. Appears dehydrated. Vitals/I&O/Wt Last Vital Signs Temp 97.7 F 02/01/25 05:09 Pulse 88 02/01/25 05:09 Resp 17 02/01/25 05:09 BP 132/82 02/01/25 05:09 Pulse Ox 95 02/01/25 05:09 O2 Del Method Room Air 01/31/25 16:00 O2 Flow Rate 3 01/31/25 08:00 01/31/25 01/31/25 02/01/25 14:59 22:59 06:59 Intake Total 1022.5 / 1022.5 417.5 / 1440.0 150 / 1590.0 Output Total 1450 / 1450 350 / 1800 Balance 1022.5 / 1022.5 -1032.5 / -10.0 -200 / -210.0 Weight last 48 hrs Weight 72.575 kg Weight 72.575 kg Physical Exam 2 Narrative: General: No acute distress, able to tell me her name. Opens her eyes occasionally. However is sleepy at this time. HEENT: PERRLA, pupils bilaterally equal and reactive, pallors not present Chest: Normal vesicular breath sounds, no added sounds, equal good air entry bilaterally CVS: S1-S2 regular, Abdomen: Soft, nontender, bowel sounds present Extremities: No edema bilateral lower extremities Urinary Catheter Management: Yi: Cath Placed During This Visit: yes Reason for Continuing Indwelling Catheter: Required Immobilization for Trauma or Surgery or Anesthesia Urinary Catheter Date of Insertion: 01/30/25 Urinary Catheter Time of Insertion: 04:05 Data 02/01/25 07:08 02/01/25 07:08 Micro: Microbiology 01/30/25 15:17 Blood Culture - Preliminary Blood NEGATIVE TO DATE 01/30/25 15:17 Blood Culture - Preliminary Blood NEGATIVE TO DATE 01/28/25 21:13 Urine Culture - Final Urine,Clean Catch Escherichia coli 01/28/25 21:47 Blood Culture - Final Blood Escherichia coli 01/28/25 20:34 Blood Culture - Final Blood Escherichia coli A&P Assessment and plan 1. Sepsis secondary to UTI: 2. UTI (urinary tract infection): 3. Dementia: 4. Gram-negative bacteremia: 5. Pyelonephritis: 6. Leukocytosis: 7. Urinary retention: 8. Indwelling Yi catheter present: Plan: #1 Sepsis secondary to suspected urinary tract infection Clinical picture consistent with sepsis: febrile to 103.2?F, tachycardic, hypotensive, and altered, with elevated lactate and procalcitonin. UA strongly positive. Blood and urine cultures have been obtained. Received 1g IV Rocephin in the ED ? continuing empiric IV ceftriaxone pending culture. Continue fluid resuscitation at 125 mL/hr with close hemodynamic monitoring. Will repeat lactic acid in am. Monitor for clinical signs of source control failure or need for broader coverage. #2 Acute encephalopathy No focal deficits or imaging findings concerning for acute stroke; CT head negative. ABG does not suggest CO2 retention or significant metabolic derangement. Will hold opioids at this time; fentanyl patch has been removed. Monitor neurologic status closely. If no improvement, will reassess need for further imaging or EEG. #3 Hypotension and fluid status in setting of CHF Blood pressure has been soft but responsive to fluids. No signs of agustina pulmonary edema but clinically appears volume-expanded (lower extremity edema, subtle JVD, systolic murmur). Chest X-ray without infiltrate or overt congestion. Plan is to cautiously continue fluids for now (125 mL/hr), reassess volume status q4h, and consider Lasix PRN if signs of overload. Monitor daily weights, I/Os, and BNP trend if needed. #4 Opioid management On chronic 50 mcg/hr fentanyl patch, likely contributing to AMS and hypotension. Patch has been removed. Will hold further opioids for now. Re-evaluate pain control needs as mental status improves. #5 Thrombocytopenia Platelet count decreased from prior 226 to 132 on admission. Likely reactive in setting of infection, but will trend CBC. No evidence of bleeding or petechiae. Not on anticoagulation. Monitor for DIC if clinical status worsens. #6 Code status / goals of care Family elected DNR status but desires full medical treatment otherwise. No formal advance directive or POA on file; son and his are primary decision-makers. ICU-level care acceptable, but CPR not desired. Documented in EMR and communicated to nursing. 01/30/2025 #Gram neg bacteremia #Thrombocytopenia #Sepsis present on admission #Leukocytosis #Pyelonephritis #B/L hydronephrosis due to bladder outlet obstruction #Urinary retention #Pain management -Continue aspirin buspirone, olanzapine but at reduced dose of 2.5 twice daily ? Hold quetiapine at this time ? Continue IV Zosyn ? Patient does have evidence of pyelonephritis. ? Has urinary retention. 600 urine output after Yi placement. ? Continue fentanyl patch 12 mcg - Placed on stool softener MiraLAX 17 daily, docusate senna daily ? Repeat blood cultures today and every 48 hours. - Continue heparin SQ twice daily for DVT prophylaxis ? I will add vancomycin for broad-spectrum empiric coverage. - Check MRSA nares - Updated family at bedside 01/31/2025 ?Second set blood culture negative to date ? Blood cultures from admission sensitivity is pending at this time ? MRSA nares negative. Will discontinue vancomycin ? Continue on Zosyn at this time. ? Continue on stool softener ? Patient seems to be comfortable with fentanyl 12.5 patch daily. Will continue the same at this time. Son at bedside endorses that she appears better today. ? Continue olanzapine 5 twice daily ? Continue current management. ?I will stop IV fluids today as patient has awake alert. She does take Lasix at home. -Secondary to urinary tension it is likely that patient will be discharging with a Yi catheter. However we will attempt a voiding trial prior to discharge. ? She will need to follow-up with urology as an outpatient after discharge. ?Will restart Coreg at reduced dose of 6.25 twice daily ? Stop IV fluids ? Restart home olanzapine, buspirone, aspirin, famotidine. DNR / DNI 02/01/2025 Second set of blood cultures negative to date Continue Zosyn Vancomycin discontinued yesterday. Continue IV fluids as patient appears very dehydrated today. Placed on normal saline 75 cc/h. Continue antibiotics for pyelonephritis and gram-negative bacteremia She will need at least 2 weeks of IV antibiotics. Recommend ID consultation prior to discharge. Patient is from assisted living facility however I spoke to son that she will likely need to go to a long term facility at discharge secondary to IV antibiotics and having a Yi catheter in place secondary to urinary tension. He is agreeable. Patient's mental status is not back to baseline yet.. PDMP PDMP Reviewed: Last Reviewed 01/29/25 16:36 by Paula Boo MD Attestations 2 Medical Necessity Statement*: Gram-negative bacteria, pyelonephritis. Diagnoses Sepsis secondary to UTI A41.9; N39.0 UTI (urinary tract infection) N39.0 Dementia F03.90 Gram-negative bacteremia R78.81 Pyelonephritis N12 Leukocytosis D72.829 Urinary retention R33.9 Indwelling Yi catheter present Z97.8
[2025-02-01 07:17] LABS: Hematocrit 35.8 % (36-47); Hemoglobin 12.40 g/dL (11.27-16.99); Mean Corpuscular HGB Conc 34.6 g/dL (30-55); Mean Corpuscular Hemoglobin 29.9 pg (27-33); Mean Corpuscular Volume 86.3 fl (85-98); Nucleated Red Blood Cells % 0 %; Platelet Count 112 10^3/cmm (157-399); Red Blood Count 4.15 10^6/uL (3.85-5.65); White Blood Count 20.77 10^3/uL (3.29-11.43)
[2025-02-01 07:33] LABS: Anion Gap 22.7 (5-19); Blood Urea Nitrogen 27 mg/dL (8-23); Calcium 8.9 mg/dL (8.5-10.5); Carbon Dioxide 14 mmol/L (22-29); Chloride 102 mmol/L (98-107); Creatinine Clr Calc Pharmacy 42.2997; Glucose 163 mg/dL (65-115); Magnesium 2.0 mg/dL (1.7-2.3); Osmolality Calculated 289 mOsm/kg (285-295); Potassium 3.7 mmol/L (3.5-5.1); Sodium 135 mmol/L (136-145)
[2025-02-01 08:00] VITALS: BP 140/80; PULSE 110; RESP 19; TEMP 37.7; O2SAT 91
[2025-02-01] MEDS: polyethylene glycol 3350 Pkt 17 gm PO (08:34)
[2025-02-01 12:00] VITALS: BP 134/84; PULSE 87; RESP 17; TEMP 36.8; O2SAT 94
[2025-02-01 16:00] VITALS: BP 137/82; PULSE 86; RESP 17; TEMP 36.7; O2SAT 95
--- NOTE | 2025-02-01 18:48 | PC.NURSE ---
Pt refused to wake up to take 1800 PO meds. Patients son at bedside and would like for us to reattempt this later tonight. This nurse re-timed medications.
[2025-02-01 20:00] VITALS: BP 132/88; PULSE 93; RESP 22; TEMP 36.5; O2SAT 96
--- NOTE | 2025-02-01 23:02 | PC.NURSE ---
This nurse attempted to wake patient to administer medications. Patient is difficult to arouse, vitals are stable and patients breathing is normal. This nurse non admin her meds in SEP and advised charge nurse JONAH Gautam made aware. This nurse will continue to monitor patient for remainder of shift.
[2025-02-02] VITALS (7 sets, daily range): BP systolic 113–146; BP diastolic 73–89; PULSE 72–96; RESP 18–23; TEMP 36.4–36.7; O2SAT 94–96
[2025-02-02 01:15] LABS: Hematocrit 34.2 % (36-47); Hemoglobin 11.30 g/dL (11.27-16.99); Mean Corpuscular HGB Conc 33.0 g/dL (30-55); Mean Corpuscular Hemoglobin 29.4 pg (27-33); Mean Corpuscular Volume 88.8 fl (85-98); Nucleated Red Blood Cells % 0 %; Platelet Count 103 10^3/cmm (157-399); Red Blood Count 3.85 10^6/uL (3.85-5.65); White Blood Count 13.59 10^3/uL (3.29-11.43)
[2025-02-02 01:28] LABS: Anion Gap 16.4 (5-19); Blood Urea Nitrogen 34 mg/dL (8-23); Calcium 8.7 mg/dL (8.5-10.5); Carbon Dioxide 20 mmol/L (22-29); Chloride 106 mmol/L (98-107); Creatinine Clr Calc Pharmacy 29.2844; Glucose 150 mg/dL (65-115); Magnesium 2.3 mg/dL (1.7-2.3); Osmolality Calculated 298 mOsm/kg (285-295); Potassium 3.4 mmol/L (3.5-5.1); Sodium 139 mmol/L (136-145)
[2025-02-02] MEDS: vancomycin 500 MG in sodium chloride 0.9% (plus) 100 ML 200 MG IV ×2 (02:06→14:51)
[2025-02-02] MEDS: piperacillin-tazobactam 3.375 GM in sodium chloride 0.9% (plus) 50 ML IV ×3 (02:06→16:22)
[2025-02-02] MEDS: heparin 5,000 unit/mL INJ 1 mL 5000 UNIT SUBCUT ×2 (02:07→14:52)
--- NOTE | 2025-02-02 12:51 | PC.NURSE ---
This nurse non-admitted 9:00 am po meds as patient is too lethargic and too much of an aspiration risk to take them. This nurse notified Dr. Goldsmith via voalte. No new orders given.
--- NOTE | 2025-02-02 19:42 | PC.NURSE ---
This nurse contacted Dr. Cramer due to patient being lethargic and sleeping since the morning of 02/01/25. This nurse explained concerns for patient being so lethargic, nurse explained to Dr. Cramer that patient woke up when nurse said their name but is very weak and there seems to be a slight facial droop on the right side. Patients right hand is weaker than left. Dr. Cramer said the days shift doctor should address the issue. Dr. Cramer asked the last time patients zyprexa was administered and nurse told him it was 0830 on 02/01/25, Nurse also explained patient had a 12.5 mcg fentanyl patch on right shoulder but that is a reduced dose compared to patients 50 mcg patch she receives at home. Dr. Cramer said to remove fentanyl patch. This nruse will continue to monitor patient through out remainder of shift.
--- NOTE | 2025-02-02 20:28 | PC.NURSE ---
This nurse removed 12.5 mg fentanyl patch from patients left shoulder at 2026. Removal and disposal was witness by tank chargerJONAH Gautam.
--- NOTE | 2025-02-02 21:24 | P.PN_ITS ---
Subjective 2 Subjective: Patient seen on rounds. Cannot wake up was not eating and was not taking medication because cannot wake up. Patient had gone to sleep since Monday into Monday and today Monday. Baseline change in mental status from infection has been compounded with Zyprexa. Vitals/I&O/Wt Last Vital Signs Temp 97.5 F L 02/02/25 20:00 Pulse 96 02/02/25 20:00 Resp 22 H 02/02/25 20:00 BP 139/79 02/02/25 20:00 Pulse Ox 94 02/02/25 20:00 O2 Del Method Room Air 02/02/25 20:00 O2 Flow Rate 3 01/31/25 08:00 02/02/25 02/02/25 02/02/25 06:59 14:59 22:59 Intake Total 150.000 / 350.000 50 / 50 150 / 200 Output Total 300 / 300 Balance -150.000 / 50.000 50 / 50 150 / 200 Weight last 48 hrs Weight 74.298 kg Weight 72.575 kg Physical Exam 2 Narrative: General: No acute distress, able to tell me her name. Opens her eyes occasionally. However is sleepy at this time. HEENT: PERRLA, pupils bilaterally equal and reactive, pallors not present Chest: Normal vesicular breath sounds, no added sounds, equal good air entry bilaterally CVS: S1-S2 regular, Abdomen: Soft, nontender, bowel sounds present Extremities: No edema bilateral lower extremities Urinary Catheter Management: Yi: Cath Placed During This Visit: yes Reason for Continuing Indwelling Catheter: Other Urinary Catheter Date of Insertion: 01/30/25 Urinary Catheter Time of Insertion: 04:05 Data 02/02/25 01:00 02/02/25 01:00 Micro: Microbiology 01/30/25 15:17 Blood Culture - Preliminary Blood NEGATIVE TO DATE 01/30/25 15:17 Blood Culture - Preliminary Blood NEGATIVE TO DATE 01/28/25 21:13 Urine Culture - Final Urine,Clean Catch Escherichia coli 01/28/25 21:47 Blood Culture - Final Blood Escherichia coli 01/28/25 20:34 Blood Culture - Final Blood Escherichia coli A&P Assessment and plan 1. Sepsis secondary to UTI: Patient with UTI with sepsis with remarkable change in mental status now compounded with sedating effects of Zyprexa - Continue vancomycin and Zosyn for the series helping white count had come down from 30,000-22,000 and today had come down to 13,000 - Patient had not eaten or done anything over the past 2 days since Monday because she is not able to wake up - Lacks a week was on Monday the 01/31/2025 when she received Zyprexa for agitation - Discontinue Zyprexa at this time 5 mg twice daily - Initiate gentle hydration of normal saline at 75 cc/h for patient who had not eaten or drank anything for the past 48 hours 2. UTI (urinary tract infection): Resolving UTI infection - Continue antibiotics as mentioned above 3. Dementia: History of dementia 4. Gram-negative bacteremia: Patient is with Gram negative bacteremia - Continue Zosyn at this time along with vancomycin until we see the offending organism identified 5. Pyelonephritis: Continue to treat with antibiotics of current care 6. Leukocytosis: Remarkable leukocytosis is resolving from 30,002 13,000 within 72 hours - Continue antibiotics - Initiated gentle hydration at this time 7. Urinary retention: Monitor urinary retention 8. Indwelling Yi catheter present: Draining fluid to gravity, tea mckeon in color Plan: Patient is with UTI with sepsis and noted to be resolving at this time continue antibiotics follow through with offending organism with its sensitivity - Once this is identified we will de-escalate antibiotics most likely will discontinue vancomycin. Change in mental status secondary to UTI with sepsis compounded with Zyprexa Continue current antibiotics but discontinue Zyprexa - Continue gentle hydration of normal saline. PDMP PDMP Reviewed: Last Reviewed 02/02/25 21:41 by Zulema Goldsmith MD Attestations 2 Medical Necessity Statement*: Gram-negative bacteria, pyelonephritis needing further optimization patient has woken up wants to treat and optimized prior to discharge patient will need at least 48 to 72 hours for care and for readiness to discharge. Diagnoses Sepsis secondary to UTI A41.9; N39.0 UTI (urinary tract infection) N39.0 Dementia F03.90 Gram-negative bacteremia R78.81 Pyelonephritis N12 Leukocytosis D72.829 Urinary retention R33.9 Indwelling Yi catheter present Z97.8 Time Spent (min) 35
[2025-02-03] MEDS: piperacillin-tazobactam 3.375 GM in sodium chloride 0.9% (plus) 50 ML IV ×3 (01:39→17:13)
[2025-02-03] MEDS: heparin 5,000 unit/mL INJ 1 mL 5000 UNIT SUBCUT ×2 (01:42→13:50)
[2025-02-03] MEDS: vancomycin 500 MG in sodium chloride 0.9% (plus) 100 ML 200 MG IV ×2 (01:42→13:50)
[2025-02-03 03:43] LABS: Hematocrit 34.2 % (36-47); Hemoglobin 11.20 g/dL (11.27-16.99); Mean Corpuscular HGB Conc 32.7 g/dL (30-55); Mean Corpuscular Hemoglobin 29.6 pg (27-33); Mean Corpuscular Volume 90.5 fl (85-98); Nucleated Red Blood Cells % 0 %; Platelet Count 139 10^3/cmm (157-399); Red Blood Count 3.78 10^6/uL (3.85-5.65); White Blood Count 11.76 10^3/uL (3.29-11.43)
[2025-02-03 04:00] VITALS: BP 142/84; PULSE 88; RESP 20; TEMP 36.5; O2SAT 91
[2025-02-03 07:52] VITALS: BP 111/74; PULSE 97; RESP 17; TEMP 36.7; O2SAT 96
--- NOTE | 2025-02-03 08:10 | PC.SOCIAL ---
IMM Update Pg. 2 of IMM updated and reviewed with patient, who verbalized understanding. Copy provided.
[2025-02-03 09:16] LABS: Anion Gap 17.2 (5-19); Blood Urea Nitrogen 36 mg/dL (8-23); Calcium 9.0 mg/dL (8.5-10.5); Carbon Dioxide 20 mmol/L (22-29); Chloride 107 mmol/L (98-107); Creatinine Clr Calc Pharmacy 35.2147; Glucose 122 mg/dL (65-115); Osmolality Calculated 302 mOsm/kg (285-295); Potassium 3.2 mmol/L (3.5-5.1); Sodium 141 mmol/L (136-145)
[2025-02-03 11:48] VITALS: BP 126/89; PULSE 89; RESP 16; TEMP 36.6; O2SAT 93
[2025-02-03 16:00] VITALS: BP 128/74; PULSE 95; RESP 17; TEMP 36.5; O2SAT 94
[2025-02-03] MEDS: sennosides-docusate Tablet 1 TAB PO (17:12)
[2025-02-03 20:00] VITALS: BP 143/81; PULSE 89; RESP 17; TEMP 36.6; O2SAT 95
--- NOTE | 2025-02-03 20:38 | P.PN_ITS ---
Subjective 2 Subjective: Patient is awake off of Zyprexa post barium. Not able to do anything very lethargic still falls asleep very often but not as bad as it was yesterday Vitals/I&O/Wt Last Vital Signs Temp 97.9 F 02/03/25 20:00 Pulse 89 02/03/25 20:00 Resp 17 02/03/25 20:00 BP 143/81 02/03/25 20:00 Pulse Ox 95 02/03/25 20:00 O2 Del Method Room Air 02/03/25 20:00 O2 Flow Rate 0 02/03/25 07:10 02/03/25 02/03/25 02/03/25 06:59 14:59 22:59 Intake Total 463.75 / 663.75 212.5 / 212.5 300 / 512.5 Output Total 275 / 275 Balance 188.75 / 388.75 212.5 / 212.5 300 / 512.5 Weight last 48 hrs Weight 75.342 kg Weight 74.298 kg Physical Exam 2 Narrative: Patient is doing much better awake but very lethargic. HEENT normocephalic atraumatic neck neck is supple cardiovascular heart is regular lungs are pretty much clear abdomen soft nontender nondistended unremarkable extremities are intact no edema has good pulses neurology has no focality lab studies lab studies reviewed and noted. Urinary Catheter Management: Yi: Cath Placed During This Visit: yes Reason for Continuing Indwelling Catheter: Acute Urinary Retention or Obstruction Urinary Catheter Date of Insertion: 01/30/25 Urinary Catheter Time of Insertion: 04:05 Data 02/03/25 03:12 02/03/25 08:40 A&P Assessment and plan 1. Indwelling Yi catheter present: 2. Urinary retention: 3. Leukocytosis: 4. Pyelonephritis: 5. Gram-negative bacteremia: 6. Sepsis secondary to UTI: 7. Dementia: Plan: Assessment and plan 1. Sepsis secondary to UTI: Patient with UTI with sepsis with remarkable change in mental status now compounded with sedating effects of Zyprexa - Continue vancomycin and Zosyn for the series helping white count had come down from 30,000-22,000 and today had come down to 13,000 - Patient had not eaten or done anything over the past 2 days since Monday because she is not able to wake up - Lacks a week was on Monday the 01/31/2025 when she received Zyprexa for agitation - Discontinue Zyprexa at this time 5 mg twice daily - Initiate gentle hydration of normal saline at 75 cc/h for patient who had not eaten or drank anything for the past 48 hours 2. UTI (urinary tract infection): Resolving UTI infection - Continue antibiotics as mentioned above 3. Dementia: History of dementia 4. Gram-negative bacteremia: Patient is with Gram negative bacteremia - Continue Zosyn at this time along with vancomycin until we see the offending organism identified 5. Pyelonephritis: Continue to treat with antibiotics of current care 6. Leukocytosis: Remarkable leukocytosis is resolving from 30,002 13,000 within 72 hours - Continue antibiotics - Initiated gentle hydration at this time 7. Urinary retention: Monitor urinary retention 8. Indwelling Yi catheter present: Draining fluid to gravity, tea mckeon in color PDMP PDMP Reviewed: Last Reviewed 02/02/25 21:41 by Zulema Goldsmith MD Attestations 2 Medical Necessity Statement*: Patient needs at least 3 days to try on the corners and be able to be assessed to feed self. Need for that time for optimization of care. Coding Level of Care Code Acute Code for Chg Fwd Diagnoses Indwelling Yi catheter present Z97.8 Urinary retention R33.9 Leukocytosis D72.829 Pyelonephritis N12 Gram-negative bacteremia R78.81 Sepsis secondary to UTI A41.9; N39.0 Dementia F03.90
[2025-02-04] VITALS: BP 118/76; PULSE 89; RESP 16; TEMP 36.9; O2SAT 93
[2025-02-04] MEDS: vancomycin 500 MG in sodium chloride 0.9% (plus) 100 ML 200 MG IV (01:46)
[2025-02-04] MEDS: heparin 5,000 unit/mL INJ 1 mL 5000 UNIT SUBCUT ×2 (01:46→15:22)
[2025-02-04] MEDS: piperacillin-tazobactam 3.375 GM in sodium chloride 0.9% (plus) 50 ML IV ×3 (01:47→16:50)
[2025-02-04 04:00] VITALS: BP 146/78; PULSE 89; RESP 16; TEMP 36.8; O2SAT 93
[2025-02-04 07:29] VITALS: BP 142/90; PULSE 83; RESP 32; TEMP 36.4; O2SAT 96
[2025-02-04] MEDS: polyethylene glycol 3350 Pkt 17 gm PO (09:19)
[2025-02-04 11:43] VITALS: BP 134/85; PULSE 83; RESP 22; TEMP 36.6; O2SAT 95
--- NOTE | 2025-02-04 12:44 | P.PN_ITS ---
Subjective 2 Subjective: Patient is more conscious but still very debilitated and weak. Vitals/I&O/Wt Last Vital Signs Temp 97.8 F 02/04/25 11:43 Pulse 83 02/04/25 11:43 Resp 22 H 02/04/25 11:43 BP 134/85 02/04/25 11:43 Pulse Ox 95 02/04/25 11:43 O2 Del Method Room Air 02/04/25 11:43 O2 Flow Rate 0 02/03/25 07:10 02/03/25 02/04/25 02/04/25 22:59 06:59 14:59 Intake Total 350 / 562.5 150 / 712.5 120 / 120 Output Total 450 / 450 850 / 1300 Balance -100 / 112.5 -700 / -587.5 120 / 120 Weight last 48 hrs Weight 73.482 kg Weight 75.342 kg Physical Exam 2 Narrative: General The patient is in no apparent distress today but very very lethargic but at least today better than yesterday patient able to open eyes and able to smile reflectively on things that have been discussed. HEENT normocephalic atraumatic neck neck is supple cardiovascular heart rate is regular lungs are pretty much clear abdomen soft nontender nondistended unremarkable extremities intact no edema has good pulses neurology he has no focality lab studies lab studies reviewed and noted. Urinary Catheter Management: Yi: Cath Placed During This Visit: yes Reason for Continuing Indwelling Catheter: Other Urinary Catheter Date of Insertion: 01/30/25 Urinary Catheter Time of Insertion: 04:05 Data 02/03/25 03:12 02/03/25 08:40 A&P Assessment and plan 1. Gram-negative bacteremia: 2. Sepsis secondary to UTI: 3. UTI (urinary tract infection): 4. COVID-19: 5. Indwelling Yi catheter present: 6. Urinary retention: 7. Leukocytosis: Plan: 1. Indwelling Yi catheter present: 2. Urinary retention: 3. Leukocytosis: 4. Pyelonephritis: 5. Gram-negative bacteremia: 6. Sepsis secondary to UTI: 7. Dementia: Plan: Assessment and plan Patient is more awake today than yesterday-February 03, 2025 Patient will need at least 2 to 3 days prior to discharge granted that patient is able to sit up in chair by herself and attempt to feed and eat. 1. Sepsis secondary to UTI: Patient with UTI with sepsis with remarkable change in mental status now compounded with sedating effects of Zyprexa - Continue vancomycin and Zosyn for the series helping white count had come down from 30,000-22,000 and today had come down to 13,000 - Patient had not eaten or done anything over the past 2 days since Monday because she is not able to wake up - Lacks a week was on Monday the 01/31/2025 when she received Zyprexa for agitation - Discontinue Zyprexa at this time 5 mg twice daily - Initiate gentle hydration of normal saline at 75 cc/h for patient who had not eaten or drank anything for the past 48 hours 2. UTI (urinary tract infection): Resolving UTI infection - Continue antibiotics as mentioned above 3. Dementia: History of dementia 4. Gram-negative bacteremia: Patient is with Gram negative bacteremia - Continue Zosyn at this time along with vancomycin until we see the offending organism identified 5. Pyelonephritis: Continue to treat with antibiotics of current care 6. Leukocytosis: Remarkable leukocytosis is resolving from 30,002 13,000 within 72 hours - Continue antibiotics - Initiated gentle hydration at this time 7. Urinary retention: Monitor urinary retention 8. Indwelling Yi catheter present: Draining fluid to gravity, tea mckeon in color 9. Activity PDMP PDMP Reviewed: Last Reviewed 02/02/25 21:41 by Zulema Goldsmith MD Attestations Medical Necessity Statement*: Patient needs at least 2-3 days to try on the corners and be able to be assessed to feed self. Need for that time for optimization of care. 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
--- NOTE | 2025-02-04 15:23 | PICC.NOTE ---
Referred to vascular access nurse for IV access due to poor access and multiple failed attempts at IV. 20 gauge peripheral IV started to left forearm x 1 stick using ultrasound guidance. Good blood return noted and flushed without difficulty. Report given to bedside nurse, Nadira.
[2025-02-04 15:50] VITALS: BP 131/84; PULSE 81; RESP 20; TEMP 36.7; O2SAT 94
[2025-02-04] MEDS: sennosides-docusate Tablet 1 TAB PO (16:50)
[2025-02-04 20:12] VITALS: BP 151/76; PULSE 80; RESP 17; TEMP 36.4; O2SAT 94
[2025-02-05] VITALS (8 sets, daily range): BP systolic 134–152; BP diastolic 67–105; PULSE 69–93; RESP 15–34; TEMP 36.4–36.8; O2SAT 93–98
[2025-02-05] MEDS: piperacillin-tazobactam 3.375 GM in sodium chloride 0.9% (plus) 50 ML IV ×3 (00:52→18:03)
[2025-02-05] MEDS: heparin 5,000 unit/mL INJ 1 mL 5000 UNIT SUBCUT ×2 (01:52→14:43)
[2025-02-05] MEDS: sennosides-docusate Tablet 1 TAB PO ×2 (05:20→18:03)
[2025-02-05] MEDS: polyethylene glycol 3350 Pkt 17 gm PO (09:53)
--- NOTE | 2025-02-05 09:53 | XRR_ITS ---
PROCEDURE INFORMATION: Exam: XR Chest Exam date and time: 02/05/2025 10:30 AM Age: 89 years old Clinical indication: Shortness of breath; Additional info: SOB TECHNIQUE: Imaging protocol: Radiologic exam of the chest. Views: 1 view. COMPARISON: CR (CHEST, ) 01/28/2025 8:17 PM FINDINGS: Lungs: Redemonstrated emphysematous changes in the lungs bilaterally. New bilateral pleural effusions [id number] with overlying lung compression. Mild bronchovascular and interstitial opacities bilaterally. Pleural spaces: See Lungs finding. No sizable pneumothorax. Heart/Mediastinum: The cardiomediastinal silhouette is stable and mildly enlarged. Vasculature: Calcifications of the aortic arch. Bones/joints: Unremarkable. XR/XR chest 1V portable [id number] IMPRESSION: Cardiomegaly with findings suggesting fluid overload including mild interstitial pulmonary edema and bilateral pleural effusions [id number] with overlying lung compression.
--- NOTE | 2025-02-05 10:08 | PC.SOCIAL ---
IMM Update pg 2 of IMM Updated and reviewed w/ patients son. Copy provided and copy dated, initialed and placed in chart.
--- NOTE | 2025-02-05 15:26 | PC.OT ---
OT TREATMENT ATTEMPTED; PATIENT SLEEPING SOUNDLY. INFORMATION GATHERED FROM SON. WILL ATTEMPT AGAIN TOMORROW
--- NOTE | 2025-02-05 19:37 | P.PN_ITS ---
Subjective 2 Subjective: Patient had done remarkably well with being 1 -day compared to yesterday for the alertness and conversant with everybody but still quite very debilitated and not actually getting enough nutrients on on to support her. Patient though in this day was able to feed some and attempts to feed while somebody else eats. Goal is to have patient at least been able to sit up to feed self and be able to have some portion of food in her to justify that she can be discharged and be able to maintain oral intake very important. Vitals/I&O/Wt Last Vital Signs Temp 97.9 F 02/05/25 16:00 Pulse 86 02/05/25 16:00 Resp 15 02/05/25 16:00 BP 152/96 02/05/25 16:00 Pulse Ox 93 02/05/25 16:00 O2 Del Method Room Air 02/05/25 16:00 O2 Flow Rate 0 02/03/25 07:10 02/05/25 02/05/25 02/05/25 06:59 14:59 22:59 Intake Total 983.75 / 1623.75 1290 / 1290 370 / 1660 Output Total 300 / 700 400 / 400 300 / 700 Balance 683.75 / 923.75 890 / 890 70 / 960 Weight last 48 hrs Weight 73.482 kg Weight 73.482 kg Physical Exam 2 Narrative: Generally patient is in no distress sitting up in bed goal is to start getting out of bed HEENT normocephalic Neck neck is supple Cardiovascular heart rate is regular Lungs are clear Her abdomen is soft nontender nondistended unremarkable extremities are intact Neurology has no focality Urinary Catheter Management: Yi: Cath Placed During This Visit: yes Reason for Continuing Indwelling Catheter: Required Immobilization for Trauma or Surgery or Anesthesia Urinary Catheter Date of Insertion: 01/30/25 Urinary Catheter Time of Insertion: 04:05 Data 02/03/25 03:12 02/03/25 08:40 Micro: Microbiology 02/05/25 05:29 Blood Culture - Preliminary Blood SPECIMEN COLLECTED 02/04/25 20:55 Blood Culture - Preliminary Blood SPECIMEN COLLECTED 01/30/25 15:17 Blood Culture - Final Blood NO GROWTH AFTER 5 DAYS 01/30/25 15:17 Blood Culture - Final Blood NO GROWTH AFTER 5 DAYS A&P Assessment and plan 1. Leukocytosis: Leukocytosis resolved with treatment of UTI with sepsis with antibiotics 2. Pyelonephritis: Patient does have pyelonephritis and this is also resolving patient is doing well in recovery 3. Gram-negative bacteremia: Patient has gram-negative bacteremia from the urinary source we will continue to follow through and monitor patient will not need to be on IV antibiotics for 2 weeks if she can tolerate Levaquin at the time of discharge Patient to be on antibiotics for a total of 2 weeks with Levaquin and Levaquin is bioequivalent oral and IV equivalent. 4. UTI (urinary tract infection): Continue antibiotics as in gram-negative bacteremia 5. 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 Physical therapy and Occupational Therapy consulted to continue and initiate PT OT Plan: See above and GI and DVT prophylaxis also in place PDMP PDMP Reviewed: Last Reviewed 02/02/25 21:41 by Zulema Goldsmith MD Attestations 2 Medical Necessity Statement*: Patient has complaints medical problem to the part of recovery and with critical illness myopathy that is severe requiring optimization of care and allowing patient to be able to feed patient is only awake and alert as of yesterday and got better today will follow through in the next 2 days for a tentative discharge Coding Level of Care Code 61558 Diagnoses Leukocytosis D72.829 Pyelonephritis N12 Gram-negative bacteremia R78.81 UTI (urinary tract infection) N39.0 Confusion R41.0 Critical illness myopathy G72.81 Time Spent (min) 30
[2025-02-06] VITALS (7 sets, daily range): BP systolic 140–192; BP diastolic 77–111; PULSE 69–100; RESP 15–17; TEMP 36.3–37.1; O2SAT 91–98
[2025-02-06] MEDS: piperacillin-tazobactam 3.375 GM in sodium chloride 0.9% (plus) 50 ML IV ×3 (00:19→17:25)
[2025-02-06] MEDS: heparin 5,000 unit/mL INJ 1 mL 5000 UNIT SUBCUT ×2 (02:05→14:43)
[2025-02-06] MEDS: sennosides-docusate Tablet 1 TAB PO ×2 (05:43→17:25)
[2025-02-06] MEDS: FUROsemide 10 mg/mL SDV 10mL 60 MG IVP (11:44)
[2025-02-06] MEDS: multivitamin therapeutic Tablet 1 TAB PO (11:44)
[2025-02-06 15:15] LABS: Creatinine Clr Calc Pharmacy 42.7851
--- NOTE | 2025-02-06 18:02 | P.PN_ITS ---
Subjective 2 Medications: Medication Review Details: Patient seen weaker today than yesterday. Appetite is not up I started multivitamin today for care. Vitals/I&O/Wt Last Vital Signs Temp 97.8 F 02/06/25 16:00 Pulse 72 02/06/25 16:00 Resp 15 02/06/25 16:00 BP 161/82 02/06/25 16:00 Pulse Ox 98 02/06/25 16:00 O2 Del Method Room Air 02/06/25 16:00 O2 Flow Rate 0 02/03/25 07:10 02/06/25 02/06/25 02/06/25 06:59 14:59 22:59 Intake Total 300 / 2010 170 / 170 250 / 420 Output Total 700 / 1400 Balance -400 / 610 170 / 170 250 / 420 Weight last 48 hrs Weight 74.389 kg Weight 73.482 kg Physical Exam 2 Narrative: Generally patient looks very tired appearing and also sleepy. HEENT normocephalic atraumatic neck neck is supple cardiovascular heart rate is regular lungs are pretty much clear abdomen soft nontender nondistended unremarkable extremities are intact no edema has good pulses neurology has no focality lab studies lab studies reviewed and noted. Urinary Catheter Management: Yi: Cath Placed During This Visit: yes Reason for Continuing Indwelling Catheter: Required Immobilization for Trauma or Surgery or Anesthesia Urinary Catheter Date of Insertion: 01/30/25 Urinary Catheter Time of Insertion: 04:05 Data 02/03/25 03:12 02/06/25 14:26 Micro: Microbiology 02/05/25 05:29 Blood Culture - Preliminary Blood NEGATIVE TO DATE 02/04/25 20:55 Blood Culture - Preliminary Blood NEGATIVE TO DATE A&P Assessment and plan 1. CHF (congestive heart failure): 2. Critical illness myopathy: 3. Indwelling Yi catheter present: 4. Urinary retention: 5. Leukocytosis: 6. Pyelonephritis: 7. Gram-negative bacteremia: 8. Sepsis secondary to UTI: Plan: 1. 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 Physical therapy and Occupational Therapy consulted to continue and initiate PT OT 3. Leukocytosis: Leukocytosis resolved with treatment of UTI with sepsis with antibiotics 4. Pyelonephritis: Patient does have pyelonephritis and this is also resolving patient is doing well in recovery 5. Gram-negative bacteremia: Patient has gram-negative bacteremia from the urinary source we will continue to follow through and monitor patient will not need to be on IV antibiotics for 2 weeks if she can tolerate Levaquin at the time of discharge Patient to be on antibiotics for a total of 2 weeks with Levaquin and Levaquin is bioequivalent oral and IV equivalent. Continue antibiotics 4. UTI (urinary tract infection): Continue antibiotics as in gram-negative bacteremia 5. Confusion: Cleared Patient is with change in mental status secondary to sepsis and patient now is recovering with no confusion anymore PDMP PDMP Reviewed: Last Reviewed 02/02/25 21:41 by Zulema Goldsmith MD Attestations 2 Medical Necessity Statement*: Patient is with critical illness myopathy and does not have much appetite to eat and could not even lift the finger to put in the mouth because of severe weakness patient also have CHF that is being treated now with cardiology consultation echocardiogram ordered and pending. Need a couple of days for optimization of care. Coding Level of Care Code 62741 Diagnoses CHF (congestive heart failure) I50.9 Critical illness myopathy G72.81 Indwelling Yi catheter present Z97.8 Urinary retention R33.9 Leukocytosis D72.829 Pyelonephritis N12 Gram-negative bacteremia R78.81 Sepsis secondary to UTI A41.9; N39.0 Time Spent (min) 30
[2025-02-07] VITALS: BP 157/79; PULSE 95; RESP 17; TEMP 36.9; O2SAT 97
[2025-02-07] MEDS: piperacillin-tazobactam 3.375 GM in sodium chloride 0.9% (plus) 50 ML IV ×2 (00:16→09:23)
[2025-02-07] MEDS: heparin 5,000 unit/mL INJ 1 mL 5000 UNIT SUBCUT (03:10)
[2025-02-07 04:00] VITALS: BP 148/69; PULSE 90; RESP 17; TEMP 37; O2SAT 93
[2025-02-07 07:54] VITALS: BP 174/99; PULSE 108; RESP 32; TEMP 36.6; O2SAT 95
[2025-02-07] MEDS: polyethylene glycol 3350 Pkt 17 gm PO (09:23)
[2025-02-07 11:27] VITALS: BP 124/87; PULSE 96; RESP 28; TEMP 36.5; O2SAT 94
--- NOTE | 2025-02-07 14:02 | PM.DCS ---
Discharge Providers Date of Admission: 01/28/25 22:23 Date of Discharge: February 07, 2025 Attending Provider at Admission: Liz Romo Attending Provider at Discharge: Zulema Goldsmith MD Primary Care Provider: Ezequiel Lynch MD Diagnoses at Discharge Discharge Diagnosis 1. CHF (congestive heart failure): 2. Critical illness myopathy: 3. Indwelling Yi catheter present: 4. Urinary retention: 5. Leukocytosis: 6. Pyelonephritis: 7. Gram-negative bacteremia: 8. Sepsis secondary to UTI: Reason for Visit Reason for Visit: AMS Hospital Course Hospital Course 89-year-old female with a history of dementia, congestive heart failure, hypertension, and chronic pain managed with a fentanyl patch, who was brought in by her son for acute change in mental status. Per family, the patient had been doing relatively well as recently as the afternoon prior to admission. She had been seen by her primary care physician, Dr. Lynch, on January 21 for routine dementia follow-up, and her condition was described as stable at that time. On the evening of presentation, however, her son who also helps manage the assisted living facility where she resides noted sudden onset of confusion, inability to communicate coherently, and diaphoresis around 5:30 PM. He reports that earlier that same day she had been interactive and oriented to her usual baseline. At the time of symptom onset, her verbal output was described as nonsensical, and she was unable to follow commands or speak intelligibly. The family was concerned for a possible stroke and brought her to the emergency department. On arrival to the ED, she was febrile to 103.2?F, tachycardic with a pulse of 126 bpm, and tachypneic with a respiratory rate of 25. Initial blood pressure was 178/97 but later trended down to a low of 88/71, with current vitals showing borderline hypotension at 102/62. Notably, she does not typically require supplemental oxygen and has no known history of chronic pulmonary disease, but appeared clinically congested on exam with bilateral lower extremity edema. Auscultation revealed a systolic murmur, likely representing underlying valvular disease such as aortic stenosis, though no prior echocardiogram was available for review. She was found to have a 50 mcg/hr fentanyl patch in place, which was removed given her borderline blood pressures. Laboratory studies were notable for a lactic acid of 3.8 initially, with minimal downtrend to 3.2 after 2L of IV fluids. Procalcitonin was elevated at 4.88, suggesting a bacterial source. CBC showed a WBC of 7.9, Hgb 14, Hct 41.7, and platelets 132, representing a significant drop from her baseline of 226 earlier this year. BMP was within normal limits with a creatinine of 0.8 and BUN of 13. Anion gap was elevated at 19.9. ABG revealed mild respiratory alkalosis with metabolic compensation (pH 7.42, pCO2 30.2, HCO3 19.8). UA was strongly suggestive of infection, with 4+ bacteria, over 100 WBCs, positive leukocyte esterase and nitrites, and 3+ protein. Chest X-ray showed no acute infiltrates, only mild emphysematous changes and cardiomegaly. CT head showed no evidence of acute intracranial pathology. A respiratory viral panel was negative. In the ED, she received 1g IV Rocephin, 1g IV Tylenol, and approximately 2 liters of normal saline. Despite this, her blood pressure remained soft, and her mental status had not significantly improved at the time of admission. Family has elected DNR status but would like full medical care including ICU-level support if needed. Patient never had a white count coming to the hospital and never had 1 either did spike fever on presentation. Patient was noted to have a gram-negative bacteremia significant for urinary source of E. coli. Patient had been on vancomycin and Zosyn Zosyn to cover the bacteremia gram-negative and patient had had a course of this for 10 days. At this time of discharge to hospice I have elected to have Levaquin that is sensitive to E. coli for another 7 days. Is needed minimum of 4 additional days to make a total of 14 days. I will now leave doxycycline there for another 10 days to cover for any empiric gram-positive. Patient had been on vancomycin through this time. Patient had had diastolic and systolic heart failure and now has had acute on chronic heart failure. Lasix has been given and cardiology consulted. Echocardiogram obtained not to long ago and a new echo had been ordered and then 1 recently ordered is pending. Family wanted to go hospice on this patient who had developed a failure to thrive and and now will be discharged back to her long-term with hospice. Patient medication at all ordered and available for her to take and at this time patient is transferred to hospice care.. Is good to know that patient had been afebrile for more than 7 days. Patient just got no critical illness myopathy and needing to feed self assisted or unassisted and increase activity because of much debility patient discharge will continue PT OT family had discussed with the team who had related medical course and also everything the family need to know for an informed consent to do or carry on a decision. If patient family wanted to continue with PT OT he has stopped them and as long as he is as patient tolerates. Physical Exam Narrative: Patient is truly debilitated and weak appearing and can hardly get much speech from the mouth to be understandable. HEENT normocephalic/atraumatic neck neck is supple cardiovascular heart rate is regular lungs are pretty much clear abdomen soft nontender nondistended unremarkable extremities are intact no edema has good pulses neurology has no focality lab studies lab studies reviewed and noted. Urinary Catheter Management: Yi: Cath Placed During This Visit: yes Reason for Continuing Indwelling Catheter: Required Immobilization for Trauma or Surgery or Anesthesia Urinary Catheter Date of Insertion: 01/30/25 Urinary Catheter Time of Insertion: 04:05 Discharge Data Studies Completed and Pending Completed Studies During Hospitalization Category Date Time Status CT abdomen pelvis wo con [id number] Routine Cat Scan 01/30/25 08:[address] head wo con* [id number] Stat Cat Scan 01/28/25 20:15 Completed CXRP [XR chest 1V portable [id number]] Stat Exams 02/05/25 09:53 Completed XR chest 1V portable [id number] Stat Exams 01/28/25 20:15 Completed CV. echo complete* [id number] Stat Ultrasound 01/29/25 09:48 Completed Pending at discharge Category Date Time Status Blood Culture Stat Lab 02/04/25 20:55 Results Radiology Impressions Head CT 01/28/25 20:15 IMPRESSION: 1. Negative for intracranial hemorrhage or mass effect. 2. Moderate diffuse white matter disease likely reflecting chronic microvascular ischemic changes. 3. Bilateral punctate benign basal ganglia calcifications. Abdomen/Pelvis CT 01/30/25 08:00 IMPRESSION: 1. Large amount of stool in the rectum and distal sigmoid colon, with prominent rectal distension. The appearance raises strong suspicion for fecal impaction. See above. 2. No free air or other significant bowel distention. 3. Mild perinephric stranding and fluid bilaterally, see above discussion. 4. Somewhat distended urinary bladder, details above. 5. Bilateral borderline/mild hydronephrosis and hydroureter, likely secondary to the urinary bladder distension. No visible ureteral calculus. 6. No evidence to suggest appendicitis or diverticulitis. A normal appendix is not definitely visible. 7. Mild lower lung opacities and small pleural effusions, see above. 8. Other details/findings discussed above. Chest X-Ray 02/05/25 09:53 IMPRESSION: Cardiomegaly with findings suggesting fluid overload including mild interstitial pulmonary edema and bilateral pleural effusions [id number] with overlying lung compression. Laboratory Results WBC 11.76 10^3/uL (3.29-11.43) H 02/03/25 03:12 RBC 3.78 10^6/uL (3.85-5.65) L 02/03/25 03:12 Hgb 11.20 g/dL (11.27-16.99) L 02/03/25 03:12 Hct 34.2 % (36-47) L 02/03/25 03:12 MCV 90.5 fl (85-98) 02/03/25 03:12 MCH 29.6 pg (27-33) 02/03/25 03:12 MCHC 32.7 g/dL (30-55) 02/03/25 03:12 RDW 13.2 % (12.1-15.1) 02/03/25 03:12 Plt Count 139 10^3/cmm (157-399) L D 02/03/25 03:12 MPV 10.8 fL (7.4-10.4) H 02/03/25 03:12 Neut % (Auto) 81.4 % 02/03/25 03:12 Lymph % (Auto) 8.2 % 02/03/25 03:12 [place] % (Auto) 8.6 % 02/03/25 03:12 Eos % (Auto) 0.2 % 02/03/25 03:12 Baso % (Auto) 0.3 % 02/03/25 03:12 Neut # (Auto) 9.59 10^3/uL (1.8-7.7) H 02/03/25 03:12 Lymph # (Auto) 1.0 10^3/uL (0.8-4.8) 02/03/25 03:12 [place] # (Auto) 1.0 10^3/uL (0.2-0.9) H 02/03/25 03:12 Eos # (Auto) 0.0 10^3/uL (0.0-0.8) 02/03/25 03:12 Baso # (Auto) 0.0 10^3/uL (0.0-0.1) 02/03/25 03:12 Nucleated RBC % (auto) 0 % 02/03/25 03:12 Total Counted 100 (0-100) 01/28/25 20:34 Atypical Lymphs % Not Reportable 01/28/25 20:34 Segmented Neutrophils 89 % 01/28/25 20:34 Band Neutrophils Not Reportable 01/28/25 20:34 Lymphocytes (Manual) 5 % 01/28/25 20:34 Monocytes (Manual) 0.0 % 01/28/25 20:34 Absolute Monocytes 0.0 10^3/cmm (0.1-0.6) L 01/28/25 20:34 Eosinophils (Manual) 1 % 01/28/25 20:34 Absolute Eosinophils 0.1 10^3/cmm (0.0-0.7) 01/28/25 20:34 Basophils (Manual) 0.0 % 01/28/25 20:34 Absolute Basophils 0.0 10^3/cmm (0.0-0.2) 01/28/25 20:34 Metamyelocytes 3.0 % 01/28/25 20:34 Myelocytes 2.0 % 01/28/25 20:34 Nucleated RBCs # 0.0 /100WBC 02/03/25 03:12 Platelet Estimate Decreased (Normal) L 01/28/25 20:34 Specimen Type Arterial 01/28/25 22:06 Sample Site Radial, left 01/28/25 22:06 ABG pH 7.42 (7.35-7.45) 01/28/25 22:06 ABG pCO2 30.2 mmHg (35-45) L 01/28/25 22:06 ABG pO2 73.8 mmHg (80.0-100.0) L 01/28/25 22:06 ABG PO2/FiO2 Ratio 230 01/28/25 22:06 ABG HCO3 19.8 mmol/L (22-26) L 01/28/25 22:06 ABG O2 Saturation 96.3 01/28/25 22:06 ABG Base Excess -3.6 mmol/L (-2.0-2.0) L 01/28/25 22:06 Delvis Test Pos 01/28/25 22:06 A-a O2 Gradient 14.9 mmHg (5-10) H 01/28/25 22:06 Hematocrit 38.7 % (37-47) 01/28/25 22:06 Hgb O2 Saturation 94.4 % (95-100) L 01/28/25 22:06 Carboxyhemoglobin 1.1 %THgb (0.4-20.1) 01/28/25 22:06 Methemoglobin 0.8 % (0.4-1.5) 01/28/25 22:06 Total Hemoglobin 12.6 g/dL (12-16) 01/28/25 22:06 Sodium 136.0 mmol/L (131-143) 01/28/25 22:06 Potassium 3.1 mmol/L (3.5-5.0) L 01/28/25 22:06 Glucose 124.0 mg/dL (70-115) H 01/28/25 22:06 Ionized Calcium 1.1 mmol/L (1.1-1.4) 01/28/25 22:06 O2 Delivery Device Nc 01/28/25 22:06 O2 Liters/Min 3.0 % 01/28/25 22:06 FiO2 32.0 % 01/28/25 22:06 Criminal Intelligence Specialist ID [email or web address] 01/28/25 22:06 Sodium 141 mmol/L (136-145) 02/03/25 08:40 Potassium 3.2 mmol/L (3.5-5.1) L 02/03/25 08:40 Chloride 107 mmol/L (98-107) 02/03/25 08:40 Carbon Dioxide 20 mmol/L (22-29) L 02/03/25 08:40 Anion Gap 17.2 (5-19) 02/03/25 08:40 BUN 36 mg/dL (8-23) H 02/03/25 08:40 Creatinine 0.9 mg/dL (0.5-0.9) 02/06/25 14:26 GFR Calculation Not Reportable 02/06/25 14:26 Glucose 122 mg/dL (65-115) H 02/03/25 08:40 POC Glucose 139 mg/dL (70-110) H 02/05/25 10:47 Calculated Osmolality 302 mOsm/kg (285-295) H 02/03/25 08:40 Lactic Acid 3.3 mmol/L (0.5-2.2) H 01/29/25 03:56 Lactic Acid (Sepsis) 3.2 mmol/L (0.5-2.2) H 01/29/25 06:14 Calcium 9.0 mg/dL (8.5-10.5) 02/03/25 08:40 Magnesium 2.3 mg/dL (1.7-2.3) 02/02/25 01:00 Total Bilirubin 1.0 mg/dL (0.15-1.2) 01/31/25 04:51 AST 17 U/L (0-32) 01/31/25 04:51 ALT 9 U/L (0-33) 01/31/25 04:51 Alkaline Phosphatase 122 U/L (35-105) H 01/31/25 04:51 Troponin T Baseline 201 ng/L (0-10) H* 01/29/25 03:56 Troponin T 120 Minute 233.3 ng/L (0-10) H 01/29/25 06:14 Delta Troponin T 32.3 ABS# (0-10) H* 01/29/25 06:14 Troponin T Hi Sens 6Hr 268.7 ng/L (0-10) H 01/29/25 09:44 Troponin T Hi Sens 6Hr Delta 67.7 ng/L (0-12) H* 01/29/25 09:44 Total Protein 5.7 g/dL (6.6-8.7) L 01/31/25 04:51 Albumin 3.0 g/dL (3.5-5.2) L 01/31/25 04:51 Globulin 2.7 g/dL (1.3-4.6) 01/31/25 04:51 Procalcitonin 30.02 ng/mL (0-0.5) H 01/30/25 06:04 Urine Color Yellow (Yellow) 01/28/25 21:13 Urine Appearance Cloudy (CLEAR) A 01/28/25 21:13 Urine pH 6.0 (5-7) 01/28/25 21:13 Ur Specific [place] 1.010 (1.005-1.030) 01/28/25 21:13 Urine Protein 3+ (Negative) A 01/28/25 21:13 Urine Glucose (UA) Negative (Normal) 01/28/25 21:13 Urine Ketones Negative (Negative) 01/28/25 21:13 Urine Blood 2+ (Negative) A 01/28/25 21:13 Urine Nitrate Positive (Negative) A 01/28/25 21:13 Urine Bilirubin Negative (Negative) 01/28/25 21:13 Urine Urobilinogen 1.0 mg/dL (Negative) 01/28/25 21:13 Ur Leukocyte Esterase 2+ (Negative) A 01/28/25 21:13 Urine RBC 51-100 /hpf (0-2) H 01/28/25 21:13 Urine WBC >100 /hpf (0-5) H 01/28/25 21:13 Ur Squamous Epith Cells 0-5 /hpf (0-5) 01/28/25 21:13 Amorphous Sediment Not Reportable 01/28/25 21:13 Urine Bacteria 4+ /hpf (NONE) H 01/28/25 21:13 Hyaline Casts 1.21 /lpf 01/28/25 21:13 Nasal MRSA (PCR) Not detected (Not Detecte) 01/30/25 16:26 Vancomycin Trough 18.8 ug/mL (10-15) H 02/06/25 14:26 Adenovirus (PCR) Not detected (NOT DETECT) 01/28/25 21:18 C. pneumoniae DNA (PCR) Not detected (NOT DETECT) 01/28/25 21:18 Coronavirus 229E (PCR) Not detected (NOT DETECT) 01/28/25 21:18 Human Metapneumovir PCR Not detected (NOT DETECT) 01/28/25 21:18 Influenza A (H1) PCR Not detected (NOT DETECT) 01/28/25 21:18 Influ A (H1/09) PCR Not detected (NOT DETECT) 01/28/25 21:18 Influenza A (H3) PCR Not detected (NOT DETECT) 01/28/25 21:18 Influenza Type A (PCR) Not detected (NOT DETECT) 01/28/25 21:18 Influenza Type B (PCR) Not detected (NOT DETECT) 01/28/25 21:18 M. pneumoniae (PCR) Not detected (NOT DETECT) 01/28/25 21:18 Parainfluenza 1 (PCR) Not detected (NOT DETECT) 01/28/25 21:18 Parainfluenza 2 (PCR) Not detected (NOT DETECT) 01/28/25 21:18 Parainfluenza 3 (PCR) Not detected (NOT DETECT) 01/28/25 21:18 Parainfluenza 4 (PCR) Not detected (NOT DETECT) 01/28/25 21:18 RSV Type A (PCR) Not detected (NOT DETECT) 01/28/25 21:18 RSV Type B (PCR) Not detected (NOT DETECT) 01/28/25 21:18 Entero/Rhino (PCR) Not detected (NOT DETECT) 01/28/25 21:18 SARS-CoV-2 (PCR) Not detected (NOT DETECT) 01/28/25 21:18 Vitals Last Vital Signs Temp 97.7 F 02/07/25 11:27 Pulse 96 02/07/25 11:27 Resp 28 H 02/07/25 11:27 BP 124/87 02/07/25 11:27 Pulse Ox 94 02/07/25 11:27 O2 Del Method Room Air 02/07/25 11:27 O2 Flow Rate 0 02/03/25 07:10 Discharge Plan Discharge Patient Disposition: Hospice - Medical Facility Condition: Stable Prescriptions: New multivitamin with folic acid [Thera] 400 mcg Tablet 1 tab PO ONCE Qty: 30 0RF doxycycline hyclate 100 mg capsule 100 mg PO BID 21 Days Qty: 42 0RF levofloxacin 250 mg tablet 250 mg PO DAILY 10 Days Qty: 7 0RF Continued aspirin [Adult Low Dose Aspirin] 81 mg tablet,delayed release (DR/EC) 81 mg PO DAILY polyethylene glycol 3350 [Miralax] 17 gram/dose powder 17 g PO DAILY hydroxyzine HCl 10 mg tablet 10 mg PO TID Qty: 90 11RF carvedilol 12.5 mg tablet See Rx Instructions .ROUTE .COMPLEX Qty: 270 3RF Dose Instruction: TAKE 1 TABLET BY MOUTH IN THE MORNING AND 2 TABLETS IN THE EVENING Rx Instructions: TAKE 1 TABLET BY MOUTH IN THE MORNING AND 2 TABLETS IN THE EVENING hydrocodone-acetaminophen 5-325 mg tablet 1 tab PO QID PRN (Reason: pain) 30 Days Qty: 120 0RF PreserVision AREDS 2,148 mcg-113 mg-45 mg-17.4mg Tablet 1 tab PO BID Rx Instructions: administer with AM and PM meals Folate 666 Mcg 2 tab PO BID famotidine 20 mg tablet 20 mg PO BID furosemide 20 mg tablet 20 mg PO BID Systane Complete 0.6 % Drops 1 drp OPHTHALMIC (EYE) BID hydrocortisone 1 % Cream See Rx Instructions .ROUTE .COMPLEX PRN (Reason: Skin Irritation) Rx Instructions: 1 applic topically to back, arms and other areas of rash twice daily. cyanocobalamin (vitamin B-12) 1,000 mcg Tablet, Sublingual 1,000 mcg SUBLINGUAL DAILY furosemide 20 mg Tablet 20 - 40 mg PO DAILY PRN (Reason: Edema) potassium chloride 10 mEq tablet,ER particles/crystals 10 meq PO DAILY Discontinued buspirone 10 mg tablet 10 mg PO BID Qty: 60 11RF olanzapine [Zyprexa] 5 mg tablet 5 mg PO BID Qty: 60 11RF quetiapine [Seroquel] 25 mg tablet 25 mg PO BID Qty: 60 11RF fentanyl 50 mcg/hr patch 72 hour 1 patch transdermal Q72H 30 Days Qty: 5 0RF Solution Specialist OK for DC: Hospitalist Discharge Order = DC NOW: Discharge Order (Routine); Ordered 02/07/25 Ordered By: Zulema Goldsmith Other Ambulatory Orders: DME: Hospital Bed (Order) Location: None Selected Ordered By: Zulema Goldsmith Referrals: [facility] [Outside] [facility] [Outside] Ezequiel Lynch MD [Primary Care Provider, Family Practice] Discharge Diet: Cardiac Discharge Activity: Resume usual activity Patient Instructions: Doxycycline (By mouth) (Acticlate, Adoxa, Avidoxy, Monodox, Doryx), Hospice Care, Heart Failure (DC), Urinary Tract Infection in Women (DC), Sepsis (DC), Acute Urinary Retention in Women (GEN), Altered Mental Status (ED), CHF Stoplight, Opioid Safety, Patient Portal & Hair Instructions, Pyelonephritis Discharge Attestations Time Spent in Discharge Care*: less than 30 min Time Spent in Smoking Cessation: Patient is discharged to the long-term with hospice care per family request Quality Metrics Clinical Quality Measures [ No reported AMI, CVA or VTE this stay] Coding Level of Care Code 97113 Diagnoses CHF (congestive heart failure) I50.9 Critical illness myopathy G72.81 Indwelling Yi catheter present Z97.8 Urinary retention R33.9 Leukocytosis D72.829 Pyelonephritis N12 Gram-negative bacteremia R78.81 Sepsis secondary to UTI A41.9; N39.0 Time Spent (min) 30
--- NOTE | 2025-02-07 14:55 | PC.NURSE ---
Report: Report called to Jose at [facility]
[2025-02-07 14:59] VITALS: BP 124/7; PULSE 96; RESP 28; TEMP 36.5; O2SAT 94
== END 2025-02-07 15:07 | disposition hospice, inpatient (51) | DRG 871 ==
LOC: ER 22:34 → MEDSURG 22:53
PROVIDERS: Internal Medicine; Admitting Provider Hospitalist; Emergency Provider Student in an Organized Health Care Education/Training Program; PCP Family Medicine; Visit Provider Internal Medicine
DX: A41.9 Sepsis, unspecified organism (principal); I50.43 Acute on chronic combined systolic (congestive) and diastolic (congestive) heart failure; G72.81 Critical illness myopathy; N11.1 Chronic obstructive pyelonephritis; F03.911 Unspecified dementia, unspecified severity, with agitation; E87.3 Alkalosis; G93.40 Encephalopathy, unspecified; I24.89 Other forms of acute ischemic heart disease; I11.0 Hypertensive heart disease with heart failure; G89.29 Other chronic pain; R62.7 Adult failure to thrive; Z68.27 Body mass index [BMI] 27.0-27.9, adult; Z66 Do not resuscitate; F32.A Depression, unspecified; M06.9 Rheumatoid arthritis, unspecified; Z79.82 Long term (current) use of aspirin
CPT/HCPCS: 36415; 36416; 36600; 51702; 51798; 70450; 71045; 74176; 80048; 80051; 80053; 80202; 81001; 82330; 82565; 82805; 82962; 83605; 83735; 84145; 84484; 85007; 85025; 87040; 87077; 87086; 87186; 87205; 87486; 87581; 87633; 93005; 93306; 96365; 96372; 96375; 97110; 97162; 97167; 97530; 99285; 99291; J0131; J0696; J1644; J1938; J2405; J2543; J3373; J3490; J7030; J7050; J7120; J9999